=== PATIENT | female | born 2000 | race Caucasian/White ===

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

== ENCOUNTER 2020-02-20 13:33 | Emergency (ER) | payer OTHER, SELFPAY ==
[2020-02-20 14:08] VITALS: BP 132/51; PULSE 108; RESP 18; TEMP 36.3; O2SAT 100
[2020-02-20 14:25] LABS: Basophils Absolute Auto 0.1 K/mm3 (0.0-0.1); Basophils Percent Auto 0.5 % (0.2-1.2); Eosinophils Absolute Auto 0.2 K/mm3 (0-0.3); Eosinophils Percent Auto 2.2 % (0-4.4); Hematocrit 40.5 % (37.0-47.0); Hemoglobin 13.1 g/dL (12.0-15.0); Immature Granulocyte Absolute 0.03 K/mm3 (0.00-0.031); Immature Granulocyte Percent A 0.3 % (0-0.5); Lymphocytes Absolute Auto 3.52 K/mm3 (0.9-3.2); Lymphocytes Percent Auto 35.9 % (18.3-44.2); Mean Corpuscular HGB Conc 32.3 g/dl (32-36); Mean Corpuscular Hemoglobin 28.6 pg (26-34); Mean Corpuscular Volume 88.4 fl (80-100); Mean Platelet Volume 9.8 fl (7.4-10.4); Monocytes Absolute Auto 0.6 K/mm3 (0.1-0.6); Monocytes Percent Auto 5.6 % (2.6-8.5); Neutrophils Absolute Auto 5.4 K/mm3 (1.3-6.7); Neutrophils Percent Auto 55.5 % (45.5-73.1); Platelet Count Result 276 k/mm3 (150-375); Red Blood Count 4.58 M/mm3 (4.2-5.4); Red Cell Distribution Width 13.7 % (11.5-14.5); White Blood Count 9.8 K/mm3 (4.5-10.0)
[2020-02-20 14:37] LABS: Alanine Aminotransferase 22 U/L (4-35); Albumin Level 4.5 g/dL (3.7-5.6); Alkaline Phosphatase 149 U/L (45-116); Anion Gap 9 mmol/L (8-16); Aspartate Amino Transferase 24 U/L (14-36); Bilirubin,Total 0.2 mg/dL (0.2-1.3); Blood Urea Nitrogen 8 mg/dL (8-21); Calcium 9.7 mg/dL (8.9-10.7); Carbon Dioxide 27 mmol/L (22-30); Chloride 106 mmol/L (98-107); Estimated CRCL calculation 124 ml/min; Estimated Glomerular Filt Rate > 60; Glucose 90 mg/dL (65-105); Lipase 24 U/L (23-300); Sodium 142 mmol/L (134-143)
[2020-02-20 14:45] LABS: Add Urine Microscopic? YES; Appearance Urine Cloudy (Clear); Bacteria Urine Trace /hpf; Bilirubin Urine Negative (Negative); Blood Urine Negative (Negative); Color Urine Yellow (Yellow); Glucose Urine UA Negative (Negative); Ketones Urine Negative (Negative); Leukocyte Esterase Ur Negative LEU/UL (Negative); Mucus Urine Few /lpf; Nitrate Urine Negative (Negative); Protein Urine 1+ mg/dL (Negative); RBC Urine 0-2 /hpf (0-2); Squamous Epithelial Cell Urine Many /hpf (Few); Urobilinogen Urine Negative mg/dL (<2.0); WBC Urine 0-3 /hpf
--- NOTE | 2020-02-20 15:05 | ED.ABDPAIN ---
HPI - Abdominal Pain General Chief Complaint: Abdominal Pain Stated Complaint: abdominal pain Time Seen by Provider: 02/20/20 14:55 Source: patient Mode of arrival: ambulatory Limitations: no limitations History of Present Illness HPI narrative: Patient is a 19-year-old female complaining of abdominal pain diffuse, dull ache, 2 out of 10, nonradiating, intermittent started approximately 2 weeks ago. Patient also states that she has not had a menstrual cycle since her Implanon was removed a month ago and wants to know if she is . Patient denies any nausea vomiting diarrhea or fever. Patient denies vaginal bleeding or discharge. Related Data Home Medications Medication Instructions Recorded Confirmed aripiprazole 20 mg PO DAILY 11/17/19 Allergies Allergy/AdvReac Type Severity Reaction Status Date / Time latex Allergy Mild Rash Verified 11/17/19 10:11 grape flavor AdvReac Nausea and Verified 11/17/19 10:11 Vomiting Review of Systems Review of Systems: All systems reviewed & are unremarkable except as noted in HPI and below Constitutional: Constitutional: Denies body ache(s), Denies chills, Denies excessive sweating, Denies fatigue, Denies fever(s), Denies headache(s), Denies lethargy, Denies malaise, Denies weakness and Denies weight loss Eyes: Eyes: Denies blurry vision, Denies change in vision and Denies loss of vision ENT: Denies dizziness, Denies ear discharge, Denies headache(s), Denies lip swelling, Denies epistaxis, Denies nasal congestion, Denies neck pain, Denies throat swelling and Denies tongue swelling Cardiovascular: Cardiovascular: Denies chest pain, Denies chest pain at rest, Denies chest pain with activity, Denies diaphoresis, Denies rapid heart rate, Denies edema, Denies irregular heart rhythm, Denies lightheadedness, Denies palpitations, Denies dyspnea and Denies dyspnea on exertion Respiratory: Respiratory: Denies chest congestion, Denies cough, Denies hemoptysis, Denies dyspnea and Denies dyspnea on exertion Gastrointestinal: Gastrointestinal: Denies melena, Denies hematochezia, Denies diarrhea, Denies nausea, Denies vomiting and Denies hematemesis Musculoskeletal: Musculoskeletal: Denies abnormal gait, Denies deformity, Denies joint swelling, Denies limited range of motion, Denies neck pain and Denies numbness Neurologic: Denies Abnormal speech present, Denies abnormal gait, Denies confusion, Denies dizziness, Denies headache(s), Denies focal weakness, Denies loss of vision, Denies numbness, Denies Other visual disturbances, Denies Sensory deficit (Neuro) and Denies weakness Psychiatric: Psychiatric: Denies confusion, Denies depression, Denies auditory hallucinations, Denies homicidal ideation and Denies suicidal ideation Endocrine: Endocrine: Denies cold intolerance, Denies excessive sweating, Denies fatigue, Denies heat intolerance and Denies palpitations Hematologic/Lymphatic: Hematologic/Lymphatic: Denies easy bleeding and Denies easy bruising Allergic/Immunologic: Allergic/Immunologic: Denies lip swelling, Denies throat swelling and Denies tongue swelling PMFSH Past Medical History Medical History (Updated 02/20/20 @ 16:03 by Live Moreno MD) Anxiety Bipolar disorder Borderline personality disorder Depression Panic disorder Surgical History Surgical History No significant past surgical history Social History Social History Smoking status: Never smoker Alcohol intake: never Substance use: never Gender identity (if verbalized by the patient): Female Exam Const: General: cooperative, healthy appearing, comfortable, no acute distress, well developed, alert and awake; No confusion Orientation/consciousness: oriented to person, oriented to place, oriented to time, patient oriented x3 and No confusion Limitations: no limitations HENMT: Head: no
[2020-02-20 16:17] VITALS: BP 138/78; PULSE 84; RESP 17; O2SAT 98
== END 2020-02-20 16:17 | disposition home or self-care (01) ==
PROVIDERS: Emergency Medicine; Emergency Provider Emergency Medicine
DX: R10.84 Generalized abdominal pain (principal); F31.9 Bipolar disorder, unspecified; F60.3 Borderline personality disorder
CPT/HCPCS: 36415; 80053; 81001; 81025; 83690; 85025; 99283

== ENCOUNTER 2020-05-06 14:30 | Emergency (ER) | payer OTHER, SELFPAY ==
--- NOTE | ~2020-05-06 | XR_ITS ---
EXAMINATION: XR knee RT min 4V DATE: 05/06/2020 15:44 INDICATION: Right knee injury and pain. TECHNIQUE: 5 views of right knee were obtained. COMPARISON: None. FINDINGS: Bone alignment is normal. No fracture. Joint spaces are well maintained. There is no knee j oint effusion. IMPRESSION: 1. Normal right knee. Reviewed, dictated and finalized at location A. [employer] IMPRESSION: 1. Normal right knee.
[2020-05-06 14:40] VITALS: BP 173/68; PULSE 98; RESP 20; TEMP 36.6; O2SAT 100
--- NOTE | 2020-05-06 15:13 | ED.GENADULT ---
HPI - General Adult General Chief complaint: Extremity Injury, Lower Stated complaint: right leg pain Source: patient Mode of arrival: ambulatory Limitations: no limitations History of Present Illness HPI narrative: Patient presents for evaluation of right knee pain. She indicates she tripped while working at [employer] yesterday landed on both knees. She did not hit her head or have a loss of consciousness. She states a coworker opened her up and she heard 4 pops in the knee . She went back to work today and she took a break due to some pain she experienced in anterior aspect of right knee. She states following the fall yesterday she had a charley horse, but that has resolved. She currently rates pain as 3/10. Related Data Home Medications Medication Instructions Recorded Confirmed No Home Medications 05/06/20 05/06/20 Allergies Allergy/AdvReac Type Severity Reaction Status Date / Time latex Allergy Mild Hives Verified 05/06/20 14:49 acetaminophen [From [place]] AdvReac Mild Nausea and Verified 05/06/20 14:49 Vomiting amoxicillin AdvReac Mild Nausea and Verified 05/06/20 14:50 Vomiting grape flavor AdvReac Mild Nausea and Verified 05/06/20 14:49 Vomiting hydrocodone [From [place]] AdvReac Mild Nausea and Verified 05/06/20 14:49 Vomiting Review of Systems Review of Systems: Narrative: CONSTITUTIONAL: Denies fever, chills, or sweats. EYES: Denies visual changes, redness, or discharge. ENT: Denies rhinorrhea, congestion, sore throat, or otalgia. CARDIOVASCULAR: Denies chest pain, palpitations, or edema. RESPIRATORY: Denies cough or dyspnea. GASTROINTESTINAL: Denies abdominal pain, nausea, vomiting, or diarrhea. GENITOURINARY: Denies dysuria or hematuria. SKIN: Denies rash or itching. MUSCULOSKELETAL: Denies back pain. Reports right knee pain. NEUROLOGIC: Denies headache, numbness, dizziness, or weakness. PSYCHIATRIC: Denies anxiety or depression. [facility] Past Medical History Medical History (Updated 05/06/20 @ 15:53 by Austin Nichole, HAILEE, LIBBY) Anxiety Bipolar disorder Borderline personality disorder Depression Deviated septum Panic disorder Surgical History Surgical History Hx of tonsillectomy No significant past surgical history Family History Family History Father Schizophrenia Mother Bipolar disorder Social History Social History (Updated 05/06/20 @ 15:20 by Austin Nichole, HAILEE, ) Smoking status: Never smoker Alcohol intake: never Substance use: never Living arrangements: alone Occupation/Education: occupation Additional occupation/education comments: works at [employer] Gender identity (if verbalized by the patient): Female Sexual Orientation (if Verbalized by the Patient): Straight or Heterosexual Spiritual care concerns: No Exam Narrative: Exam Narrative: GENERAL: Well-appearing, well-nourished, and in no acute distress. HEAD: Normocephalic, atraumatic. EYES: PERRLA and EOMI. ENT: Nares clear, no rhinorrhea or epistaxis. Mucous membranes moist. Oropharynx without tonsillar hypertrophy exudate or other lesions. Bilateral TMs pearly steele nonbulging NECK: Supple. No adenopathy or masses. No carotid bruits or JVD CHEST: Clear to auscultation. No respiratory distress. No wheezes rales or rhonchi HEART: Regular rate and rhythm. No murmur heard. Normal peripheral pulses. ABDOMEN: Soft, nontender, nondistended, normal active bowel sounds. EXTREMITIES: Normal range of motion. No edema. Mild tenderness in anterior aspect of right knee. +crepitus right knee without obvious deformity. Ambulatory with steady gait SKIN: Warm, dry, no rash. NEURO: No focal deficits. Alert and oriented x3. PSYCH: Normal mood and affect. Course Course Emergency Course: This is a 19-year-old female who presents with right knee pain following a f
== END 2020-05-06 15:58 | disposition home or self-care (01) ==
PROVIDERS: Emergency Provider Nurse Practitioner
DX: S80.01XA Contusion of right knee, initial encounter (principal); W01.0XXA Fall on same level from slipping, tripping and stumbling without subsequent striking against object, initial encounter; Y99.0 Civilian activity done for income or pay
CPT/HCPCS: 73564; 81025; 99213; G0463

== ENCOUNTER 2020-07-17 07:32 | Outpatient (CLI) | payer OTHER, SELFPAY ==
--- NOTE | ~2020-07-17 | US_ITS ---
US right upper quadrant INDICATION: Elevated liver enzymes PROCEDURE: Realtime right upper abdominal ultrasound. COMPARISON: No prior studies for comparison. FINDINGS: The pancreas is normal without focal mass or pancreatic ductal dilation. Liver echotexture is normal without focal mass or intrahepatic biliary dilatation. There is normal directional flow i n the portal vein. The gallbladder is normal without stones, gallbladder wall thickening or pericholecystic fluid. Comm on bile duct measures 3 mm. No sonographic Bautista's sign. IMPRESSION: 1: Normal limited abdominal ultrasound. Reviewed, dictated and finalized at location A.
== END 2020-07-17 07:33 | disposition home or self-care (01) ==
PROVIDERS: PCP Emergency Medicine; Visit Provider Emergency Medicine
DX: R74.01 Elevation of levels of liver transaminase levels (principal)
CPT/HCPCS: 76705

== ENCOUNTER 2020-09-19 19:01 | Emergency (ER) | payer OTHER, SELFPAY ==
--- NOTE | ~2020-09-19 | XR_ITS ---
XR hand RT min 3V 09/19/2020 19:27 INDICATION: Right hand pain PROCEDURE: 3 views right hand COMPARISON: No prior studies for comparison. FINDINGS: Fracture, dislocation or subluxation is not identified. The soft tissues appear within norm al limits. No foreign bodies are identified. IMPRESSION: 1: NO ACUTE BONE OR JOINT ABNORMALITY IDENTIFIED. Reviewed, dictated and finalized at location A.
[2020-09-19 19:10] VITALS: BP 151/75; PULSE 89; RESP 16; TEMP 37.3; O2SAT 100
--- NOTE | 2020-09-19 19:37 | PC.NURSE ---
PT DECLINED ICE FOR COMFORT
--- NOTE | 2020-09-19 19:38 | ED.UPPEXIN ---
HPI - Extremity Injury (Upper) General Chief Complaint: Extremity Injury, Upper Stated Complaint: right hand injury and hives Time Seen by Provider: 09/19/20 19:38 Source: patient and RN notes reviewed Mode of arrival: ambulatory Limitations: no limitations History of Present Illness HPI narrative: 18-year-old female presents with multiple complaints. She reports approximate 1 hour ago she punched a wall with her right hand. She reports pain at the base of the third digit. She reports pain radiates to the thumb. She reports bruising. She also reports for several days she has had a rash on her face that started on her cheeks and is spread to her ears. She reports it is occasionally itchy. She denies any intervention for the rash. She denies swollen lips, swollen tongue, trouble breathing. She denies nausea, vomiting, diarrhea. MD complaint: injury to: right and hand Related Data Home Medications Medication Instructions Recorded Confirmed hydroxyzine pamoate 25 mg PO QID PRN 09/19/20 09/19/20 ziprasidone HCl 20 mg PO BID 09/19/20 09/19/20 Allergies Allergy/AdvReac Type Severity Reaction Status Date / Time latex Allergy Mild Hives Verified 09/19/20 19:23 acetaminophen [From [place]] AdvReac Mild Nausea and Verified 09/19/20 19:23 Vomiting amoxicillin AdvReac Mild Nausea and Verified 09/19/20 19:23 Vomiting grape flavor AdvReac Mild Nausea and Verified 09/19/20 19:23 Vomiting hydrocodone [From [place]] AdvReac Mild Nausea and Verified 09/19/20 19:23 Vomiting Review of Systems Review of Systems: Narrative: CONSTITUTIONAL: Denies malaise, chills, sweats, or fever. EYES: Denies visual changes, redness, or discharge. ENT: Denies swollen lips, swollen tongue CARDIOVASCULAR: Denies chest pain, palpitations, or edema. RESPIRATORY: Denies cough or dyspnea. GASTROINTESTINAL: Denies abdominal pain, nausea, vomiting, diarrhea SKIN: Reports occasionally itchy rash on her face MUSCULOSKELETAL: Reports right hand pain below the third digit NEUROLOGIC: Denies numbness, weakness All systems reviewed & are unremarkable except as noted in HPI and below PMFSH Past Medical History Medical History (Updated 09/19/20 @ 19:46 by Whitney Flores NP) Anxiety Bipolar disorder Borderline personality disorder Depression Deviated septum Panic disorder Surgical History Surgical History Hx of tonsillectomy No significant past surgical history Family History Family History Father Schizophrenia Mother Bipolar disorder Social History Social History (Updated 05/06/20 @ 15:20 by HAILEE Baez, ) Smoking status: Never smoker Alcohol intake: never Substance use: never Additional occupation/education comments: works at [employer] Gender identity (if verbalized by the patient): Female Spiritual care concerns: No Comments At time of signature, agree with nursing past medical, surgical, social and family history. There is no relevant family history pertinent to the presenting complaint Exam Narrative: Exam Narrative: GENERAL: Well-appearing, well-nourished, and in no acute distress. HEAD: Normocephalic EYES: PERRLA, conjunctivae clear NECK: Supple. CHEST: Speaks in full sentences. No respiratory distress. HEART: Regular rate and rhythm. Normal and equal peripheral pulses. EXTREMITIES: Right hand and digits of hand have normal strength and sensation. 5/5 strength with digit flexion, extension. Range of motion normal. No clubbing, cyanosis, or edema noted. tenderness below the third digit with mild ecchymosis. Skin intact. Normal digital cascade with flexion of fingers, median, ulnar and radial nerve intact. Normal sensation of each side of finger. Can perform 'okay' sign, 'cross over finger test of index and middle fingers' and 'thumbs up' sign. No scissoring. Normal thumb
== END 2020-09-19 19:52 | disposition home or self-care (01) ==
PROVIDERS: Emergency Provider Nurse Practitioner; PCP Nurse Practitioner Family
DX: S69.91XA Unspecified injury of right wrist, hand and finger(s), initial encounter (principal); W22.8XXA Striking against or struck by other objects, initial encounter; F31.9 Bipolar disorder, unspecified
CPT/HCPCS: 73130; 99213; G0463

== ENCOUNTER 2020-10-26 19:06 | Emergency (ER) | payer OTHER, SELFPAY ==
[2020-10-26 19:13] VITALS: BP 137/69; PULSE 103; RESP 16; TEMP 37.2; O2SAT 100
--- NOTE | 2020-10-26 19:40 | ED.GENADULT ---
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 MACHINE OPERATOR THERMIT who is set her up for an appointment later next week for retest Related Data Home Medications Medication Instructions Recorded Confirmed hydroxyzine pamoate 25 mg PO QID PRN 09/19/20 10/26/20 ziprasidone HCl 20 mg PO BID 09/19/20 10/26/20 sertraline 50 mg PO DAILY 10/26/20 10/26/20 Allergies Allergy/AdvReac Type Severity Reaction Status Date / Time latex Allergy Mild Hives Verified 10/26/20 19:24 cinnamon Allergy Swelling Verified 10/26/20 19:25 of Lip/Tongue/Throat acetaminophen [From [place]] AdvReac Mild Nausea and Verified 10/26/20 19:24 Vomiting amoxicillin AdvReac Mild Nausea and Verified 10/26/20 19:24 Vomiting grape flavor AdvReac Mild Nausea and Verified 10/26/20 19:24 Vomiting hydrocodone [From [place]] AdvReac Mild Nausea and Verified 10/26/20 19:24 Vomiting Review of Systems Review of Systems: Narrative: CONSTITUTIONAL: Denies fever, chills, sweats. EYES: Denies visual changes, redness, discharge. ENT: Denies rhinorrhea, congestion, sore throat, otalgia. CARDIOVASCULAR: Denies chest pain, palpitations, edema. RESPIRATORY: Denies dyspnea, wheezing, cough GASTROINTESTINAL: Denies abdominal pain,has nausea x 3 weeks, vomiting, diarrhea. GENITOURINARY: Denies dysuria, hematuria, abnormal discharge SKIN: Denies rash or itching. NEUROLOGIC: Denies numbness, or focal weakness. PSYCHIATRIC: Denies anxiety or depression. [facility] Past Medical History Medical History Anxiety Bipolar disorder Borderline personality disorder Depression Deviated septum Panic disorder Surgical History Surgical History Hx of tonsillectomy No significant past surgical history Family History Family History Father Schizophrenia Mother Bipolar disorder Social History Social History Smoking status: Never smoker Alcohol intake: never Substance use: never Additional occupation/education comments: works at [employer] Gender identity (if verbalized by the patient): Female Spiritual care concerns: No Comments At time of signature, I agree with nursing past medical, surgical, social and family history. There is no relevant family history pertinent to the presenting complaint. Exam Narrative: Exam Narrative: GENERAL: This is a well-nourished, well-developed patient, in mild distress. HEAD: normocephalic, atraumatic. EYES: Sclera clear/white. Vision is grossly intact. EARS: External ears normal, . Hearing grossly intact. NOSE: External nose normal without nasal discharge, nares without redness, no rhinorrhea. THROAT: Mucous membranes moist, NECK: Neck supple, CARDIOVASCULAR: Regular rate and rhythm without murmurs, gallops, or rubs. RESPIRATORY: Clear to auscultation. Breath sounds equal bilaterally. No wheezes, rales, or rhonchi. GASTROINTESTINAL: Abdomen soft, SKIN: warm, intact with no suspicious lesions or rash, good texture and turgor. NEURO: awake, alert, and oriented to person, place and time. There were no obvious focal neurologic abnormalities. Steady gait EXTREMITIES: Normal range of motion. BACK: Nontender without deformity Course Course Emergency Course: Patient comes to [facility] for test as has been nausea for 3 weeks and her WELDING MACHINE OPERATOR THERMIT asked
== END 2020-10-26 19:51 | disposition home or self-care (01) ==
PROVIDERS: Emergency Provider Nurse Practitioner; PCP Nurse Practitioner Family
DX: Z32.02 Encounter for pregnancy test, result negative (principal); R11.0 Nausea; F31.9 Bipolar disorder, unspecified; F41.9 Anxiety disorder, unspecified
CPT/HCPCS: 81003; 81025; 99213; G0463

== ENCOUNTER 2020-12-03 11:09 | Emergency (ER) | payer OTHER, SELFPAY ==
--- NOTE | 2020-12-03 11:12 | ED.URI ---
HPI - URI/Sore Throat General Chief Complaint: Upper Respiratory Infection Stated Complaint: nasal pain, swollen and sore Throat, headaches Time Seen by Provider: 12/03/20 11:13 Source: patient and RN notes reviewed History of Present Illness HPI Narrative: Patient is a 20-year-old female who presents the urgent care with complaints of nasal drainage, sore throat, headache. Patient denies of any known fevers. Denies body aches. States that her symptoms started 3 days ago. Denies of any known exposure to Covid and states that she has not been vaccinated. Patient has had exposure to strep but states that she has not had strep since her tonsils were removed years ago . No other acute complaints. No acute distress noted. Patient aware of the plan of care. Some parts of this dictation were generated by voice recognition software and may contain typographical and/or grammatical inaccuracies. Related Data Home Medications Medication Instructions Recorded Confirmed hydroxyzine pamoate 25 mg PO QID PRN 09/19/20 10/26/20 ziprasidone HCl 20 mg PO BID 09/19/20 10/26/20 sertraline 50 mg PO DAILY 10/26/20 10/26/20 Allergies Allergy/AdvReac Type Severity Reaction Status Date / Time latex Allergy Mild Hives Verified 10/26/20 19:24 cinnamon Allergy Swelling Verified 10/26/20 19:25 of Lip/Tongue/Throat acetaminophen [From [place]] AdvReac Mild Nausea and Verified 10/26/20 19:24 Vomiting amoxicillin AdvReac Mild Nausea and Verified 10/26/20 19:24 Vomiting grape flavor AdvReac Mild Nausea and Verified 10/26/20 19:24 Vomiting hydrocodone [From [place]] AdvReac Mild Nausea and Verified 10/26/20 19:24 Vomiting Review of Systems Review of Systems: CONSTITUTIONAL: Denies fever, chills, or sweats. EYES: Denies visual changes, redness, or discharge. ENT: Reports of rhinorrhea, nasal drainage, sore throat CARDIOVASCULAR: Denies chest pain, palpitations, or edema. RESPIRATORY: Denies cough or dyspnea. GASTROINTESTINAL: Denies abdominal pain, nausea, vomiting, or diarrhea. GENITOURINARY: Denies dysuria or hematuria. SKIN: Denies rash or itching. MUSCULOSKELETAL: Denies back pain, joint pain, or myalgia. NEUROLOGIC: Reports of headache All other systems reviewed are negative, except as documented in HPI. [facility] Past Medical History Medical History Anxiety Bipolar disorder Borderline personality disorder Depression Deviated septum Panic disorder Surgical History Surgical History Hx of tonsillectomy No significant past surgical history Family History Family History Father Schizophrenia Mother Bipolar disorder Social History Social History Smoking status: Never smoker Alcohol intake: never Substance use: never Additional occupation/education comments: works at [employer] Gender identity (if verbalized by the patient): Female Spiritual care concerns: No Comments At the time of my signature, I reviewed and agree with the nursing past medical, surgical, social, and family history. There is no relevant family history pertinent to the patient complaint. Exam Narrative: GENERAL: This is a well-nourished, well-developed patient, in no apparent distress. HEAD: normocephalic, atraumatic. EYES: PERRL. Sclera clear/white. Vision is grossly intact. EARS: External ears normal, auditory canals clear and without drainage, TMs normal without perforation. Hearing grossly intact. Noted cerumen bilaterally without impaction NOSE: External nose normal with no obvious nasal discharge, nares without redness, no rhinorrhea. THROAT: Mucous membranes moist, posterior pharynx clear. Mild postnasal drainage NECK: Neck supple, non-tender without lymphadenopathy CARDIOVASCULAR: Regular rate and rh
[2020-12-03 11:13] VITALS: BP 146/88; PULSE 74; RESP 20; TEMP 37.2; O2SAT 100
[2020-12-04 17:39] LABS: SARS-CoV-2 RNA PCR Negative
== END 2020-12-03 11:30 | disposition home or self-care (01) ==
PROVIDERS: Emergency Provider Nurse Practitioner Family; PCP Nurse Practitioner Family
DX: J06.9 Acute upper respiratory infection, unspecified (principal); Z20.822 Contact with and (suspected) exposure to COVID-19; F41.9 Anxiety disorder, unspecified; F31.9 Bipolar disorder, unspecified
CPT/HCPCS: 87081; 87880; 99213; C9803; G0463; U0003; U0005

== ENCOUNTER 2021-04-05 12:59 | Emergency (ER) | payer OTHER, MEDICAID, SELFPAY ==
--- NOTE | ~2021-04-05 | XR_ITS ---
EXAMINATION: XR finger 3rd LT min 2V INDICATION: Left third finger pain TECHNIQUE: Four views of the left third finger are obtained. COMPARISON: None available FINDINGS: There is soft tissue swelling of the finger. Bone alignment is normal. There is fracture. T he joint spaces are normal. IMPRESSION: 1. Soft tissue swelling without acute osseous abnormality. Reviewed, dictated and finalized at location A. ANALYTICS CHIEF SCIENTIST
[2021-04-05 13:11] VITALS: BP 113/76; PULSE 106; RESP 14; TEMP 37; O2SAT 100
[2021-04-05 13:15] VITALS: BP 113/76; PULSE 106; RESP 14; TEMP 37; O2SAT 100
--- NOTE | 2021-04-05 13:31 | ED.UPPEXIN ---
HPI - Extremity Injury (Upper) General Chief Complaint: Extremity Injury, Upper Stated Complaint: left hand finger injury Source: patient and RN notes reviewed Mode of arrival: ambulatory History of Present Illness HPI narrative: This is a 20-year-old female presented to urgent care with left middle finger pain status post trauma. According to patient she slammed her finger in a door yesterday. She notes that her finger started swelling. No neurovascular deficiency noted, compartmental syndrome negative, sensations positive, pulses palpable, capillary refill within normal limits Related Data Home Medications Medication Instructions Recorded Confirmed hydroxyzine pamoate 25 mg PO QID PRN 09/19/20 04/05/21 ziprasidone HCl 20 mg PO DAILY 09/19/20 04/05/21 sertraline 150 mg PO DAILY 10/26/20 04/05/21 albuterol 90 mcg INHALATION Q4H PRN 04/05/21 04/05/21 ergocalciferol (vitamin D2) 1,250 mcg PO WEEKLY 04/05/21 04/05/21 [Vitamin D2] ziprasidone HCl 40 mg PO HS 04/05/21 04/05/21 Allergies Allergy/AdvReac Type Severity Reaction Status Date / Time latex Allergy Mild Hives Verified 04/05/21 13:14 cinnamon Allergy Swelling Verified 04/05/21 13:14 of Lip/Tongue/Throat acetaminophen [From [place]] AdvReac Mild Nausea and Verified 04/05/21 13:14 Vomiting amoxicillin AdvReac Mild Nausea and Verified 04/05/21 13:14 Vomiting grape flavor AdvReac Mild Nausea and Verified 04/05/21 13:14 Vomiting hydrocodone [From [place]] AdvReac Mild Nausea and Verified 04/05/21 13:14 Vomiting diphenhydramine AdvReac Nightmare Verified 04/05/21 13:15 [From [place]] Review of Systems Review of Systems: A 14 organ system Review of Systems was performed and pertinent positives included in the HPI, otherwise remaining ROS is negative. [facility] Past Medical History Medical History Anxiety Bipolar disorder Borderline personality disorder Depression Deviated septum Panic disorder Surgical History Surgical History Hx of tonsillectomy No significant past surgical history Family History Family History Father Schizophrenia Mother Bipolar disorder Social History Social History Smoking status: Never smoker Alcohol intake: never Substance use: never Additional occupation/education comments: works at [employer] Gender identity (if verbalized by the patient): Female Sexual Orientation (if Verbalized by the Patient): Straight or Heterosexual Spiritual care concerns: No Exam Narrative: GENERAL: This is a well-nourished, well-developed patient, in no apparent distress. HEAD: normocephalic, atraumatic. EYES: PERRL. Sclera clear/white. Vision is grossly intact. EARS: External ears normal, auditory canals clear and without drainage, TMs normal without perforation. Hearing grossly intact. NOSE: External nose normal with no obvious nasal discharge, nares without redness, no rhinorrhea. THROAT: Mucous membranes moist, posterior pharynx clear. NECK: Neck supple, non-tender without lymphadenopathy, masses or thyromegaly. CARDIOVASCULAR: Regular rate and rhythm without murmurs, gallops, or rubs. RESPIRATORY: Clear to auscultation. Breath sounds equal bilaterally. No wheezes, rales, or rhonchi. GASTROINTESTINAL: Abdomen soft, non-tender, nondistended. Bowel sounds are active. No hepato-splenomegaly, or palpable masses. No guarding. SKIN: warm, intact with no suspicious lesions or rash, good texture and turgor. NEURO: awake, alert, and oriented to person, place and time. There were no obvious focal neurologic abnormalities. Steady gait EXTREMITIES: Limited range of motion to the left pointer finger. Slight edema to the left middle finger edema. No calf tenderness. Negative Homans sign lissett
== END 2021-04-05 13:39 | disposition home or self-care (01) ==
PROVIDERS: Emergency Provider Nurse Practitioner; PCP Nurse Practitioner Family
DX: S63.613A Unspecified sprain of left middle finger, initial encounter (principal); W23.0XXA Caught, crushed, jammed, or pinched between moving objects, initial encounter
CPT/HCPCS: 73140; 99213; G0463

== ENCOUNTER 2021-04-09 18:55 | Emergency (ER) | payer OTHER, MEDICAID, SELFPAY ==
[2021-04-09 19:02] VITALS: BP 131/55; PULSE 90; RESP 14; TEMP 36.6; O2SAT 100
[2021-04-09 19:17] VITALS: BP 131/55; PULSE 90; RESP 14; TEMP 36.6; O2SAT 100
--- NOTE | 2021-04-09 19:25 | ED.GENADULT ---
HPI - General Adult General Chief complaint: Wound/Laceration Stated complaint: Eye Problem/Cat Bite Source: patient Mode of arrival: ambulatory Limitations: no limitations History of Present Illness HPI narrative: 20-year-old female presents to [facility] with multiple complaints. Patient reports that her dog was recently diagnosed with pinkeye and she has been cleaning out his eyes. Patient reports that she is now concerned she is developing bilateral pinkeye. Patient reports that she is having burning and itching to her eyes. Patient has not tried using [id number] medications. Patient reports that her cat also bit her to her right middle finger 1 week ago. Patient's last tetanus shot was completed April 2020. Patient reports there is to hardened areas and she is concerned about foreign bodies. Patient also reports that she noticed redness and mild swelling to the area today. Patient was not evaluated for cat bite after injury occurred. Patient denies fever, bites, chills, nausea, vomiting or diarrhea Onset (ago): week(s) (1) Associated symptoms: denies other symptoms Treatments prior to arrival: none Related Data Home Medications Medication Instructions Recorded Confirmed hydroxyzine pamoate 25 mg PO QID PRN 09/19/20 04/09/21 ziprasidone HCl 20 mg PO DAILY 09/19/20 04/09/21 sertraline 150 mg PO DAILY 10/26/20 04/09/21 albuterol 90 mcg INHALATION Q4H PRN 04/05/21 04/09/21 ergocalciferol (vitamin D2) 1,250 mcg PO WEEKLY 04/05/21 04/09/21 [Vitamin D2] ziprasidone HCl 40 mg PO HS 04/05/21 04/09/21 Allergies Allergy/AdvReac Type Severity Reaction Status Date / Time latex Allergy Mild Hives Verified 04/09/21 19:15 cinnamon Allergy Swelling Verified 04/09/21 19:15 of Lip/Tongue/Throat acetaminophen [From [place]] AdvReac Mild Nausea and Verified 04/09/21 19:15 Vomiting amoxicillin AdvReac Mild Nausea and Verified 04/09/21 19:15 Vomiting grape flavor AdvReac Mild Nausea and Verified 04/09/21 19:15 Vomiting hydrocodone [From [place]] AdvReac Mild Nausea and Verified 04/09/21 19:15 Vomiting diphenhydramine AdvReac Nightmare Verified 04/09/21 19:15 [[facility]] Review of Systems Constitutional: Constitutional: Denies chills and Denies fever(s) Eyes: Comments: Bilateral eye itching and burning ENT: Denies dysphagia and Denies vertigo Respiratory: Respiratory: Denies cough and Denies dyspnea Musculoskeletal: Comments: Erythema and cat bite to right middle finger PMFSH Past Medical History Medical History Anxiety Bipolar disorder Borderline personality disorder Depression Deviated septum Panic disorder Surgical History Surgical History Hx of tonsillectomy No significant past surgical history Family History Family History Father Schizophrenia Mother Bipolar disorder Social History Social History Smoking status: Never smoker Alcohol intake: never Substance use: never Additional occupation/education comments: works at [employer] Gender identity (if verbalized by the patient): Female Sexual Orientation (if Verbalized by the Patient): Straight or Heterosexual Spiritual care concerns: No Comments At time of signature, I agree with nursing past medical, surgical, social and family history. There is no relevant family history pertinent to the presenting complaint. Exam Const: General: no acute distress Orientation/consciousness: patient oriented x3 Eyes: Conjunctivae: conjunctivae normal Pupils: Equal, round and reactive pupils present Direct Ophthalmoscopy: no photophobia Other: No injection noted bilaterally to conjunctivo- Neck: Neck: normal visual inspection Resp: Effort & Inspection: normal respiratory effort, no
== END 2021-04-09 19:37 | disposition home or self-care (01) ==
PROVIDERS: Emergency Provider Nurse Practitioner Family; PCP Nurse Practitioner Family
DX: H57.13 Ocular pain, bilateral (principal); W55.01XA Bitten by cat, initial encounter
CPT/HCPCS: 99213; G0463

== ENCOUNTER 2021-04-21 16:26 | Emergency (ER) | payer OTHER, MEDICAID, SELFPAY ==
[2021-04-21 16:36] VITALS: BP 118/73; PULSE 86; RESP 16; TEMP 37.6; O2SAT 99
--- NOTE | 2021-04-21 17:08 | ED.NAVMDI ---
HPI - Nausea/Vomiting/Diarrhea General Chief complaint: Nausea/Vomiting/Diarrhea Stated complaint: severe cramps due to new medication Time Seen by Provider: 04/21/21 16:51 Source: patient and RN notes reviewed Mode of arrival: ambulatory Limitations: no limitations History of Present Illness HPI Narrative: Patient presents today complaining of nausea, abdominal cramping, diarrhea. Symptoms have been present for almost 2 weeks. States 4-5 diarrhea stools per day. Denies blood or mucus in the stool. She thought initially her symptoms are due to lithium that she started a few weeks ago, but she has also been concurrently taking clindamycin for a cat and dog bite, Which she finishes tomorrow.Patient cannot call her doctor regarding the lithium because she only is in the office every Thursday, but is on vacation this coming week. MD elicited complaint: nausea and diarrhea Related Data Home Medications Medication Instructions Recorded Confirmed hydroxyzine pamoate 25 mg PO QID PRN 09/19/20 04/21/21 ziprasidone HCl 20 mg PO DAILY 09/19/20 04/21/21 ergocalciferol (vitamin D2) 1,250 mcg PO WEEKLY 04/05/21 04/21/21 [Vitamin D2] ziprasidone HCl 40 mg PO HS 04/05/21 04/21/21 buspirone 10 mg PO DAILY 04/21/21 04/21/21 lithium carbonate 300 mg PO BID 04/21/21 04/21/21 sertraline 100 mg PO DAILY 04/21/21 04/21/21 triamcinolone acetonide See Rx Instructions .ROUTE .COMPLEX 04/21/21 04/21/21 Allergies Allergy/AdvReac Type Severity Reaction Status Date / Time latex Allergy Mild Hives Verified 04/21/21 16:54 cinnamon Allergy Swelling Verified 04/21/21 16:54 of Lip/Tongue/Throat acetaminophen [From [place]] AdvReac Mild Nausea and Verified 04/21/21 16:54 Vomiting amoxicillin AdvReac Mild Nausea and Verified 04/21/21 16:54 Vomiting grape flavor AdvReac Mild Nausea and Verified 04/21/21 16:54 Vomiting hydrocodone [From [place]] AdvReac Mild Nausea and Verified 04/21/21 16:54 Vomiting diphenhydramine AdvReac Nightmare Verified 04/21/21 16:54 [From Benad[place]] Review of Systems Review of Systems: CONSTITUTIONAL: Denies body aches, fever, chills, or sweats. EYES: Denies visual changes, redness, or discharge. ENT: Denies rhinorrhea, congestion, sore throat, or otalgia. CARDIOVASCULAR: Denies chest pain, palpitations, or edema. RESPIRATORY: Denies cough or dyspnea. GASTROINTESTINAL: Denies abdominal pain, vomiting. +Nausea, abdominal cramping, diarrhea GENITOURINARY: Denies dysuria or hematuria. SKIN: Denies rash, itching, or wounds. MUSCULOSKELETAL: Denies back pain, joint pain, or myalgia. NEUROLOGIC: Denies headache, numbness, tingling, or weakness. PSYCH: Denies depression or anxiety. COUNT INCLUDES THE [facility] Past Medical History Medical History Anxiety Bipolar disorder Borderline personality disorder Depression Deviated septum Panic disorder Surgical History Surgical History Hx of tonsillectomy No significant past surgical history Family History Family History Father Schizophrenia Mother Bipolar disorder Social History Social History Smoking status: Never smoker Alcohol intake: never Substance use: never Additional occupation/education comments: works at [employer] Gender identity (if verbalized by the patient): Female Sexual Orientation (if Verbalized by the Patient): Straight or Heterosexual Spiritual care concerns: No Comments At time of signature, I have reviewed and agree with nursing past medical, surgical, social and family history unless otherwise noted. Please see nursing chart for further information. There is no relevant family history pertinent to the presenting complaint Exam Narrative: GENERAL: Well-appearing, well-nourished,
== END 2021-04-21 17:15 | disposition home or self-care (01) ==
PROVIDERS: Emergency Provider Nurse Practitioner; PCP Nurse Practitioner Family
DX: R19.7 Diarrhea, unspecified (principal); T50.905A Adverse effect of unspecified drugs, medicaments and biological substances, initial encounter; F31.9 Bipolar disorder, unspecified; F41.9 Anxiety disorder, unspecified
CPT/HCPCS: 99211; G0463

== ENCOUNTER 2021-06-02 18:28 | Emergency (ER) | payer MEDICARE, MEDICAID, SELFPAY ==
[2021-06-02 18:44] VITALS: BP 145/67; PULSE 87; RESP 16; TEMP 36.5; O2SAT 100
--- NOTE | 2021-06-02 19:11 | ED.GENADULT ---
HPI - General Adult General Chief complaint: Ear Stated complaint: ear pain Source: patient Mode of arrival: ambulatory Limitations: no limitations History of Present Illness HPI narrative: Patient presents for evaluation of bilateral ear pain. She states that her pain has been present for the past 4 to 5 days. She denies any hearing loss or drainage from the ears. She indicates she is chronic tinnitus. She reports frontal headache that started today. She states pain is throbbing, 8/10 in severity. She has chronic nausea, vomiting and diarrhea. She states that she has seen several providers for this and was told her GI symptoms were 2/2 psychotropic medications. She is not here for evaluation of her GI symptoms she states that ibuprofen does help with her GI symptoms. She has not tried any therapies to assist with her headache or bilateral ear pain. She has experienced chills today but denies any fever or respiratory symptoms. She had Covid approximately a year and a half ago. She has not received COVID vaccinations. No recent sick contacts to her knowledge. Denies any SI, HI, AH, VH. Related Data Home Medications Medication Instructions Recorded Confirmed hydroxyzine pamoate 25 mg PO QID PRN 09/19/20 06/02/21 ziprasidone HCl 20 mg PO DAILY 09/19/20 06/02/21 ziprasidone HCl 40 mg PO HS 04/05/21 06/02/21 buspirone 10 mg PO BID 04/21/21 06/02/21 sertraline 100 mg PO DAILY 04/21/21 06/02/21 carbamazepine 200 mg PO DAILY 06/02/21 06/02/21 lithium carbonate 450 mg PO BID 06/02/21 06/02/21 propranolol 10 mg PO BID 06/02/21 06/02/21 Allergies Allergy/AdvReac Type Severity Reaction Status Date / Time latex Allergy Mild Hives Verified 04/21/21 16:54 cinnamon Allergy Swelling Verified 04/21/21 16:54 of Lip/Tongue/Throat acetaminophen [From [place]] AdvReac Mild Nausea and Verified 04/21/21 16:54 Vomiting amoxicillin AdvReac Mild Nausea and Verified 04/21/21 16:54 Vomiting grape flavor AdvReac Mild Nausea and Verified 04/21/21 16:54 Vomiting hydrocodone [From [place]] AdvReac Mild Nausea and Verified 04/21/21 16:54 Vomiting diphenhydramine AdvReac Nightmare Verified 04/21/21 16:54 [From Benad[place]] Review of Systems Review of Systems: CONSTITUTIONAL: Reports chills. Denies fever, or sweats. EYES: Denies visual changes, redness, or discharge. ENT: Reports bilateral ear pain and sinus congestion. Denies rhinorrhea or sore throat CARDIOVASCULAR: Denies chest pain, palpitations, or edema. RESPIRATORY: Denies cough or dyspnea. GASTROINTESTINAL: Reports chronic nausea, vomiting and diarrhea. Denies abdominal pain GENITOURINARY: Denies dysuria or hematuria. SKIN: Denies rash or itching. MUSCULOSKELETAL: Denies back pain, joint pain, or myalgia. NEUROLOGIC: Reports headache. Denies numbness, dizziness, or weakness. PSYCHIATRIC: Denies anxiety or depression. PMFSH Past Medical History Medical History Anxiety Bipolar disorder Borderline personality disorder Depression Deviated septum Panic disorder Surgical History Surgical History Hx of tonsillectomy No significant past surgical history Family History Family History Father Schizophrenia Mother Bipolar disorder Social History Social History Smoking status: Never smoker Alcohol intake: never Substance use: never Additional occupation/education comments: works at [employer] Gender identity (if verbalized by the patient): Female Sexual Orientation (if Verbalized by the Patient): Straight or Heterosexual Spiritual care concerns: No Exam Narrative: GENERAL: Well-appearing, well-nourished, and in no acute distress. HEAD: Normocephalic, atraumatic. EYES: PERRLA and EOMI. ENT: Na
== END 2021-06-02 19:40 | disposition home or self-care (01) ==
PROVIDERS: Emergency Provider Nurse Practitioner; PCP Nurse Practitioner Family
DX: H69.83 Other specified disorders of Eustachian tube, bilateral (principal); G44.209 Tension-type headache, unspecified, not intractable; Z20.822 Contact with and (suspected) exposure to COVID-19; F41.9 Anxiety disorder, unspecified; F31.9 Bipolar disorder, unspecified
CPT/HCPCS: 87426; 87804; 99213; C9803; G0463

== ENCOUNTER 2021-06-25 12:13 | Emergency (ER) | payer MEDICARE, MEDICAID, SELFPAY ==
[2021-06-25 12:21] VITALS: BP 119/68; PULSE 76; RESP 18; TEMP 36.8; O2SAT 100
--- NOTE | 2021-06-25 12:59 | ED.EAR ---
HPI - Ear Problem General Chief complaint: Ear Stated complaint: sloshing sound in ear Time Seen by Provider: 06/25/21 12:55 Source: patient, RN notes reviewed and old records reviewed Mode of arrival: ambulatory Limitations: no limitations History of Present Illness HPI Narrative: 20-year-old female presents to [facility] with complaints of left ear feeling like there is water in it, and the right ear has pressure feeling. Patient states she does have some runny nose and sinus congestion, denies any sore throat no cough and no fever. Patient reports that she had COVID in December of 2019 and has not had COVID vaccinations or flu shot.Patient has not had any fevers, chills or body aches, has been taking Ibuprofen for her discomfort. MD Complaint: ear pain Location: bilateral Associated symptoms ear: rhinorrhea Treatment prior to arrival: other (Ibuprofen) Related Data Home Medications Medication Instructions Recorded Confirmed hydroxyzine pamoate 25 mg PO QID PRN 09/19/20 06/25/21 ziprasidone HCl 40 mg PO BID 04/05/21 06/25/21 buspirone 10 mg PO BID 04/21/21 06/25/21 sertraline 100 mg PO DAILY 04/21/21 06/25/21 carbamazepine 200 mg PO BID 06/02/21 06/25/21 lithium carbonate 450 mg PO BID 06/02/21 06/25/21 propranolol 10 mg PO BID 06/02/21 06/25/21 Allergies Allergy/AdvReac Type Severity Reaction Status Date / Time latex Allergy Mild Hives Verified 06/25/21 12:42 cinnamon Allergy Swelling Verified 06/25/21 12:42 of Lip/Tongue/Throat acetaminophen [From [place]] AdvReac Mild Nausea and Verified 06/25/21 12:42 Vomiting amoxicillin AdvReac Mild Nausea and Verified 06/25/21 12:42 Vomiting grape flavor AdvReac Mild Nausea and Verified 06/25/21 12:42 Vomiting hydrocodone [From [place]] AdvReac Mild Nausea and Verified 06/25/21 12:42 Vomiting diphenhydramine AdvReac Nightmare Verified 06/25/21 12:42 [From Benadryl] Review of Systems Review of Systems: CONSTITUTIONAL: Denies fever, chills, or sweats. EYES: Denies visual changes, redness, or discharge. ENT: Positive for rhinorrhea, congestion,no sore throat, bilateral ear otalgia. CARDIOVASCULAR: Denies chest pain, palpitations, or edema. RESPIRATORY: Denies cough or dyspnea. GASTROINTESTINAL: Denies abdominal pain, nausea, vomiting, or diarrhea. GENITOURINARY: Denies dysuria or hematuria. SKIN: Denies rash or itching. MUSCULOSKELETAL: Denies back pain, joint pain, or myalgia. NEUROLOGIC: Denies headache, numbness, or weakness. PSYCHIATRIC: Positive for history of anxiety or depression. All systems reviewed & are unremarkable except as noted in HPI and below PMFSH Past Medical History Medical History (Updated 06/25/21 @ 22:29 by Radha Sanchez NP) Anxiety Bipolar disorder Borderline personality disorder COVID-14 January 2020 Depression Deviated septum Panic disorder Surgical History Surgical History Hx of tonsillectomy No significant past surgical history Family History Family History Father Schizophrenia Mother Bipolar disorder Social History Social History Smoking status: Never smoker Alcohol intake: never Substance use: never Additional occupation/education comments: works at [employer] Gender identity (if verbalized by the patient): Female Sexual Orientation (if Verbalized by the Patient): Straight or Heterosexual Spiritual care concerns: No Comments At time of signature, agree with nursing past medical, surgical, social and family history. There is no relevant family history pertinent to the presenting complaint Exam Narrative: GENERAL: Well-appearing, well-nourished, and in no acute distress. HEAD: Normocephalic, atraumatic. EYES: PERRLA and EOMI. ENT: Nares pink with clear rhinorrhea no epistaxis. Mucous membranes moist.
== END 2021-06-25 13:20 | disposition home or self-care (01) ==
PROVIDERS: Emergency Provider Registered Nurse; PCP Nurse Practitioner Family
DX: H92.03 Otalgia, bilateral (principal); J31.0 Chronic rhinitis; F31.9 Bipolar disorder, unspecified; F41.9 Anxiety disorder, unspecified; F41.0 Panic disorder [episodic paroxysmal anxiety]; Z86.16 Personal history of COVID-19
CPT/HCPCS: 99211; G0463

== ENCOUNTER 2021-09-14 23:18 | Emergency (ER) | payer MEDICARE, MEDICAID, SELFPAY ==
[2021-09-14 23:19] VITALS: BP 137/81; PULSE 89; RESP 20; TEMP 36.3; O2SAT 100
--- NOTE | 2021-09-14 23:51 | ED.ABDPAIN ---
HPI - Abdominal Pain General Chief Complaint: Abdominal Pain Stated Complaint: Abd pain, n/v Time Seen by Provider: 09/14/21 23:36 Source: patient History of Present Illness HPI narrative: Patient presents with epigastric pain nausea and vomiting. Reports she had episode on the of this month Will keep anything down her symptoms resolved and she was doing well until a couple days ago. Reports everything she just comes up. She was seen in another ER was given famotidine and Zofran but she continues have symptoms so she presented here for further evaluation. Her pain is primarily in her epigastric area as well as her left abdomen. Is achy, constant, no clear aggravating or alleviating factors, no radiation. She denies any diarrhea or constipation denies any urinary symptoms fevers or known sick contacts denies any recent changes in medications denies any recent antibiotics. Related Data Home Medications Medication Instructions Recorded Confirmed hydroxyzine pamoate 25 mg PO QID PRN 09/19/20 06/25/21 ziprasidone HCl 40 mg PO BID 04/05/21 06/25/21 buspirone 10 mg PO BID 04/21/21 06/25/21 sertraline 100 mg PO DAILY 04/21/21 06/25/21 carbamazepine 200 mg PO BID 06/02/21 06/25/21 lithium carbonate 450 mg PO BID 06/02/21 06/25/21 propranolol 10 mg PO BID 06/02/21 06/25/21 Allergies Allergy/AdvReac Type Severity Reaction Status Date / Time latex Allergy Mild Hives Verified 09/14/21 23:23 cinnamon Allergy Swelling Verified 09/14/21 23:23 of Lip/Tongue/Throat acetaminophen [From [place]] AdvReac Mild Nausea and Verified 09/14/21 23:23 Vomiting amoxicillin AdvReac Mild Nausea and Verified 09/14/21 23:23 Vomiting grape flavor AdvReac Mild Nausea and Verified 09/14/21 23:23 Vomiting hydrocodone [From [place]] AdvReac Mild Nausea and Verified 09/14/21 23:23 Vomiting adhesive tape AdvReac Hives Verified 09/14/21 23:23 albuterol AdvReac Anaphylaxis Verified 09/15/21 00:20 banana AdvReac Anaphylaxis Verified 09/15/21 00:20 diphenhydramine AdvReac Nightmare Verified 09/14/21 23:23 [From Benadryl] Review of Systems Review of Systems: CONSTITUTIONAL: Denies fever, chills, or sweats. EYES: Denies visual changes, redness, or discharge. ENT: Denies rhinorrhea, congestion, sore throat, or otalgia. CARDIOVASCULAR: Denies chest pain, palpitations, or edema. RESPIRATORY: Denies cough or dyspnea. GASTROINTESTINAL: Reports abdominal pain nausea vomiting GENITOURINARY: Denies dysuria or hematuria. SKIN: Denies rash or itching. MUSCULOSKELETAL: Denies back pain, joint pain, or myalgia. NEUROLOGIC: Denies headache, numbness, dizziness, or weakness. PSYCHIATRIC: Denies anxiety or depression. All systems reviewed & are unremarkable except as noted in HPI and below PMFSH Past Medical History Medical History Anxiety Bipolar disorder Borderline personality disorder COVID-14 January 2020 Depression Deviated septum Panic disorder Surgical History Surgical History Hx of tonsillectomy No significant past surgical history Family History Family History Father Schizophrenia Mother Bipolar disorder Social History Social History Smoking status: Never smoker Alcohol intake: never Substance use: never Additional occupation/education comments: works at [employer] Gender identity (if verbalized by the patient): Female Sexual Orientation (if Verbalized by the Patient): Straight or Heterosexual Spiritual care concerns: No Exam Narrative: GENERAL: Well-appearing, well-nourished, and in no acute distress. HEAD: Normocephalic, atraumatic. EYES: PERRLA and EOMI. ENT: Nares clear, no rhinorrhea or epistaxis. Mucous membranes moist. NECK: Supple. No masses. No JVD ABDOMEN:
[2021-09-15 00:07] LABS: Basophils Absolute Auto 0.1 K/mm3 (0.0-0.1); Basophils Percent Auto 0.5 % (0.2-1.2); Eosinophils Absolute Auto 0.6 K/mm3 (0-0.3); Eosinophils Percent Auto 4.9 % (0-4.4); Hematocrit 40.8 % (37.0-47.0); Immature Granulocyte Absolute 0.06 K/mm3 (0.00-0.031); Immature Granulocyte Percent A 0.5 % (0-0.5); Mean Corpuscular HGB Conc 31.9 g/dl (32-36); Mean Corpuscular Hemoglobin 29.7 pg (26-34); Mean Corpuscular Volume 93.4 fl (80-100); Mean Platelet Volume 9.6 fl (7.4-10.4); Monocytes Absolute Auto 0.8 K/mm3 (0.1-0.6); Monocytes Percent Auto 6.6 % (2.6-8.5); Neutrophils Absolute Auto 7.1 K/mm3 (1.3-6.7); Neutrophils Percent Auto 58.5 % (45.5-73.1); Platelet Count Result 308 k/mm3 (150-375); Red Blood Count 4.37 M/mm3 (4.2-5.4); Red Cell Distribution Width 12.6 % (11.5-14.5); White Blood Count 12.1 K/mm3 (4.5-10.0)
[2021-09-15 00:10] LABS: Alanine Aminotransferase 17 U/L (6-35); Albumin Level 4.4 g/dL (3.5-5.1); Alkaline Phosphatase 127 U/L (38-126); Anion Gap 5 mmol/L (8-16); Aspartate Amino Transferase 25 U/L (14-36); Bilirubin,Total 0.2 mg/dL (0.2-1.3); Blood Urea Nitrogen 12 mg/dL (7-17); Calcium 9.1 mg/dL (8.4-10.2); Carbon Dioxide 28 mmol/L (22-30); Chloride 103 mmol/L (98-107); Estimated Glomerular Filt Rate > 60; Glucose 101 mg/dL (65-110); Lipase 28 U/L (23-300); Potassium 4.5 mmol/L (3.4-5.0); Sodium 136 mmol/L (137-145)
[2021-09-15 00:17] LABS: Appearance Urine Clear (Clear); Bilirubin Urine Negative (Negative); Blood Urine 3+ (Negative); Color Urine Yellow (Yellow); Glucose Urine UA Negative (Negative); Ketones Urine Negative (Negative); Leukocyte Esterase Ur Negative LEU/UL (Negative); Nitrate Urine Negative (Negative); Protein Urine Trace mg/dL (Negative); Specific Grav Ur 1.025 (1.001-1.035); Urobilinogen Urine 0.2 mg/dL (<2.0)
[2021-09-15] MEDS: SODIUM CHLORIDE 0.9% IV 1,000 ML 999 ML IV CONT (00:21)
[2021-09-15] MEDS: PROCHLORPERAZINE EDISYLATE 10 MG/2 ML VIAL IV PUSH (00:21)
[2021-09-15] MEDS: LIDOCAINE HCL 2% VISC SOLN 15 ML UDC 20 ML PO (00:23)
[2021-09-15] MEDS: MAG HYDROX/AL HYDROX/SIMETH 30 ML UDC PO (00:23)
[2021-09-15 00:33] LABS: Bacteria Urine Trace /hpf; Mucus Urine Rare /lpf; Squamous Epithelial Cell Urine Many /hpf (Few)
[2021-09-15 00:34] LABS: Add Urine Microscopic? YES
[2021-09-15 01:53] VITALS: BP 122/58; PULSE 81; RESP 16; O2SAT 98
== END 2021-09-15 01:51 | disposition home or self-care (01) ==
PROVIDERS: Emergency Provider Emergency Medicine
DX: R11.2 Nausea with vomiting, unspecified (principal); R10.13 Epigastric pain
CPT/HCPCS: 36415; 80053; 81001; 81025; 83605; 83690; 85025; 96361; 96374; 99284; A9270; J0780; J7030

== ENCOUNTER 2022-01-09 02:16 | Emergency (ER) | payer MEDICARE, SELFPAY ==
[2022-01-09 02:17] VITALS: BP 133/70; PULSE 76; RESP 18; TEMP 36.3; O2SAT 100
[2022-01-09 04:51] LABS: Add Urine Microscopic? YES; Appearance Urine Turbid (Clear); Bilirubin Urine 1+ (Negative); Blood Urine 3+ (Negative); Color Urine Light Red (Yellow); Glucose Urine UA Negative (Negative); Ketones Urine Trace mg/dL (Negative); Leukocyte Esterase Ur Trace LEU/UL (Negative); Nitrate Urine Negative (Negative); Protein Urine 2+ mg/dL (Negative); Specific Grav Ur 1.025 (1.001-1.035); Urobilinogen Urine 0.2 mg/dL (<2.0)
[2022-01-09 04:54] LABS: Bacteria Urine 4+ /hpf; Mucus Urine Heavy /lpf; RBC Urine 51-75 /hpf (0-2); Squamous Epithelial Cell Urine Few /hpf (Few); WBC Urine 31-50 /hpf
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
[2022-01-09 05:43] VITALS: BP 118/82; PULSE 88; RESP 18; O2SAT 100
== END 2022-01-09 05:45 | disposition home or self-care (01) ==
PROVIDERS: Emergency Provider Emergency Medicine
DX: S09.90XA Unspecified injury of head, initial encounter (principal); N39.0 Urinary tract infection, site not specified; Y04.2XXA Assault by strike against or bumped into by another person, initial encounter; F31.9 Bipolar disorder, unspecified; F60.3 Borderline personality disorder; F41.9 Anxiety disorder, unspecified; F41.0 Panic disorder [episodic paroxysmal anxiety]
CPT/HCPCS: 81001; 81025; 87077; 87086; 87186; 99283

== ENCOUNTER 2022-05-30 15:54 | Emergency (ER) | payer MEDICARE, MEDICAID, SELFPAY ==
[2022-05-30 16:03] VITALS: BP 157/79; PULSE 105; RESP 16; TEMP 37.2; O2SAT 100
--- NOTE | 2022-05-30 16:04 | ED.GENADULT ---
HPI - General Adult General Chief complaint: Urogenital-Female Stated complaint: possible uti Source: patient and RN notes reviewed History of Present Illness HPI narrative: 21-year-old female presents to urgent care with complaints of urinary frequency and urgency x1 week. Patient states she was seen at her doctor's office a few days ago and was told she did not have a UTI. Patient denies any fevers, chills, vomiting, pain chest pain shortness of breath. Patient does report fullness in her pelvis. Denies any vaginal discharge. Patient states her last menstrual period was April 16, 2022 and is curious if she is . Some parts of this dictation were generated by voice recognition software and may contain typographical and/or grammatical inaccuracies. Related Data Home Medications Medication Instructions Recorded Confirmed bupropion HCl 300 mg 24 hr tablet, mg PO 05/30/22 extended release ergocalciferol (vitamin D2) 1,250 05/30/22 mcg (50,000 unit) capsule hydroxyzine HCl 25 mg tablet mg 05/30/22 levothyroxine 75 mcg tablet mcg 05/30/22 lithium carbonate 450 mg mg PO 05/30/22 tablet,extended release omeprazole 40 mg capsule,delayed mg 05/30/22 release ondansetron HCl 4 mg tablet mg 05/30/22 vitamin with calcium tablet 05/30/22 no.72-iron 27 mg-folic acid 1 mg tablet (WesTab Plus) Allergies Allergy/AdvReac Type Severity Reaction Status Date / Time latex Allergy Mild Hives Verified 05/30/22 16:06 cinnamon Allergy Swelling Verified 05/30/22 16:06 of Lip/Tongue/Throat acetaminophen [From [place]] AdvReac Mild Nausea and Verified 05/30/22 16:06 Vomiting amoxicillin AdvReac Mild Nausea and Verified 05/30/22 16:06 Vomiting grape flavor AdvReac Mild Nausea and Verified 05/30/22 16:06 Vomiting hydrocodone [From [place]] AdvReac Mild Nausea and Verified 05/30/22 16:06 Vomiting adhesive tape AdvReac Hives Verified 05/30/22 16:06 albuterol AdvReac Anaphylaxis Verified 05/30/22 16:06 banana AdvReac Anaphylaxis Verified 05/30/22 16:06 prochlorperazine AdvReac Anxiety Verified 01/09/22 04:18 [From Compazine] Review of Systems Review of Systems: CONSTITUTIONAL: Denies fever, chills, or sweats. EYES: Denies visual changes, redness, or discharge. ENT: Denies otalgia and sore throat CARDIOVASCULAR: Denies chest pain, palpitations, or edema. RESPIRATORY: Denies cough or dyspnea. GASTROINTESTINAL: Denies abdominal pain, nausea, vomiting, or diarrhea. GENITOURINARY: Reports urinary frequency and urgency SKIN: Denies rash or itching. MUSCULOSKELETAL: Denies back pain, joint pain, or myalgia. NEUROLOGIC: Denies headache, numbness, or weakness. [facility] Past Medical History Medical History Anxiety Bipolar disorder Borderline personality disorder COVID-14 January 2020 Depression Deviated septum Panic disorder Surgical History Surgical History Hx of tonsillectomy No significant past surgical history Family History Family History Father Schizophrenia Mother Bipolar disorder Social History Social History Smoking status: Never smoker Alcohol intake: never Substance use: never Living arrangements: alone Occupation/Education: occupation Additional occupation/education comments: works at [employer] Gender identity (if verbalized by the patient): Female Sexual Orientation (if Verbalized by the Patient): Straight or Heterosexual Spiritual care concerns: No Comments At the time of my signature, I reviewed and agree with the nursing past medical, surgical, social, and family history. There is no relevant family history pertinent to the patient complaint. Exam Narrative: GENERAL:
== END 2022-05-30 16:35 | disposition home or self-care (01) ==
PROVIDERS: Emergency Provider Nurse Practitioner Family
DX: O23.40 Unspecified infection of urinary tract in pregnancy, unspecified trimester (principal); N39.0 Urinary tract infection, site not specified; Z86.16 Personal history of COVID-19
CPT/HCPCS: 81003; 81025; 87086; 87088; 99213; G0463

== ENCOUNTER 2022-07-05 11:59 | Emergency (ER) | payer MEDICARE, MEDICAID, SELFPAY ==
[2022-07-05 12:12] VITALS: BP 126/65; PULSE 108; RESP 16; TEMP 36.4; O2SAT 100
--- NOTE | 2022-07-05 12:17 | PC.NURSE ---
Is 8 weeks
--- NOTE | 2022-07-05 12:51 | ED.UPPEXIN ---
HPI - Extremity Injury (Upper) General Chief Complaint: Extremity Injury, Upper Stated Complaint: Right pointer finger injury Time Seen by Provider: 07/05/22 12:51 History of Present Illness HPI narrative: Patient states she was playing pool and injured her right pointer finger on the pool table. No visible bruising no swelling full range of motion to finger. Patient is also and denies any -related issues. Related Data Home Medications Medication Instructions Recorded Confirmed bupropion HCl 300 mg 24 hr tablet, mg PO 05/30/22 extended release ergocalciferol (vitamin D2) 1,250 05/30/22 mcg (50,000 unit) capsule hydroxyzine HCl 25 mg tablet mg 05/30/22 levothyroxine 75 mcg tablet mcg 05/30/22 omeprazole 40 mg capsule,delayed mg 05/30/22 release ondansetron HCl 4 mg tablet mg 05/30/22 vitamin with calcium tablet 05/30/22 no.72-iron 27 mg-folic acid 1 mg tablet (WesTab Plus) Seroquel 07/05/22 Allergies Allergy/AdvReac Type Severity Reaction Status Date / Time latex Allergy Mild Hives Verified 05/30/22 16:06 cinnamon Allergy Swelling Verified 05/30/22 16:06 of Lip/Tongue/Throat acetaminophen [From [place]] AdvReac Mild Nausea and Verified 05/30/22 16:06 Vomiting amoxicillin AdvReac Mild Nausea and Verified 05/30/22 16:06 Vomiting grape flavor AdvReac Mild Nausea and Verified 05/30/22 16:06 Vomiting hydrocodone [From [place]] AdvReac Mild Nausea and Verified 05/30/22 16:06 Vomiting adhesive tape AdvReac Hives Verified 05/30/22 16:06 albuterol AdvReac Anaphylaxis Verified 05/30/22 16:06 banana AdvReac Anaphylaxis Verified 05/30/22 16:06 prochlorperazine AdvReac Anxiety Verified 01/09/22 04:18 [From Compazine] Review of Systems Review of Systems: CONSTITUTIONAL: Denies fever, chills, or sweats. EYES: Denies visual changes, redness, or discharge. ENT: Denies rhinorrhea, congestion, sore throat, or otalgia. CARDIOVASCULAR: Denies chest pain, palpitations, or edema. RESPIRATORY: Denies cough or dyspnea. GASTROINTESTINAL: Denies abdominal pain, nausea, vomiting, or diarrhea. GENITOURINARY: Denies dysuria or hematuria. SKIN: Denies rash or itching. MUSCULOSKELETAL: Denies back pain, joint pain, or myalgia. NEUROLOGIC: Denies headache, numbness, or weakness. PSYCHIATRIC: Denies anxiety or depression. [facility] Past Medical History Medical History Anxiety Bipolar disorder Borderline personality disorder COVID-14 January 2020 Depression Deviated septum Panic disorder Surgical History Surgical History Hx of tonsillectomy No significant past surgical history Family History Family History Father Schizophrenia Mother Bipolar disorder Social History Social History Smoking status: Never smoker Alcohol intake: never Substance use: never Living arrangements: alone Occupation/Education: occupation Additional occupation/education comments: works at [employer] Gender identity (if verbalized by the patient): Female Sexual Orientation (if Verbalized by the Patient): Straight or Heterosexual Spiritual care concerns: No Exam Narrative: GENERAL: Well-appearing, well-nourished, and in no acute distress. HEAD: Normocephalic, atraumatic. EYES: PERRLA and EOMI. ENT: Nares clear, no rhinorrhea or epistaxis. Mucous membranes moist. NECK: Supple. CHEST: Clear to auscultation. No respiratory distress. HEART: Regular rate and rhythm. No murmur heard. Normal peripheral pulses. ABDOMEN: Soft, nontender, nondistended, normal active bowel sounds. EXTREMITIES: Normal range of motion. No edema.HAND EXAM - Skin intact, no laceration, no swelling, no erythema, normal digit cascade with flexio
== END 2022-07-05 13:04 | disposition home or self-care (01) ==
PROVIDERS: Emergency Provider Nurse Practitioner Family; PCP Family Medicine
DX: O9A.219 Injury, poisoning and certain other consequences of external causes complicating pregnancy, unspecified trimester (principal); S63.610A Unspecified sprain of right index finger, initial encounter; Z3A.00 Weeks of gestation of pregnancy not specified; X58.XXXA Exposure to other specified factors, initial encounter; Z86.16 Personal history of COVID-19
CPT/HCPCS: 29130; 99213; G0463

== ENCOUNTER 2022-08-11 18:20 | Emergency (ER) | payer MEDICARE, MEDICAID, SELFPAY ==
--- NOTE | 2022-08-11 18:24 | ED.ABDPAIN ---
HPI - Abdominal Pain General Chief Complaint: Abdominal Pain Stated Complaint: Abdominal Pain Time Seen by Provider: 08/11/22 18:25 Source: patient and RN notes reviewed History of Present Illness HPI narrative: Patient is a 21-year-old female presents to urgent care with complaints of lower abdominal intermittent cramping. Patient states that she is 14 weeks and has seen her identity management consultant. States that she has gone a few different times and whenever they check her urine they ?tell her she has a slight infection but does not treat it?. Patient denies any dysuria, nausea, vomiting. States that when she made a bowel movement earlier today she had ?jelly sac in her stool and flushed down the toilet?. Patient denies any blood in the stool. No other acute complaints. No acute distress noted. Patient aware of the plan of care. Some parts of this dictation were generated by voice recognition software and may contain typographical and/or grammatical inaccuracies. Related Data Home Medications Medication Instructions Recorded Confirmed bupropion HCl 300 mg 24 hr tablet, mg PO 05/30/22 extended release ergocalciferol (vitamin D2) 1,250 05/30/22 mcg (50,000 unit) capsule hydroxyzine HCl 25 mg tablet mg 05/30/22 levothyroxine 75 mcg tablet mcg 05/30/22 omeprazole 40 mg capsule,delayed mg 05/30/22 release ondansetron HCl 4 mg tablet mg 05/30/22 vitamin with calcium tablet 05/30/22 no.72-iron 27 mg-folic acid 1 mg tablet (WesTab Plus) Seroquel 07/05/22 Allergies Allergy/AdvReac Type Severity Reaction Status Date / Time latex Allergy Mild Hives Verified 08/11/22 18:41 cinnamon Allergy Swelling Verified 08/11/22 18:41 of Lip/Tongue/Throat acetaminophen [From [place]] AdvReac Mild Nausea and Verified 08/11/22 18:41 Vomiting amoxicillin AdvReac Mild Nausea and Verified 08/11/22 18:41 Vomiting grape flavor AdvReac Mild Nausea and Verified 08/11/22 18:41 Vomiting hydrocodone [From [place]] AdvReac Mild Nausea and Verified 08/11/22 18:41 Vomiting adhesive tape AdvReac Hives Verified 08/11/22 18:41 albuterol AdvReac Anaphylaxis Verified 08/11/22 18:41 banana AdvReac Anaphylaxis Verified 08/11/22 18:41 prochlorperazine AdvReac Anxiety Verified 08/11/22 18:41 [From Compazine] Review of Systems Review of Systems: CONSTITUTIONAL: Denies fever, chills, or sweats. EYES: Denies visual changes, redness, or discharge. ENT: Denies rhinorrhea, congestion, sore throat, or otalgia. CARDIOVASCULAR: Denies chest pain, palpitations, or edema. RESPIRATORY: Denies cough or dyspnea. GASTROINTESTINAL: Reports of intermittent lower abdominal cramping GENITOURINARY: Denies dysuria or hematuria. SKIN: Denies rash or itching. MUSCULOSKELETAL: Denies back pain, joint pain, or myalgia. NEUROLOGIC: Denies headache, numbness, or weakness. All other systems reviewed are negative, except as documented in HPI. [facility] Past Medical History Medical History Anxiety Bipolar disorder Borderline personality disorder COVID-14 January 2020 Depression Deviated septum Panic disorder Surgical History Surgical History Hx of tonsillectomy No significant past surgical history Family History Family History Father Schizophrenia Mother Bipolar disorder Social History Social History Smoking status: Never smoker Alcohol intake: never Substance use: never Living arrangements: alone Occupation/Education: occupation Additional occupation/education comments: works at [employer] Gender identity (if verbalized by the patient): Female Sexual Orientation (if Verbalized by the Patient): Straight or Heterosexual Spiritual care concerns: No
[2022-08-11 18:38] VITALS: BP 125/64; PULSE 99; RESP 18; TEMP 36.9; O2SAT 100
[2022-08-11 18:43] VITALS: BP 125/64; PULSE 99; RESP 18; TEMP 36.9; O2SAT 100
== END 2022-08-11 19:20 | disposition home or self-care (01) ==
PROVIDERS: Emergency Provider Nurse Practitioner Family
DX: N39.0 Urinary tract infection, site not specified (principal); F41.9 Anxiety disorder, unspecified; F32.A Depression, unspecified; F41.0 Panic disorder [episodic paroxysmal anxiety]; Z86.16 Personal history of COVID-19
CPT/HCPCS: 81003; 87086; 87088; 99213; G0463

== ENCOUNTER 2022-08-20 12:37 | Emergency (ER) | payer MEDICARE, MEDICAID, SELFPAY ==
[2022-08-20 12:44] VITALS: BP 136/66; PULSE 114; RESP 16; TEMP 36.4; O2SAT 99
--- NOTE | 2022-08-20 13:09 | ED.SKABFB ---
HPI - Skin/Abscess/Foreign Bdy General Chief complaint: Allergic Reaction Stated complaint: Allergic Reaction/ Time Seen by Provider: 08/20/22 13:00 Source: patient and RN notes reviewed Mode of arrival: ambulatory Limitations: no limitations History of Present Illness HPI narrative: Patient presents today complaining of a severely pruritic rash to her shoulders, chest, bilateral groin, and right face that started late last night. She took a dose of Benadryl at 2:00 a.m. and 6:00 a.m., but none since then. She denies shortness of breath, difficulty swallowing, swelling of her lips, tongue, or face. States she took MiraLax for the 1st time since she was very little yesterday and believes this may be the culprit, or some poly erythema foam packing that she touched while putting up a crib. She is known to be allergic to polyurethane foam. Patient is currently 15 weeks . Her OBGYN told her to come in to urgent care for possible steroids. Related Data Home Medications Medication Instructions Recorded Confirmed bupropion HCl 300 mg 24 hr tablet, 300 mg PO DAILY 05/30/22 08/20/22 extended release levothyroxine 75 mcg tablet 75 mcg PO DAILY 05/30/22 08/20/22 omeprazole 40 mg capsule,delayed 40 mg PO DAILY 05/30/22 08/20/22 release ondansetron HCl 4 mg tablet 4 mg PO Q8-10H PRN Nausea 05/30/22 08/20/22 vitamin with calcium 1 tablet PO DAILY 05/30/22 08/20/22 no.72-iron 27 mg-folic acid 1 mg tablet (WesTab Plus) quetiapine 200 mg tablet 200 mg PO HS 08/20/22 08/20/22 Allergies Allergy/AdvReac Type Severity Reaction Status Date / Time cinnamon Allergy Severe Swelling Verified 08/20/22 13:03 of Lip/Tongue/Throat latex Allergy Mild Hives Verified 08/20/22 12:46 albuterol AdvReac Severe Anaphylaxis Verified 08/20/22 13:03 banana AdvReac Severe Anaphylaxis Verified 08/20/22 13:03 acetaminophen [From [place]] AdvReac Mild Nausea and Verified 08/20/22 12:46 Vomiting adhesive tape AdvReac Mild Hives Verified 08/20/22 13:03 amoxicillin AdvReac Mild Nausea and Verified 08/20/22 12:46 Vomiting grape flavor AdvReac Mild Nausea and Verified 08/20/22 12:46 Vomiting hydrocodone [From [place]] AdvReac Mild Nausea and Verified 08/20/22 12:46 Vomiting prochlorperazine AdvReac Mild Anxiety Verified 08/20/22 13:03 [From Compazine] Review of Systems Review of Systems: GENERAL: Denies fever, chills, or decreased activity. EYES: Denies any eye discharge or redness. ENT: Denies sore throat, ear pain, congestion, or rhinorrhea. RESP: Denies any cough, wheezing, or difficulty breathing. CARDIOVASCULAR: Denies any rapid heart rate or cool extremities. ABDOMINAL: Denies any constipation, vomiting, diarrhea, or decreased food intake. : Denies any hematuria, foul smelling urine, or decreased urine frequency. SKIN: Denies any lesions, bruises.+ rash MUSCULOSKELETAL: Denies any pain or swelling. NEURO: Denies any lethargy, irritability, or seizures. PSYCH: Denies abnormal interaction with family and friends. FOR[facility]LY [facility] Past Medical History Medical History Anxiety Bipolar disorder Borderline personality disorder COVID-14 January 2020 Depression Deviated septum Panic disorder Surgical History Surgical History Hx of tonsillectomy No significant past surgical history Family History Family History Father Schizophrenia Mother Bipolar disorder Social History Social History Smoking status: Never smoker Alcohol intake: never Substance use: never Living arrangements: alone Occupation/Education: occupation Additional occupation/education comments: works at [employer] Gender identity (if verbalized by the patient): Female Sexual
== END 2022-08-20 13:19 | disposition home or self-care (01) ==
PROVIDERS: Emergency Provider Nurse Practitioner
DX: O99.712 Diseases of the skin and subcutaneous tissue complicating pregnancy, second trimester (principal); Z3A.15 15 weeks gestation of pregnancy; L50.9 Urticaria, unspecified; O99.342 Other mental disorders complicating pregnancy, second trimester; F41.9 Anxiety disorder, unspecified; F31.9 Bipolar disorder, unspecified; Z86.16 Personal history of COVID-19
CPT/HCPCS: 99213; G0463

== ENCOUNTER 2022-09-20 14:57 | Emergency (ER) | payer MEDICARE, MEDICAID, SELFPAY ==
[2022-09-20 15:02] VITALS: BP 133/78; PULSE 110; RESP 16; TEMP 37.2; O2SAT 100
[2022-09-20 15:12] VITALS: BP 133/78; PULSE 110; RESP 16; TEMP 37.2; O2SAT 100
--- NOTE | 2022-09-20 15:17 | ED.EAR ---
HPI - Ear Problem General Chief complaint: Ear Stated complaint: Ear Pain Source: patient, family and RN notes reviewed History of Present Illness HPI Narrative: 22 yo F presents to urgent care with visitor at side. Pt states she has been having left sided ear pain, intermittently, for the last 3 days. Pt states it started after stabbing her ear with a Q-tip 3 days ago. Pt states when the pain occurs, it is stabbing in nature. Denies any fevers, chills, congestion, sore throat, or drainage from the ear. Related Data Home Medications Medication Instructions Recorded Confirmed bupropion HCl 300 mg 24 hr tablet, 300 mg PO DAILY 05/30/22 09/20/22 extended release levothyroxine 75 mcg tablet 75 mcg PO DAILY 05/30/22 09/20/22 omeprazole 40 mg capsule,delayed 40 mg PO DAILY 05/30/22 09/20/22 release ondansetron HCl 4 mg tablet 4 mg PO Q8-10H PRN Nausea 05/30/22 09/20/22 vitamin with calcium 1 tablet PO DAILY 05/30/22 09/20/22 no.72-iron 27 mg-folic acid 1 mg tablet (WesTab Plus) quetiapine 200 mg tablet 200 mg PO HS 08/20/22 09/20/22 Allergies Allergy/AdvReac Type Severity Reaction Status Date / Time cinnamon Allergy Severe Swelling Verified 09/20/22 15:08 of Lip/Tongue/Throat latex Allergy Mild Hives Verified 09/20/22 15:08 albuterol AdvReac Severe Anaphylaxis Verified 09/20/22 15:08 banana AdvReac Severe Anaphylaxis Verified 09/20/22 15:08 adhesive tape AdvReac Mild Hives Verified 09/20/22 15:08 amoxicillin AdvReac Mild Nausea and Verified 09/20/22 15:08 Vomiting grape flavor AdvReac Mild Nausea and Verified 09/20/22 15:08 Vomiting hydrocodone [From [place]] AdvReac Mild Nausea and Verified 09/20/22 15:08 Vomiting prochlorperazine AdvReac Mild Anxiety Verified 09/20/22 15:08 [From Compazine] Review of Systems Review of Systems: CONSTITUTIONAL: Denies fever, chills, or sweats. EYES: Denies visual changes, redness, or discharge. ENT: Left ear pain CARDIOVASCULAR: Denies chest pain, palpitations, or edema. RESPIRATORY: Denies cough or dyspnea. GASTROINTESTINAL: Denies abdominal pain, nausea, vomiting, or diarrhea. GENITOURINARY: Denies dysuria or hematuria. SKIN: Denies rash or itching. MUSCULOSKELETAL: Denies back pain, joint pain, or myalgia. NEUROLOGIC: Denies headache, numbness, or weakness. Pertinent positives per HPI. PMFSH Past Medical History Medical History Anxiety Bipolar disorder Borderline personality disorder COVID-14 January 2020 Depression Deviated septum Panic disorder Surgical History Surgical History Hx of tonsillectomy No significant past surgical history Family History Family History Father Schizophrenia Mother Bipolar disorder Social History Social History Smoking status: Never smoker Alcohol intake: never Substance use: never Living arrangements: alone Occupation/Education: occupation Additional occupation/education comments: works at [employer] Gender identity (if verbalized by the patient): Female Sexual Orientation (if Verbalized by the Patient): Straight or Heterosexual Spiritual care concerns: No Comments At the time of my signature, I reviewed and agree with the nursing past medical, surgical, social, and family history. There is no relevant family history pertinent to the patient complaint. Exam Narrative: GENERAL: This is a well-nourished, well-developed patient, in no apparent distress. HEAD: normocephalic, atraumatic. EYES: PERRL. Sclera clear/white. Vision is grossly intact. EARS: External ears normal, auditory canals clear and without drainage, TMs normal without perforation. Hearing grossly intact. NOSE: External nose normal with no obvious n
== END 2022-09-20 15:25 | disposition home or self-care (01) ==
PROVIDERS: Emergency Provider Nurse Practitioner Family
DX: H92.02 Otalgia, left ear (principal); F41.9 Anxiety disorder, unspecified; F41.0 Panic disorder [episodic paroxysmal anxiety]; F32.A Depression, unspecified; Z86.16 Personal history of COVID-19
CPT/HCPCS: 99213; G0463

== ENCOUNTER 2023-02-11 09:59 | Emergency (ER) | payer MEDICARE, SELFPAY ==
[2023-02-11 10:14] VITALS: BP 130/73; PULSE 85; RESP 20; TEMP 37.2; O2SAT 100
--- NOTE | 2023-02-11 10:15 | ED.EAR ---
HPI - Ear Problem General Chief complaint: Ear Stated complaint: Ear Pain Source: patient and RN notes reviewed History of Present Illness HPI Narrative: 22 yo F presents to urgent care with complaints of left sided muffled hearing. Pt states this has been going on for 8 days. Pt reports being 6 days post . Pt states the right ear is starting to have some muffled hearing as well. Denies any ear pain, fevers, chills, congestion, sore throat, or other symptoms. Related Data Home Medications Medication Instructions Recorded Confirmed bupropion HCl 300 mg 24 hr tablet, 300 mg PO DAILY 05/30/22 02/11/23 extended release levothyroxine 75 mcg tablet 75 mcg PO DAILY 05/30/22 02/11/23 omeprazole 40 mg capsule,delayed 40 mg PO DAILY 05/30/22 02/11/23 release ondansetron HCl 4 mg tablet 4 mg PO Q8-10H PRN Nausea 05/30/22 02/11/23 vitamin with calcium 1 tablet PO DAILY 05/30/22 02/11/23 no.72-iron 27 mg-folic acid 1 mg tablet (WesTab Plus) quetiapine 200 mg tablet 150 mg PO HS 08/20/22 02/11/23 carbamazepine 200 mg tablet 200 mg PO BID 02/11/23 02/11/23 lithium carbonate 300 mg tablet 900 mg PO HS 02/11/23 02/11/23 Allergies Allergy/AdvReac Type Severity Reaction Status Date / Time cinnamon Allergy Severe Swelling Verified 02/11/23 10:16 of Lip/Tongue/Throat latex Allergy Mild Hives Verified 02/11/23 10:16 albuterol AdvReac Severe Anaphylaxis Verified 02/11/23 10:16 banana AdvReac Severe Anaphylaxis Verified 02/11/23 10:16 adhesive tape AdvReac Mild Hives Verified 02/11/23 10:16 amoxicillin AdvReac Mild Nausea and Verified 02/11/23 10:16 Vomiting grape flavor AdvReac Mild Nausea and Verified 02/11/23 10:16 Vomiting hydrocodone [From [place]] AdvReac Mild Nausea and Verified 02/11/23 10:16 Vomiting prochlorperazine AdvReac Mild Anxiety Verified 02/11/23 10:16 [From Compazine] Review of Systems Review of Systems: CONSTITUTIONAL: Denies fever, chills, or sweats. EYES: Denies visual changes, redness, or discharge. ENT: Left sided muffled hearing, a little on the right. No pain. CARDIOVASCULAR: Denies chest pain, palpitations, or edema. RESPIRATORY: Denies cough or dyspnea. GASTROINTESTINAL: Denies abdominal pain, nausea, vomiting, or diarrhea. GENITOURINARY: Denies dysuria or hematuria. SKIN: Denies rash or itching. MUSCULOSKELETAL: Denies back pain, joint pain, or myalgia. NEUROLOGIC: Denies headache, numbness, or weakness. Pertinent positives per HPI. [facility] Past Medical History Medical History Anxiety Bipolar disorder Borderline personality disorder COVID-14 January 2020 Depression Deviated septum Panic disorder Surgical History Surgical History Hx of tonsillectomy No significant past surgical history Family History Family History Father Schizophrenia Mother Bipolar disorder Social History Social History Smoking status: Never smoker Alcohol intake: never Substance use: never Living arrangements: alone Occupation/Education: occupation Additional occupation/education comments: works at [employer] Gender identity (if verbalized by the patient): Female Sexual Orientation (if Verbalized by the Patient): Straight or Heterosexual Spiritual care concerns: No Comments At the time of my signature, I reviewed and agree with the nursing past medical, surgical, social, and family history. There is no relevant family history pertinent to the patient complaint. Exam Narrative: GENERAL: This is a well-nourished, well-developed patient, in no apparent distress. HEAD: normocephalic, atraumatic. EYES: Sclera clear/white. Vision is grossly intact. EARS: External ears normal, auditory canals clear
[2023-02-11 10:27] VITALS: BP 130/73; PULSE 85; RESP 20; TEMP 37.2; O2SAT 100
== END 2023-02-11 10:30 | disposition home or self-care (01) ==
PROVIDERS: Emergency Provider Nurse Practitioner Family; PCP Nurse Practitioner Family
DX: H65.02 Acute serous otitis media, left ear (principal); F41.9 Anxiety disorder, unspecified; F31.9 Bipolar disorder, unspecified; Z86.16 Personal history of COVID-19; F41.0 Panic disorder [episodic paroxysmal anxiety]
CPT/HCPCS: 99213; G0463

== ENCOUNTER 2023-11-12 12:51 | Outpatient (CLI) | payer MEDICARE, MEDICAID, SELFPAY ==
[2023-11-12 13:57] LABS: Alanine Aminotransferase 13 U/L (6-35); Albumin Level 4.5 g/dL (3.5-5.1); Alkaline Phosphatase 99 U/L (38-126); Anion Gap 6 mmol/L (4-12); Aspartate Amino Transferase 19 U/L (14-36); Bilirubin,Total 0.3 mg/dL (0.2-1.3); Blood Urea Nitrogen 8 mg/dL (7-17); Calcium 9.7 mg/dL (8.4-10.2); Carbon Dioxide 30 mmol/L (22-30); Chloride 104 mmol/L (98-107); Estimated Glomerular Filt Rate > 60; Glucose 90 mg/dL (65-110); Sodium 140 mmol/L (137-145)
== END 2023-11-12 12:52 | disposition home or self-care (01) ==
PROVIDERS: PCP Nurse Practitioner Family; Visit Provider Nurse Practitioner Family
DX: F41.1 Generalized anxiety disorder (principal); Z79.899 Other long term (current) drug therapy
CPT/HCPCS: 36415; 80053

== ENCOUNTER 2023-11-27 18:34 | Emergency (ER) | payer MEDICARE, MEDICAID, SELFPAY ==
[2023-11-27 18:44] VITALS: BP 138/58; PULSE 71; RESP 16; TEMP 37.2; O2SAT 100
--- NOTE | 2023-11-27 19:13 | ED.FEMALEGU ---
HPI - Female Genitourinary General Chief complaint: Urogenital-Female Stated complaint: Urinary Problem Time Seen by Provider: 11/27/23 19:00 Source: patient, RN notes reviewed and old records reviewed Mode of arrival: ambulatory Limitations: no limitations History of Present Illness HPI Narrative: 23 year old female who presents to express care with complaints of urinary frequency and urgency since yesterday with reported history of past UTI's. Patient reports that she is on her menses at this time, denies any concern for STD's. Patient reports that she has not been sexually active since June. Patient denies any fevers, chills suprapubic pain or any CVA tenderness. Patient reports that she was suppose to have her gall bladder removed today at [facility] but just didn't show up admits to some upper abdomen discomfort on right side. MD elicited complaint: UTI Pertinent past history: other (previous UTI's) Onset (ago): day(s) (day 2 of symptoms) Severity scale (1-10): 3 Vaginal discharge: none Vaginal bleeding: moderate (on menses) Treatment prior to arrival: none Related Data Home Medications Medication Instructions Recorded Confirmed bupropion HCl 300 mg 24 hr tablet, 300 mg PO DAILY 05/30/22 11/27/23 extended release levothyroxine 75 mcg tablet 75 mcg PO DAILY 05/30/22 11/27/23 omeprazole 40 mg capsule,delayed 40 mg PO DAILY 05/30/22 11/27/23 release carbamazepine 200 mg tablet 200 mg PO BID 02/11/23 11/27/23 lithium carbonate 300 mg 300 mg PO DAILY 11/27/23 11/27/23 tablet,extended release lithium carbonate 450 mg 450 mg PO DAILY 11/27/23 11/27/23 tablet,extended release lumateperone 10.5 mg capsule 10.5 mg PO DAILY 11/27/23 11/27/23 (Caplyta) propranolol 20 mg tablet 20 mg PO DAILY 11/27/23 11/27/23 Allergies Allergy/AdvReac Type Severity Reaction Status Date / Time cinnamon Allergy Severe Swelling Verified 11/27/23 19:05 of Lip/Tongue/Throat latex Allergy Mild Hives Verified 11/27/23 19:05 albuterol AdvReac Severe Anaphylaxis Verified 11/27/23 19:05 banana AdvReac Severe Anaphylaxis Verified 11/27/23 19:05 adhesive tape AdvReac Mild Hives Verified 11/27/23 19:05 amoxicillin AdvReac Mild Nausea and Verified 11/27/23 19:05 Vomiting grape flavor AdvReac Mild Nausea and Verified 11/27/23 19:05 Vomiting hydrocodone [From [place]] AdvReac Mild Nausea and Verified 11/27/23 19:05 Vomiting prochlorperazine AdvReac Mild Anxiety Verified 11/27/23 19:05 [From Compazine] Review of Systems Review of Systems: CONSTITUTIONAL: Denies fever, chills, or sweats. CARDIOVASCULAR: Denies chest pain, palpitations, or edema. RESPIRATORY: Denies cough or dyspnea. GASTROINTESTINAL: Denies abdominal pain, nausea, vomiting, or diarrhea. GENITOURINARY: Reports no burning with urination reports frequency, urgency. Denies flank pain , patient is on her menses SKIN: Denies rash or itching. MUSCULOSKELETAL: Denies back pain or myalgia. Denies CVA tenderness NEUROLOGIC: Denies headache, positive for history of bipolar disease PTSD on numerous psychiatric medications. All systems reviewed & are unremarkable except as noted in HPI and below PMFSH Past Medical History Medical History Anxiety Bipolar disorder Borderline personality disorder COVID-14 January 2020 Depression Deviated septum Panic disorder Surgical History Surgical History Hx of tonsillectomy No significant past surgical history Family History Family History Father Schizophrenia Mother Bipolar disorder Social History Social History Smoking status: Never smoker Alcohol intake: never Substance use: never Living arrangements: alone Occupation/Education: occupation Additional occupation/educ
[2023-11-27 19:43] LABS: EDUAAPPEAR Clear; EDUABILI Negative; EDUABLOOD 3+; EDUACOLOR1 Pink; EDUAGLUCOSE Negative; EDUAKETONE Negative; EDUALEUKO Trace; EDUANITRATE Negative; EDUAPH 7.5; EDUAPROTEIN Negative; EDUAUROBILI 0.2
== END 2023-11-27 19:31 | disposition home or self-care (01) ==
PROVIDERS: Emergency Provider Registered Nurse; PCP Nurse Practitioner Family
DX: N39.0 Urinary tract infection, site not specified (principal); F41.9 Anxiety disorder, unspecified; F31.9 Bipolar disorder, unspecified
CPT/HCPCS: 81003; 87086; 87088; 99213; G0463

== ENCOUNTER 2024-03-31 09:08 | Emergency (ER) | payer MEDICARE, MEDICAID, SELFPAY ==
[2024-03-31 09:12] VITALS: BP 121/64; PULSE 83; RESP 18; TEMP 36.4; O2SAT 100
--- NOTE | 2024-03-31 09:50 | ED_ITS ---
HPI - Ear Problem General Chief complaint: Ear Stated complaint: Left ear ringing Time Seen by Provider: 03/31/24 09:30 Source: patient, RN notes reviewed and old records reviewed Mode of arrival: ambulatory Limitations: no limitations History of Present Illness HPI Narrative: 23 year old female who presents to [facility] care with complaints of left ear feeling full and having some bubbling sensation to her ear along with some sinus drainage. Patient reports no drainage from her left ear or any fevers. Patient reports that she has some sinus drainage but denies any sore throat or any acute sinus pressure or headache pain Patient recently completed Cefdinir which was ordered 03/18/2024fr 10days for a left ear infection. MD Complaint: ear pain and other (ear ringing) Location: left ear Related Data Home Medications Medication Instructions Recorded Confirmed bupropion HCl 300 mg 24 hr tablet, 300 mg PO DAILY 05/30/22 03/31/24 extended release levothyroxine 75 mcg tablet 75 mcg PO DAILY 05/30/22 03/31/24 omeprazole 40 mg capsule,delayed 40 mg PO DAILY 05/30/22 03/31/24 release carbamazepine 200 mg tablet 200 mg PO BID 02/11/23 03/31/24 lithium carbonate 300 mg 300 mg PO DAILY 11/27/23 03/31/24 tablet,extended release lithium carbonate 450 mg 450 mg PO DAILY 11/27/23 03/31/24 tablet,extended release lumateperone 10.5 mg capsule 10.5 mg PO DAILY 11/27/23 03/31/24 (Caplyta) propranolol 20 mg tablet 20 mg PO DAILY 11/27/23 03/31/24 Allergies Allergy/AdvReac Type Severity Reaction Status Date / Time cinnamon Allergy Severe Swelling Verified 03/31/24 09:35 of Lip/Tongue/Throat latex Allergy Mild Hives Verified 03/31/24 09:35 albuterol AdvReac Severe Anaphylaxis Verified 03/31/24 09:35 banana AdvReac Severe Anaphylaxis Verified 03/31/24 09:35 adhesive tape AdvReac Mild Hives Verified 03/31/24 09:35 amoxicillin AdvReac Mild Nausea and Verified 03/31/24 09:35 Vomiting grape flavor AdvReac Mild Nausea and Verified 03/31/24 09:35 Vomiting hydrocodone [From [place]] AdvReac Mild Nausea and Verified 03/31/24 09:35 Vomiting prochlorperazine AdvReac Mild Anxiety Verified 03/31/24 09:35 [From Compazine] Review of Systems Review of Systems: CONSTITUTIONAL: Denies malaise, chills, sweats, or fever. EYES: Denies visual changes, redness, or discharge. ENT: Reports rhinorrhea, congestion,no sinus pain,left otalgia and no sore throat. CARDIOVASCULAR: Denies chest pain, palpitations, or edema. RESPIRATORY: Reports no cough.? Denies dyspnea. GASTROINTESTINAL: Denies abdominal pain, nausea, vomiting, diarrhea SKIN: Denies rash or itching. MUSCULOSKELETAL: Denies myalgia. NEUROLOGIC: Denies headache. All systems reviewed & are unremarkable except as noted in HPI and below PMFSH Past Medical History Medical History (Updated 03/31/24 @ 10:01 by Radha Sanchez NP) Anxiety Bipolar disorder Borderline personality disorder COVID-14 January 2020 Depression Deviated septum Panic disorder Surgical History Surgical History (Updated 03/31/24 @ 14:45 by Radha Sanchez NP) H/O nasal septoplasty Hx of tonsillectomy No significant past surgical history Family History Family History Father Schizophrenia Mother Bipolar disorder Social History Social History Smoking status: Never smoker Alcohol intake: never Substance use: never Living arrangements: alone Occupation/Education: occupation Additional occupation/education comments: works at [employer] Gender identity (if verbalized by the patient): Female Sexual Orientation (if Verbalized by the Patient): Straight or Heterosexual Spiritual care concerns: No Comments At time of signature, agree with nursing past medical, surgical, social and family history. There is no relevant family history pertinent to the presenting complaint Exam Narrative: GENERAL: Well-appearing, well-nourished, and in no acute distress. HEAD: Normocephalic EYES: PERRLA, conjunctivae clear ENT: Nares clear, turbinates edematous and erythematous, clear discharge. Mucous membranes moist.Left TM dull and bulging, Right TM pearly steele with dull light reflex; no tragal tenderness. Oropharynx erythematous without lesions. Tonsils not present and throat without exudate, no drooling, no hoarseness, no trismus, uvula midline.post nasal drainage noted NECK: Supple. No lymphadenopathy CHEST: Clear to auscultation, breath sounds equal. No wheezing, rhonchi, rales, or stridor. No respiratory distress, speaks in full sentences.SAO2 100% on room air HEART: Regular rate and rhythm. No murmur heard. SKIN: Warm, dry, no rash. NEURO: Alert and oriented x3. PSYCH: Normal mood and affect Course Course Emergency Course: Patient is aware of diagnosis, understands and agrees to treatment plan.? Anticipatory guidance given.? Patient agrees to follow-up as directed and is aware of reasons to seek care at the emergency department. Portions of this record may have been created with voice recognition software Level of Care: Express Care Visit Vital Signs Vital signs: Vital Signs Temperature 36.4 C L 03/31/24 09:12 Pulse Rate 83 03/31/24 09:12 Respiratory Rate 18 03/31/24 09:12 Blood Pressure 121/64 03/31/24 09:12 Pulse Oximetry 100 03/31/24 09:12 Oxygen Delivery Room Air 03/31/24 09:12 Temperature 36.4 C L 03/31/24 09:12 Pulse Rate 83 03/31/24 09:12 Respiratory Rate 18 03/31/24 09:12 Blood Pressure 121/64 03/31/24 09:12 Pulse Oximetry 100 03/31/24 09:12 Oxygen Delivery Room Air 03/31/24 09:12 Reviewed Medical Decision Making Differential Diagnosis Differential Diagnosis: otitis media,otitis externa, URI, cerumen impaction, eustachian tube dysfunction Medical Records Medical records reviewed: Yes I reviewed the external patient's medical records. Vital Signs Vital Signs: Vital Signs Temperature 36.4 C L 03/31/24 09:12 Pulse Rate 83 03/31/24 09:12 Respiratory Rate 18 03/31/24 09:12 Blood Pressure 121/64 03/31/24 09:12 Pulse Oximetry 100 03/31/24 09:12 Oxygen Delivery Room Air 03/31/24 09:12 Temperature 36.4 C L 03/31/24 09:12 Pulse Rate 83 03/31/24 09:12 Respiratory Rate 18 03/31/24 09:12 Blood Pressure 121/64 03/31/24 09:12 Pulse Oximetry 100 03/31/24 09:12 Oxygen Delivery Room Air 03/31/24 09:12 reviewed Critical Care Time Critical Care Time Critical Care Time: No Discharge Plan Discharge Clinical Impression: Dysfunction of left eustachian tube Patient Disposition: Home, Self-Care Condition: Stable Instructions: Barotrauma (ED) Additional Instructions: Increase fluids especially juices and water [id number] cough and cold medicine of your choice for your symptoms Zyrtec Claritin or Reva daily Steroids as directed--take with food heat to the face 20-30 minutes 4-6 times a day for pain Salt water gargles, throat lozenges or throat sprays as desired If your symptoms persist, change or worsen significantly before you can contact your personal physician then please, without delay, go to the emergency department for further evaluation. Follow-up with PCP in 7-10 days or sooner if needed Prescriptions: New methylprednisolone [Medrol ([place])] 4 mg tablets,dose pack See Rx Instructions .ROUTE .COMPLEX Qty: 21 0RF Rx Instructions: orally per package directions loratadine [Claritin] 10 mg tablet 10 mg PO DAILY Qty: 30 0RF No Action omeprazole 40 mg capsule,delayed release(DR/EC) 40 mg PO DAILY levothyroxine 75 mcg tablet 75 mcg PO DAILY bupropion HCl 300 mg tablet extended release 24 hr 300 mg PO DAILY carbamazepine 200 mg tablet 200 mg PO BID fluticasone propionate [24 Hour Allergy Relief] 50 mcg/actuation spray,suspension 1 spray intranasal BID Qty: 16 0RF Rx Instructions: administer into each nostril propranolol 20 mg tablet 20 mg PO DAILY Caplyta 10.5 mg capsule 10.5 mg PO DAILY lithium carbonate 300 mg Tablet Extended Release 300 mg PO DAILY lithium carbonate 450 mg Tablet Extended Release 450 mg PO DAILY Follow-up/Referrals: Danna,Jenni Herron APN [Primary Care Provider] - Time of Disposition: 10:03 Quality [place] Coma Scale Eyes: Open Verbal: Oriented and Alert Motor: Follows Commands Mariajose Coma Total Score: 15
== END 2024-03-31 10:05 | disposition home or self-care (01) ==
PROVIDERS: Emergency Provider Registered Nurse; PCP Nurse Practitioner Family
DX: H69.82 Other specified disorders of Eustachian tube, left ear (principal); F41.8 Other specified anxiety disorders; F31.9 Bipolar disorder, unspecified
CPT/HCPCS: 99213; G0463

== ENCOUNTER 2024-06-06 15:39 | Emergency (ER) | payer OTHER, SELFPAY ==
--- OUTSIDE RECORDS SUMMARY | 2024-06-06 15:41 | XMS_ITS | Referral Summary ---
Author Organization [facility] [employer] Address [address] [place] [address] Care Team Providers Care Breeder Hen Service Technician Name Role Phone Unknown, Provider Primary Care Provider Unavaila ble Source Comments [facility],non-owned Affiliates and Associated Physician Practices is amultiple site organization consisting of ambulatory clinics and hospital sitesin [place], [place], [place] and [place]. This disclosure is being madepursuant to the Care Everywhere program and may not contain all information available regarding this patient. Last updated 18.[facility] [employer] Allergies Active Allergy Reactions Criticality Noted Date Comments Acetaminophen-Melatonin Palpitations Low 06/20/2022 Albuterol Anaphylaxis High 02/25/2021 Amoxicillin Vomiting 02/25/2021 Cinnamon Anaphylaxis High 02/25/2021 Diphenhydramine Unknown 03/06/2021 Fish Allergy Vomiting 03/06/2021 Grape, Artificial Vomiting 02/25/2021 Hydrocodone-Acetaminophen Nausea and/or Vomiting,Vomiting 01/22/2016 Latex Itching,Urticaria Medium 06/24/2019 Proanthocyanidin Unknown 09/26/2022 Promethazine Itching 12/03/2022 Vanilla Anaphylaxis High 04/13/2023 Wound Dressing Adhesive Urticaria Medium 06/20/2022 Medications * Be aware that medications may not be up to date on this document. Alwaysverify current medications with the patient. Medication Sig Dispensed Refills Start Date End Date Status buPROPion SR 12hr (WELLBUTRIN-SR) 100 MG tablet TAKE 1 TABLET BY MOUTH EVERY MORNING WITH BREAKFAST 09/06/2021 Active carBAMazepine (TEGRETOL) 200 MG tablet Take 200 mg by mouth 2 times daily 09/06/2021 Active vitamin D, ergocalciferol, (DRISDOL) 1.25 MG (57057 UT) capsule Take 50,000 Units by mouth every 7 days 09/06/2021 Active hydrOXYzine pamoate (VISTARIL) 25 MG capsule TAKE 1 CAPSULE BY MOUTH FOUR TIMES DAILY NEEDED 07/13/2021 Active ibuprofen (MOTRIN) 800 MG tablet Take 800 mg by mouth every 6 hours as needed pain 04/05/2021 Active lithium CR (ESKALITH CR) 450 MG tablet Take 450 mg by mouth 2 times daily 09/06/2021 Active naproxen (NAPROSYN) 500 MG tablet Take 500 mg by mouth 2 times daily as needed For pain. 06/28/2021 Active ondansetron (ZOFRAN) 4 MG tablet TAKE 1 TABLET BY MOUTH EVERY 6 HOURS NEEDED FOR NAUSEA OR VOMITING 06/02/2021 Active propranolol (INDERAL) 10 MG tablet Take 10 mg by mouth 2 times daily 09/06/2021 Active sertraline (ZOLOFT) 100 MG tablet Take 100 mg by mouth once daily 08/19/2021 Active ziprasidone (GEODON) 60 MG capsule Take 60 mg by mouth 2 times daily 08/19/2021 Active albuterol HFA (PROVENTIL; VENTOLIN; PROAIR) 108 (90 Base) MCG/ACT inhaler Take 2 puffs by mouth every 4 hours 03/05/2021 Active LESSINA-28 0.1-20 MG-MCG tablet Take 1 (one) tablet by mouth once daily 03/23/2023 Active levothyroxine (Synthroid) 75 MCG tablet Take 1 (one) tablet by mouth once daily 04/03/2023 Active ondansetron, disintegrating, (Zofran ODT) 4 MG tablet DISSOLVE 1 TABLET ON THE TONGUE EVERY 8 HOURS NEEDED FOR NAUSEA 04/03/2023 Active pantoprazole EC (Protonix) 40 MG tablet Take 1 (one) tablet by mouth once daily 03/23/2023 Active QUEtiapine XR 24hr (SEROquel XR) 150 MG tablet Take 1 (one) tablet by mouth every evening 04/02/2023 Active Active Problems Problem Noted Date Diagnosed Date Convergence insufficiency 09/10/2021 Bipolar disease, chronic 09/10/2021 Deviated septum 09/10/2021 Social History Tobacco Use Types Packs/Day Years Used Date Smoking Tobacco: Never Smokeless Tobacco: Never Sex and Gender Information Value Date Recorded Sex Assigned at Not on file Gender Identity Not on file Sexual Orientation Not on file Last Filed Vital Signs Vital Sign Reading Time Taken Comments Blood Pressure 130/60 06/24/2019 3:19 PM CONCRETE BOOM PUMP OPERATOR Pulse 121 06/24/2019 3:19 PM CONCRETE BOOM PUMP OPERATOR Temperature 35.9 C (96.7 F) 06/24/2019 3:19 PM CONCRETE BOOM PUMP OPERATOR Respiratory Rate - - Oxygen Saturation 97% 06/24/2019 3:19 PM CONCRETE BOOM PUMP OPERATOR Inhaled Oxygen Concentration - - Weight 87.5 kg (193 lb) 06/24/2019 3:19 PM CONCRETE BOOM PUMP OPERATOR Height 160 cm (5' 3 ) 06/24/2019 3:19 PM CONCRETE BOOM PUMP OPERATOR Body Mass Index 34.19 06/24/2019 3:19 PM CONCRETE BOOM PUMP OPERATOR Plan of Treatment Not on file Care Teams Breeder Hen Service Technician Relationship Specialty Start Date End Date Unknown, Provider PCP - General 03/30/23
--- OUTSIDE RECORDS SUMMARY | 2024-06-06 15:41 | XMS_ITS ---
Author Organization [facility] [employer] Address [facility] [address] [address] Care Team Providers Care Watch Supervisor Name Role Phone Garcia, Jospeh Unavailable [phone] REASON FOR VISIT f/u bipolar d/o Social History Sex Assigned At : Social History Observation Description Sex Assigned At Female Encounters Encounter Location Date Provider Diagnosis [facility] [employer] [address] [address] 01/22/2024 Joseph Garcia Plan Of Treatment No Information Progress Notes * PAUL LAMAS MDOB: 1 (23 yo F)Acc No.[id number]:01/22/2024 Patient: A PAUL COMER Provider: TRAVIS GUTIERREZ :2000 A ge:23 Y S ex:Female Date:01/22/2024 Address:[address] [place] [address] [place], [place] [id number] Subjective: * Chief Complaints: * F /u bipolar d/o * Medical History: * Surgical History: * Hospitalization/Major Diagno stic Procedure: * Medications: Objective: * Vitals: Assessment: Plan: * Treatment: * Procedure Codes: * Billing Information: * Visit Code: * Procedure Codes: * GRADER Sign off status: Completed true * Provider: TRAVIS GUTIERREZ Date: 0 01/22/2024 Generated for Amber duval/Terrell/Javieritting on: 0 06/06/2024 03:41 PM TILE GRADER
--- OUTSIDE RECORDS SUMMARY | 2024-06-06 15:41 | XMS_ITS | Clinical Summary ---
Author Organization [facility] Address [address] [place] [address] Phone Care Team Providers Care In Flight Technician Name Role Phone ANANTH SELLERS DO Unavailable [phone] Reason for Visit and Chief Complaint TELEHEALTH Problems Includes: Problems addressed during this encounter and other active Problems All Visits Onset Date Resolved Date Provider Condition S tatus Bipolar Disorder Affective, Current Episode Depressed, Moderate 03/11/2023 KRISHNA Ange MOUSER PMHNP Active Last Documented On 3 8:35AM ; [facility] 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, Mood-congruent 03/11/2023 KRISHNA Ange MOUSE R PMHNP Active Last Documented On 3 8:35AM ; [facility] Generalized Anxiety Disorder 03/11/2023 KRISHNA E MOUSER PMHNP Active Last Documented On 3 8:35AM ; [facility] Chronic Post-traumatic Stress Disorder 03/11/2023 KRISHNA E MOUSER PMHNP Active Last Documented On 3 8:35AM ; [facility] Plan of Treatment No Plan of Treatment Recorded Assessments Includes: Assessments from this encounter No Assessments Recorded Medical Equipment - Implanted Devices Includes: Current Devices No Medical Equipment Recorded Medications Administered Includes: Administered Medications from this encounter No Administered Medications Recorded Results Includes: Results discussed during this encounter No Results Recorded For Specified Dates History of Present Illness Includes: History of Present Illness from this encounter No History of Present Illness Recorded Social History No Social History Recorded - Smoking Status Unknown Medical History Includes: Medical History addressed during this encounter No Medical History Recorded Family History Includes: Family History addressed during this encounter No Family History Recorded Review of Systems Includes: Review of Systems from this encounter No Review of Systems Recorded Mental Status Includes: Mental Status from this encounter No Mental Status Recorded Functional Status Includes: Functional Status from this encounter No Functional Status Recorded Physical Exam Includes: Physical Exam from this encounter No Physical Exam Recorded Allergies Includes: Active Allergies Substance Type Reaction Onset Date Resolved Date Statu s Tylenol Allergy 03/01/2023 Active Last Documented On 4 10:11AM ; [facility] TORADOL Allergy 03/01/2023 Active Last Documented On 4 10:11AM ; [facility] Melatonin Allergy 03/01/2023 Active Last Documented On 4 10:11AM ; [facility] Latex Allergy 10/12/2019 Active Last Documented On 4 10:11AM ; [facility] Inapsine Allergy 03/01/2023 Active Last Documented On 4 10:11AM ; [facility] HYDROcodone-Acetaminophen Allergy 03/01/2023 Active Last Documented On 4 10:11AM ; [facility] COMPAZINE Allergy 03/01/2023 Active Last Documented On 4 10:11AM ; [facility] Augmentin Allergy sick to stomach 10/20/2019 Act flor Last Documented On 4 10:11AM ; [facility] Amoxicillin Allergy 03/01/2023 Active Last Documented On 4 10:11AM ; [facility] Albuterol Allergy 03/01/2023 Active Last Documented On 4 10:11AM ; [facility] Adhesive Paper Allergy 03/01/2023 Acti ve Last Documented On 4 10:11AM ; [facility] Insurance Includes: Active Insurance Policies Plan Name Member ID Group # Subscriber Relationship Effect flor Dates 1 - MEDICARE PART A CLAIMS/NGS [id number] PAUL Guzman 2 - MEDICAID [place] MEDICARE SECOND [id number] PAUL Guzman Clinical Notes Includes: Clinical Notes from this encounter No Clinical Notes Recorded
--- OUTSIDE RECORDS SUMMARY | 2024-06-06 15:41 | XMS_ITS | Clinical Summary ---
Author Organization [facility] Address [address] [place] [address] Care Team Providers Care Strip Machine Tender Name Role Phone Unknown, Provider Primary Care Provider Unavaila ble Source Comments [facility],non-owned Affiliates and Associated Physician Practices is amultiple site organization consisting of ambulatory clinics and hospital sitesin [place], [place], [place] and [place]. This disclosure is being madepursuant to the Care Everywhere program and may not contain all information available regarding this patient. Last updated 18.[facility] Allergies Active Allergy Reactions Criticality Noted Date [...] Active vitamin D, ergocalciferol, (DRISDOL) 1.25 MG (38252 UT) capsule Take 50,000 Units by mouth [...] Bipolar disease, chronic 09/10/2021 Deviated septum 09/10/2021 Family History Medical History Relation Name Comments Schizophrenia Father Bipolar Disorder Mother Blindness Neg Hx Glaucoma Neg Hx Macular Degeneration Neg Hx Relation Name Status Comments Father Mother Social History Tobacco Use Types Packs/Day Years Used Date Smoking Tobacco: Never Smokeless Tobacco: Never Sex and Gender Information Value Date Recorded Sex Assigned at Not on file Gender Identity Not on file Sexual Orientation Not on file Last Filed Vital Signs Vital Sign Reading Time Taken Comments Blood Pressure 130/60 06/24/2019 3:19 PM INVESTMENT UNDERWRITER Pulse 121 06/24/2019 3:19 PM INVESTMENT UNDERWRITER Temperature 35.9 C (96.7 F) 06/24/2019 3:19 PM INVESTMENT UNDERWRITER Respiratory Rate - - Oxygen Saturation 97% 06/24/2019 3:19 PM INVESTMENT UNDERWRITER Inhaled Oxygen Concentration - - Weight 87.5 kg (193 lb) 06/24/2019 3:19 PM INVESTMENT UNDERWRITER Height 160 cm (5' 3 ) 06/24/2019 3:19 PM INVESTMENT UNDERWRITER Body Mass Index 34.19 06/24/2019 3:19 PM INVESTMENT UNDERWRITER Plan of Treatment Health Maintenance Due Date Last Done Comments MEDICARE AWV 12 MONTHS 2000 HIV SCREENING 09/21/2015 HPV VACCINE (1 - 3-dose series) 09/21/2015 CHLAMYDIA/GONORRHEA SCREENING 2016 MENINGOCOCCAL (Group B) VACC INE (1 of 2 - Standard) 2016 HEPATITIS C SCREENING 09/16/2018 DTAP/TDAP/TD VACCINES (1 - Tdap) 09/21/2019 HEPATITIS B VACCINE (1 of 3 - 19+ 3-dose series) 09/21/2019 COVID-19 VACCINE (1 - 2023-2 5 season) 2023 INFLUENZA VACCINE (#1) 2023 PAP SMEAR 06/20/2025 06/20/2022 ZOSTER VACCINE (1 of 2) 2050 HIB VACCINE Aged Out No longer eligi ble based on patient's age to complete this topic MENINGOCOCCAL VACCINE Aged Out No jose luis joshua eligible based on patient's age to complete this topic PNEUMOCOCCAL VACCINE Aged Out No long er eligible based on patient's age to complete this topic Care Teams Strip Machine Tender Relationship Specialty Start Date End Date Unknown, Provider PCP - General 03/30/23
--- OUTSIDE RECORDS SUMMARY | 2024-06-06 15:41 | XMS_ITS ---
Care Plan - [facility] Created on: June 06, 2024 PAUL LAMAS : 2000 Sex: Female Author Organization [facility] Address [address] [place] [address] Phone Care Team Providers Care Well Servicing Rig Operator Name Role Phone ANANTH SELLERS DO Unavailable [phone]
--- OUTSIDE RECORDS SUMMARY | 2024-06-06 15:41 | XMS_ITS | Patient Health Summary ---
Author Organization [facility] Address [address] [place] [address] Care Team Providers Care Punch Machine Hand Name Role Phone Unknown, Provider Primary Care Provider Unavaila ble Note from [facility],non-owned Affiliates and Associated Physician Practices is amultiple site organization consisting of ambulatory clinics and hospital sitesin [place], [place], [place] and [place]. This disclosure is being madepursuant to the Care Everywhere program and may not contain all information available regarding this patient. Last updated 18.[facility] Allergies * Acetaminophen-Melatonin(Palpitations) -Low Criticality * Albuterol(Anaphylaxis) -High Criticality * Amoxicillin(Vomiting) * Cinnamon(Anaphylaxis) -High Criticality * Diphenhydramine(Unknown) * Fish Allergy(Vomiting) * Grape, Artificial(Vomiting) * Hydrocodone-Acetaminophen(Nausea and/or Vomiting,Vomiting) * Latex(Itching,Urticaria) -Medium Criticality * Proanthocyanidin(Unknown) * Promethazine(Itching) * Vanilla(Anaphylaxis) -High Criticality * Wound Dressing Adhesive(Urticaria) -Medium Criticality Medications * Be aware that medications may not be up to date on this document. Alwaysverify current medications with the patient. * buPROPion SR 12hr (WELLBUTRIN-SR) 100 MG tablet(Started 09/06/2021) TAKE 1 TABLET BY MOUTH EVERY MORNING WITH BREAKFAST * carBAMazepine (TEGRETOL) 200 MG tablet(Started 09/06/2021) Take 200 mg by mouth 2 times daily * vitamin D, ergocalciferol, (DRISDOL) 1.25 MG (91166 UT) capsule(Started 09/06/2021) Take 50,000 Units by mouth every 7 days * hydrOXYzine pamoate (VISTARIL) 25 MG capsule(Started 07/13/2021) TAKE 1 CAPSULE BY MOUTH FOUR TIMES DAILY NEEDED * ibuprofen (MOTRIN) 800 MG tablet(Started 04/05/2021) Take 800 mg by mouth every 6 hours as needed pain * lithium CR (ESKALITH CR) 450 MG tablet(Started 09/06/2021) Take 450 mg by mouth 2 times daily * naproxen (NAPROSYN) 500 MG tablet(Started 06/28/2021) Take 500 mg by mouth 2 times daily as needed For pain. * ondansetron (ZOFRAN) 4 MG tablet(Started 06/02/2021) TAKE 1 TABLET BY MOUTH EVERY 6 HOURS NEEDED FOR NAUSEA OR VOMITING * propranolol (INDERAL) 10 MG tablet(Started 09/06/2021) Take 10 mg by mouth 2 times daily * sertraline (ZOLOFT) 100 MG tablet(Started 08/19/2021) Take 100 mg by mouth once daily * ziprasidone (GEODON) 60 MG capsule(Started 08/19/2021) Take 60 mg by mouth 2 times daily * albuterol HFA (PROVENTIL; VENTOLIN; PROAIR) 108 (90 Base) MCG/ACT inhaler (Started 03/05/2021) Take 2 puffs by mouth every 4 hours * LESSINA-28 0.1-20 MG-MCG tablet(Started 03/23/2023) Take 1 (one) tablet by mouth once daily * levothyroxine (Synthroid) 75 MCG tablet(Started 04/03/2023) Take 1 (one) tablet by mouth once daily * ondansetron, disintegrating, (Zofran ODT) 4 MG tablet(Started 04/03/2023) DISSOLVE 1 TABLET ON THE TONGUE EVERY 8 HOURS NEEDED FOR NAUSEA * pantoprazole EC (Protonix) 40 MG tablet(Started 03/23/2023) Take 1 (one) tablet by mouth once daily * QUEtiapine XR 24hr (SEROquel XR) 150 MG tablet(Started 04/02/2023) Take 1 (one) tablet by mouth every evening Active Problems Problem Noted Date Diagnosed Date [...] Comments Blood Pressure 130/60 06/24/2019 3:19 PM WASH BARREL LEADER Pulse 121 06/24/2019 3:19 PM WASH BARREL LEADER Temperature 35.9 C (96.7 F) 06/24/2019 3:19 PM WASH BARREL LEADER Respiratory Rate - - Oxygen Saturation 97% 06/24/2019 3:19 PM WASH BARREL LEADER Inhaled Oxygen Concentration - - Weight 87.5 kg (193 lb) 06/24/2019 3:19 PM WASH BARREL LEADER Height 160 cm (5' 3 ) 06/24/2019 3:19 PM WASH BARREL LEADER Body Mass Index 34.19 06/24/2019 3:19 PM WASH BARREL LEADER Procedures * OPH OCT TEST [facility](Performed 08/12/2022) Performed for Convergence insufficiency, Refraction/accommodation disorder * OPH CORNEAL TOPOGRAPHY TEST [facility](Performed 08/12/2022) Performed for Convergence insufficiency Results * OCT (08/12/2022 1:41 PM CDT) Anatomical Region Laterality Modality Other 08/12/2022 1:41 PM CDT Baron Arriaga MD OPHTHALMOLOGY SERVIC ES ORDERABLES * Corneal Topography (08/12/2022 1:20 PM CDT) Anatomical Region Laterality Modality Other 08/12/2022 1:20 PM CDT Baron Arriaga MD OPHTHALMOLOGY SERVIC ES ORDERABLES Care Teams Punch Machine Hand Relationship Specialty Start Date End Date Unknown, Provider PCP - General 03/30/23
--- OUTSIDE RECORDS SUMMARY | 2024-06-06 15:42 | XMS_ITS | Patient Health Record ---
Author Organization [facility] Address [address] [place] [address] Care Team Providers Care Grading Supervisor Name Role Phone Yamilet Antonietta Primary Care Provider [phone] Allergies Allergen (clinical drug ingredient) Drug/Non Drug Allergy documented on EMR Reaction Allergy Type Onset Date Status artifical flavoring (uncoded) Unknown Allergy Active Seafood seafood (uncoded) Unknown Allergy Ac tive cinnamon bark Cinnamon Unknown Drug Allergy Act flor acetaminophen Tylenol Unknown Drug Allergy Act flor Compazine Unknown Drug Allergy Active banana allergenic extract Banana (Diagnostic) Unknown Drug Allergy Active Adhesive Unknown Allergy Active albuterol Albuterol Unknown Drug Allergy Active amoxicillin Amoxicillin Unknown Drug Allergy Act flor droperidol Droperidol Unknown Drug Allergy Activ e hydrocodone Hydrocodone Unknown Drug Allergy Act flor ketorolac Ketorolac Unknown Drug Allergy Active Latex Latex Unknown Allergy Active melatonin Melatonin Unknown Drug Allergy Active Reason For Referral No Information Medications Medication SIG (Take, Route, Frequency, Duration) Notes Start Date End Date Status SEROquel 200 MG 1 tablet at bedtime Orally Once a day for 30 days Active SEROquel 25 MG 1 tablet as needed Orally Once a day for 7 days Active WesTab One 2.5-25-1 MG 1 tablet Orally O nce a day Active Zofran ODT 4mg as needed Activ e Levothyroxine Sodium 75 MCG 1 capsule in the morning on an empty stomach Orally Once a day Active Omeprazole 40 MG 1 capsule 30 minutes before morning meal Orally Twice daily Active buPROPion HCl ER (XL) 300 MG 1 tablet in the morning Orally Once a day for 30 days Active Social History Sex Assigned At : Social History Observation Description Sex Assigned At Female Problems Problem Type SNOMED Code ICD Code Onset Dates Problem Status W/U Status Risk Notes Problem Borderline personality disorder (90691289) Borderline personality disorder (F60.3) Active confirmed Problem Bipolar 1 disorder (616150264) Bipolar 1 disorder (F31.9) Active confirmed Plan Of Treatment No Information Insurance Providers Payer Name Payer Address Payer Phone Subscriber Number Group Number Insured Name Patient Relationship to Insured Coverage Start Date Coverage End Date MEDICARE PART A [address] [place] [phone] [id number] Jo Marin Self - patient is the insured 1 MEDICAID [address] [place] [address] [id number] Jo Marin Self - patient is the insured 1 Medical (General) History Surgical History Surgery Date(Month/Year) tonsillectomy and adenoidectomy septoplasty Hospitalization History Reason Date(Month/Year) Multiple hospitalizations in the past. [place]
--- OUTSIDE RECORDS SUMMARY | 2024-06-06 15:42 | XMS_ITS | Clinical Summary ---
Author Organization [facility] Address [address] [place] [address] Care Team Providers Care Psychological Operations Specialist Name Role Phone No, Physician Primary Care Provider [phone] Piper Stephen MD Unavailable Allergies Active Allergy Reactions Criticality Noted Date Comments Acetaminophen-Melatonin Other (See comments) Low 06/20/2022 Adhesive Hives,Unknown Medium 06/20/2022 Adhesive Tape-Silicones Hives Medium 06/20/2022 Albuterol Anaphylaxis,Unknown High 02/25/2021 Patient states anaphylaxis. Amoxicillin Nausea & Vomiting,Unknown Low 02/23/2021 Banana Unknown 09/26/2022 Cinnamon Anaphylaxis,Unknown High 02/25/2021 Docusate Sodium Unknown 02/06/2023 Patient states she is allergic Droperidol Agitation,Anxiety,M ental status changes,Unknown Low 07/25/2022 Fish Containing Products Vomiting Low 03/06/2021 Grape Unknown 09/26/2022 Grape Flavoring Vomiting Low 02/25/2021 Hydrocodone Unknown 09/26/2022 Hydrocodone-Acetaminophen Nausea only,Vomiting Reaction: NAUSEA, VOMITING, Ketorolac Agitation,Anxiety,M ental status changes,Unknown Low 07/25/2022 Latex Hives,Unknown Medium 02/23/2021 Melatonin Unknown 09/26/2022 Prochlorperazine Mental status changes,Agitation,A nxiety,Unknown Low 06/20/2022 Compazine Medications buPROPion XL (WELLBUTRIN XL) 300 mg 24 hr tablet Active omeprazole (PriLOSEC) 40 mg capsule Take 1 capsule (40 mg total) by mouth 2 (two) times a day 05/19/19 Active ondansetron ODT (ZOFRAN-ODT) 4 mg disintegrating tablet DISSOLVE 1 TABLET ON THE TONGUE EVERY 12 HOURS NEEDED FOR NAUSEA 05/13/19 Active WesTab Plus 27 mg iron- 1 mg tablet Take 1 tablet by mouth daily 05/23/19 Active levothyroxine (SYNTHROID) 75 mcg tablet Active QUEtiapine (SEROquel) 200 mg tablet Take 0.5 tablets (100 mg total) by mouth nightly at bedtime 09/20/19 Active no115/iron/folic acid ( 19 ORAL) Take by mouth Active lithium ER (LITHOBID) 300 mg CR tabletIndications: Bipolar Disorder Take 3 tablets (900 mg total) by mouth once nightly Active carBAMazepine XR (TEGretol XR) 200 mg 12 hr tablet Take 1 tablet (200 mg total) by mouth 2 (two) times a day Active acetaminophen (TYLENOL) 325 mg tabletIndications: Pain Take 2 tablets (650 mg total) by mouth every 6 (six) hours as needed for pain 30 tablet 02/07/20 Active ibuprofen (ADVIL,MOTRIN) 600 mg tabletIndications: Cramps,Pain Take 1 tablet (600 mg total) by mouth every 6 (six) hours 90 tablet 02/07/20 Active Additional Information Patient not taking.Reported on 04/16/2023 polyethylene glycol (MIRALAX) 17 gram/dose bulk powderIndications: constipation Take 17 g by mouth daily 238 g 02/07/20 Active Additional Information Patient not taking.Reported on 04/16/2023 levonorgestreL-eth inyl estrad (LUTERA) 0.1-20 mg-mcg per tabletIndications: Contraception Take 1 tablet by mouth daily 84 tablet 3 03/12/20 Active Additional Information Patient not taking.Reported on 04/16/2023 QUEtiapine XR (SEROquel XR) 150 mg 24 hr tablet Take 1 tablet (150 mg total) by mouth daily Active propranoloL (INDERAL) 10 mg tablet Take by mouth 2 (two) times a day as needed 04/02/20 Active Active Problems Problem Noted Date Diagnosed Date Borderline personality disorder (CMS/HCC) 2022 Bipolar affective 06/21/2022 Ankle pain 05/25/2015 Overview (07/31/2016): Ankle pain Resolved Problems Problem Noted Date Diagnosed Date Resolved Date with 39 completed weeks gestation 02/04/2023 03/12/2023 Obesity affecting in first trimester 06/21/2022 03/12/2023 Encounter for supervision of normal first in third trimester 06/20/2022 03/12/2023 Overview (01/21/2023): 1st Trimester: [x] Dating Criteria: 1st [x] Labs: Lab Results Component Value Date HEPBSAG Nonreactive 06/20/2022 HEPCAB Nonreactive 06/20/2022 VZVIGG Nonreactive 07/13/2020 Lab Results Component Value Date [id number] Nonreactive 06/20/2022 Lab Results Component Value Date WBC 9.6 06/20/2022 HGB 12.5 06/20/2022 HCT 39.3 06/20/2022 MCV 90.3 06/20/2022 [x] Blood Type: Lab Results Component Value Date ABORH O Positive 06/11/2022 [x] UCx: negative [x] Pap: last 07/25/22 [x] Genetic Screening: NIPT (after 10 weeks) drawn 07/25/22 Low risk female [x] CF/SMA carrier screening: Horizon panel drawn 07/25/22 Normal [] ASA at 12 weeks: Not indicated [] Early 1h GTT (if BMI>30): 2nd Trimester: [x] Anatomy ultrasound: normal anatomy with EFW 81% [] MSAFP (15-18w) [] echo (if DM, monochorionic) [x] GDM screen (24-28 wks): 10/27/22 61 [x] CBC/T&S:11.4/36 [] Tdap (27-36wks) 3rd Trimester: [] CBC 36 - 37 wks if H/H <10/30 [] Rhogam (if Rh neg) n/a [x] GBS 36-37wks: negative [] EDPS screen: [x] Growth US - serial growth US: EFW 54% (24wks) Counseling [] Contraception [] PP Depression Counseling [] Flu Shot (Dec-Mar): bad reactions in past, does not get typically [] COVID vaccine/booster: recommended not to receive as allergic to one component in vaccine Surgical History Surgery Date Site/Laterality Comments TONSILLECTOMY SEPTOPLASTY Medical History Medical History Date Comments Hx Other Medical Right wrist fx in the past.; Comments: MEJIA 05/08/2015 - Hx Other Medical Left lateral an kle sprain.; Comments: MEJIA 05/28/2015 - Hyperthyroidism Bipolar affective (HCC) Borderline personality disor duane (CMS/HCC) (HCC) 04/21/2023 PTSD (post-traumatic stress disorder) Depressive psychosis ([facility]) Gall stones Family History Medical History Relation Name Comments Other Other Family history of early stroke before age 60, glaucoma and cancer.; Relation Name Status Comments Other Social History Tobacco Use Types Packs/Day Years Used Date Smoking Tobacco: Never Passive Smoke Exposure: Never Smokeless Tobacco: Never AUDIT-C Answer Date Recorded Q1: How often do you have a drink containing alc ohol? Monthly or less 06/20/2022 Average Number of Drinks Not on file 023 Frequency of Binge Drinking Not on file 05/29 [place] Depression Scale Answer Date Recorded [place] Depression Scale Total 26 03/12/2023 The thought of harming myself has occurred to me . Never 03/12/2023 Personal Safety Answer Date Recorded Have you ever been in or are you currently in a harmful physical or emotional relationship or is someone making you feel afraid or unsafe? Denies 12/18/2023 Comments No Sex and Gender Information Value Date Recorded Sex Assigned at Not on file Legal Sex Female 2:48 AM LOG DECKMAN Gender Identity Not on file Sexual Orientation Not on file Obstetrics History Para Term AB IAB SAB Ectopic Multiple Livin g Live Births 1 1 1 0 1 1 Date Outcome GA Total Labor Labor/2nd/3rd Weight Sex Type Anes PTL Samantha A1 A5 Name Clin 2022 Term 39w 2d 2h 03m 1h 33m/0h 30m 3.785 kg (8 lb 5.5 oz) F Vagina l Epidur al N Livin g 3 8 KATHERINE D,GIR LKAYL A Valwa y, Karine ayesha Deven, NURY Complications:Shoulder Dysto phong Delivery Location:This Facil ity ([facility]) Last Filed Vital Signs Vital Sign Reading Time Taken Comments Blood Pressure 122/68 12/18/2023 5:35 AM CDT Pulse 67 12/18/2023 5:35 AM CDT Temperature 36.8 C (98.2 F) 12/18/2023 12:52 AM CDT Respiratory Rate 16 12/18/2023 5:35 AM CDT Oxygen Saturation 100% 12/18/2023 5:35 AM CDT Inhaled Oxygen Concentration - - Weight 88.5 kg (195 lb) 12/18/2023 12:52 AM CDT Height 160 cm (5' 3 ) 12/18/2023 12:52 AM CDT Body Mass Index 34.54 12/18/2023 12:52 AM CDT Plan of Treatment Health Maintenance Due Date Last Done Comments Pneumococcal vaccine <65 (1 of 1 - PPSV23 or PCV20) 2006 04/12/2001, 02/10/2001, 2000 Regular Well Visit/Exam 18-64 2018 DTaP/Tdap/Td Vaccine (7 - Td or Tdap) 10/01/2020 10/01/2010, 10/08/2005, 09/07/2005, Additional history exists Cervical Cancer Screening 06/20/2023 06/20/2022 Chlamydia and Gonorrhea (GC/ CT) Screening 06/20/2023 06/20/2022 Influenza Vaccine (#1) 2023 8, 06/03/2017, 12/10/2015, Additional history exists Depression Screening 03/12/2024 03/12/2023 Hepatitis B Screening Completed 04/12/2001 , 2000, 2000 Varicella Vaccines Completed 11/05/2006, 0 10/20/2001, 09/19/2001 HPV Vaccines Completed 11/01/2013, 1207/2012, 12/03/2012 Meningococcal B Vaccine Completed 07/27/2017, 06/03 Hepatitis C Screening Completed 06/20/2022 , 07/13/2020, 06/12/2020 Procedures Procedure Name Priority Date/Time Associated Diagnosis Comments PAP WITH REFLEX TO HIGH RISK HPV Routine 06/20/2022 3:39 PM LOG DECKMAN Encounter for supervision of normal first in first trimester Encounter for Papanicolaou smear for cervical cancer screening Screening for human papillomavirus (HPV) N. GONORRHOEAE/C. TRACHOMATIS AMPLIFICATION Routine 06/20/2022 3:22 PM LOG DECKMAN Encounter for supervision of normal first in first trimester Screening examination for STD (sexually transmitted disease) HEPATITIS C ANTIBODY Routine 06/20/2022 3:19 PM LOG DECKMAN Encounter for supervision of normal first in first trimester from Last 3 Months or Most Recently Relevant to Health Maintenance Results * Pap with reflex to High Risk HPV (06/20/2022 3:39 PM LOG DECKMAN) Thin prep (Pap test) 06/20/2022 3:39 PM LOG DECKMAN 06/26/2022 1:03 PM LOG DECKMAN Narrative PATHOLOGY [facility] - 06/30/2022 1:29 PM LOG DECKMAN EPIC results best viewed via link to PDF [address] [address] Tele: Barbara Felix MD - [employer] CYTOLOGY REPORT Note to Patients: This report may contain a detailed description of human tissue sent by a health care provider to the laboratory for pathologic evaluation. The content of this report is essential for diagnosis and may provide important critical findings. This information may be unfamiliar to patients to review without a medical professional present. It is advised that the patient review this report in the presence of a health care provider who can answer questions and explain the details. Patient Name: PAUL LAMAS Address: [address] [place] [address] Gender: F : 2000 (Age: 21) Service: Location: [facility] #: [id number] Patient Type: [facility] SPECIMEN Taken: 06/20/2022 Reported: 06/30/2022 Physician(s): Piper Stephen M.D. FINAL DIAGNOSIS: Specimen Type: A. - ThinPrep Pap w/ reflex HPV: Statement of Specimen Adequacy: Source: Cervical/Endocervical - Satisfactory for interpretation - Endocervical /Transformation Zone component present - Case screened using computer assisted imaging technology General Categorization: - Negative for intraepithelial lesion or malignancy jxm/06/30/2022 13:29JuHAM [place] (ASCP) Report Reviewed and Electronically Signed By HAM Ni (ASCP)Clerical Data Follow A; G0145 CLINICAL DIAGNOSIS AND HISTORY Last Menstrual Period: 04/16/22 Menstrual History: REPORT IMAGES AND/OR SCANNED DOCUMENTS ONLY VIEWABLE IN PDF FORMAT The Pap test is a screening test used to aid in the detection of cervical cancer and its precursors. It should not be the sole means by which malignant and premalignant lesions are diagnosed. Both false negative and false positive results may occur. It also has poor sensitivity for the detection of endometrial lesions and should not be used to evaluate suspected endometrial abnormalities. For these reasons it is most important to obtain Pap tests at regular intervals, as recommended by your physician or nurse practitioner. Piper Stephen MD LAB CYTOLOGY ORDERABLES Final Result PATHOLOGY [facility] Laboratory Receiving [address] [place] [address] * N. gonorrhoeae/C. trachomatis Amplification Endocervical (06/20/2022 3:22 PM LOG DECKMAN) C. trachomatis Not Detected Not Detected [facility] N. gonorrhoeae Not Detected Not Detected [facility] Comment: Testing performed by the [facility]. This assay detects Chlamydia trachomatis and Neisseria gonorrhoeae by nucleic acid amplification testing (NAAT). This test is approved by the [place] Food and Drug Administration and the performance characteristics have been verified by the laboratory. The performance characteristics of this test have not been evaluated in women or individuals less than 16 years of age. Endocervical (None) 06/20/19 3:22 PM LOG DECKMAN 06/20/2022 5:50 PM LOG DECKMAN Piper Stephen MD LAB MICROBIOLOGY - GENERAL OR DERABLES Final Result Performing Organization Address [facility] Co de Phone Number [facility] [address] [place] [address] * Hepatitis C antibody (06/20/2022 3:19 PM LOG DECKMAN) Hep C Ab Nonreactive Nonreactive [facility] Comment: Interpretive Data Nonreactive: Antibodies to HCV not detected. Does NOT exclude the possibility of recent exposure to HCV. Equivocal: Equivocal for HCV antibodies. Supplemental molecular testing will be automatically performed to determine infection status in accordance with current CDC screening recommendations. Reactive: Positive for HCV antibodies. This may represent current or past HCV infection. Supplemental molecular testing will be automatically performed to determine current infection status in accordance with current CDC screening recommendations. Interpretive data was last revised on 2019. Blood 06/20/2022 3:19 PM LOG DECKMAN 06/20/2022 6:01 PM LOG DECKMAN Piper Stephen MD LAB MICROBIOLOGY - GENERAL OR DERABLES Edited Result - Final Performing Organization Address [facility] Co de Phone Number [facility] [address] [place] [address] from Last 3 Months or Most Recently Relevant to Health Maintenance Insurance [place] [employer] MEDICARE [id number] MEDICARE IDPR MEDICARE Advance Directives For more information, please contact: [phone] * Full Code (Latest Code Status on File) Date Activated Date Inactivated Comments 02/05/2023 10:05 AM 02/07/2023 3:12 PM * Full Code Date Activated Date Inactivated Comments 02/04/2023 8:28 AM 02/05/2023 10:05 AM Full CPR in case of cardiopulmonary arrest Care Teams Psychological Operations Specialist Relationship Specialty Start Date End Date No, Physician PCP - General 02/24/21 Piper Stephen MD [phone] [address] Consulting Physician Obstetrics and Gynecology 06/10/22
--- OUTSIDE RECORDS SUMMARY | 2024-06-06 15:42 | XMS_ITS | Clinical Summary ---
Author Organization [facility] Address [address] [place] [address] Phone Care Team Providers Care Independent Sales Representative Name Role Phone ANANTH SELLERS DO Unavailable [phone] Reason for Visit and Chief Complaint The Chief Complaint is: sore/swollen throat, runny nose, nausea. sx started yesterday Problems Includes: Problems addressed during this encounter and other active Problems All Visits Onset Date Resolved Date Provider Condition S tatus Bipolar Disorder Affective, Current Episode Depressed, Moderate 03/11/2023 KRISHNA E MOUSER PMHNP Active Last Documented On 3 8:35AM ; [facility] 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, Mood-congruent 03/11/2023 KRISHNA E MOUSE R PMHNP Active Last Documented On 3 8:35AM ; [facility] Generalized Anxiety Disorder 03/11/2023 KRISHNA E MOUSER PMHNP Active Last Documented On 3 8:35AM ; [facility] Chronic Post-traumatic Stress Disorder 03/11/2023 KRISHNA E MOUSER PMHNP Active Last Documented On 3 8:35AM ; [facility] Plan of Treatment - Return to the clinic if condition worsens or new symptoms arise - Last Documented On 08/06/2023 10:29AM ; [facility] - Patient will call for appointment as needed - Last Documented On 08/06/2023 10:29AM ; [facility] Instructions to patient Intervention and counseling on cessation of tobacco use Last Documented On 4 10:11AM ; [facility] Assessments Includes: Assessments from this encounter Findings - [J06.9 - Acute upper respiratory infection, unspecified] Upper respiratory infection - Last Documented On 08/06/2023 10:29AM ; [facility] Instructions Includes: Instructions from this encounter Instructions to patient Intervention and counseling on cessation of tobacco use Last Documented On 4 10:11AM ; [facility] Medical Equipment - Implanted Devices Includes: Current Devices No Medical Equipment Recorded Medications Includes: Medications discussed during this encounter and other current Medications New / Renewed during this visit AMY BROWNLEE DNP on 08/06/2023 guaiFENesin ER 600 MG Oral Tablet Extended Release 12 Hour Provider: AMY Mcallister TRACK RIDER 15 day supply: 30 tablet, 0 refills Diagnosis: Acute upper respiratory infection, unspecified One tablet twice a day PO IA N for congestion Pharmacy: [address], [id number] - Last Documented On 10:42AM By Amy Brownlee DNP ; [facility] Medications Administered Includes: Administered Medications from this encounter No Administered Medications Recorded Vital Signs Includes: Vital Signs from this encounter Vital Name 08/06/2023 10:10A Pulse Rate-Sitting (bpm) 105 Temp-Oral (F) 98.5 Height (in) 63 Weight (lb) 190 Body Mass Index 33.7 Body Surface Area 1.9 Oxygen Saturation (%) 98 Last Documented: On 08/06/2023 10:11A M ; [facility] Results Includes: Results discussed during this encounter No Results Recorded For Specified Dates History of Present Illness Includes: History of Present Illness from this encounter INA LAMAS is a 22 year old female. - Allergy list reviewed - Medication list reviewed - Previously well - No fever - No chills - No sinus pain - No sinus pressure - No swollen glands in the neck - No itching of the eyes - No discharge from the eyes - Nasal discharge - Nasal passage blockage (stuffiness) - Sore throat - No earache - The ears do not feel pressured - The ears do not feel full - No discharge from the ears - No postnasal drip - No sneezing - No itchy throat - No chest pain or discomfort - No palpitations - Cough - Not feeling congested in the chest - No dyspnea - No wheezing - Nausea - No vomiting - No abdominal pain - No diarrhea - No rash Jo presents to the clinic with the above reported symptoms that have been going on since yesterday. She denies any known fever or chills. Patient denies any known sick contacts. Social History Description Last Updated Tobacco non-user 08/06/2023 Last Documented On 4 10:29AM ; [facility] Smoking Status Unknown Procedures and Surgical History Includes: Procedures from this encounter Procedures Code Diagnosis Performing Provider Service L ocation Service Date SARS-CO,SARS-COV-2, INFLUENZA A/B TEST (CLIA WAIVED) 20160 Acute cough AMY BROWNLEE [facility] 08/06/2023 Last Documented On 4 4:46PM ; [facility] STREP TEST SCREENING (CLIA WAIVED) 47282 Acute pharyngitis, unspecified AMY BROWNLEE [facility] 08/06/2023 Last Documented On 4 4:46PM ; [facility] intervention and counseling on cessation of toba accounting intern use 4000F Last Documented On 4 10:11AM ; [facility] use of tobacco assessment performed 1000F Last Documented On 4 10:11AM ; [facility] review of medications documented 1160F Last Documented On 4 10:11AM ; [facility] Clinical summary provided to patient Last Documented On 4 10:26AM ; [facility] Medical History Includes: Medical History addressed during this encounter No Medical History Recorded Family History Includes: Family History addressed during this encounter No Family History Recorded Review of Systems Includes: Review of Systems from this encounter Systemic: Feeling poorly (malaise). No fever and no chills. Head: No headache and no sinus pain. Eyes: No itching of the eyes. Otolaryngeal: No earache. Nasal discharge. No hoarseness. Sore throat. Cardiovascular: No chest pain or discomfort. Pulmonary: No dyspnea. Cough. No wheezing. Gastrointestinal: Nausea. No vomiting and no diarrhea. Skin: No rash. Mental Status Includes: Mental Status from this encounter No Mental Status Recorded Functional Status Includes: Functional Status from this encounter No Functional Status Recorded Physical Exam Includes: Physical Exam from this encounter Allergies Includes: Active Allergies Substance Type Reaction Onset Date Resolved Date Statu s Tylenol Allergy 03/01/2023 Active Last Documented On 4 10:11AM ; [facility] TORADOL Allergy 03/01/2023 Active Last Documented On 4 10:11AM ; [facility] Melatonin Allergy 03/01/2023 Active Last Documented On 4 10:11AM ; [facility] Latex Allergy 10/12/2019 Active Last Documented On 4 10:11AM ; [facility] Inapsine Allergy 03/01/2023 Active Last Documented On 4 10:11AM ; [facility] HYDROcodone-Acetaminophen Allergy 03/01/2023 Active Last Documented On 4 10:11AM ; [facility] COMPAZINE Allergy 03/01/2023 Active Last Documented On 4 10:11AM ; [facility] Augmentin Allergy sick to stomach 10/20/2019 Act flor Last Documented On 4 10:11AM ; [facility] Amoxicillin Allergy 03/01/2023 Active Last Documented On 4 10:11AM ; [facility] Albuterol Allergy 03/01/2023 Active Last Documented On 4 10:11AM ; [facility] Adhesive Paper Allergy 03/01/2023 Acti ve Last Documented On 4 10:11AM ; [facility] Encounters Encounter Provider Location Date Check-In Time Check-Out Time Diagnosis COVID SICK VISIT- ESTABLISHED PATIENT AMY BROWNLEE DNP [facility] 08/06/19 24 9:57AM 10:26AM Upper Respiratory Infection Insurance Includes: Active Insurance Policies Plan Name Member ID Group # Subscriber Relationship Effect flor Dates 1 - MEDICARE PART A CLAIMS/NGS [id number] JO Guzman 2 - MEDICAID OF [place] MEDICARE SECOND [id number] JO Guzman Clinical Notes Includes: Clinical Notes from this encounter * Progress note Date Encounter Last Documented by 08/06/2023 COVID SICK VISIT- ESTABLISHED PA TIENT Last documented on 08/06/2023; 10:29 AM, AMY BROWNLEE DNP; [facility] Chief Complaint The Chief Complaint is: Sore/swollen throat, runny nose, nausea. sx started yesterday. History of Present Illness JO LAMAS is a 22 year old female. - Allergy list reviewed - Medication list reviewed - Previously well - No fever - No chills - No sinus pain - No sinus pressure - No swollen glands in the neck - No itching of the eyes - No discharge from the eyes - Nasal discharge - Nasal passage blockage (stuffiness) - Sore throat - No earache - The ears do not feel pressured - The ears do not feel full - No discharge from the ears - No postnasal drip - No sneezing - No itchy throat - No chest pain or discomfort - No palpitations - Cough - Not feeling congested in the chest - No dyspnea - No wheezing - Nausea - No vomiting - No abdominal pain - No diarrhea - No rash Jo presents to the clinic with the above reported symptoms that have been going on since yesterday. She denies any known fever or chills. Patient denies any known sick contacts. Social History Tobacco use: Tobacco non-user. Review Of Systems Systemic: Feeling poorly (malaise). No fever and no chills. Head: No headache and no sinus pain. Eyes: No itching of the eyes. Otolaryngeal: No earache. Nasal discharge. No hoarseness. Sore throat. Cardiovascular: No chest pain or discomfort. Pulmonary: No dyspnea. Cough. No wheezing. Gastrointestinal: Nausea. No vomiting and no diarrhea. Skin: No rash. Physical Findings - Vitals taken 08/06/2023 10:10 am Pulse Rate-Sitting 105 bpm Temp-Oral 98.5 F Height 63 in Weight 190 lbs Body Mass Index 33.7 kg/m2 Body Surface Area 1.9 m2 Oxygen Saturation 98 % General Appearance: - Alert. - Well nourished. - In no acute distress. Neck: Suppleness: - Neck demonstrated no decrease in suppleness. Eyes: General/bilateral: Pupils: - PERRLA. Ears: General/bilateral: External Auditory Canal: - External auditory meatus normal. Tympanic Membrane: - Normal. Nose: General/bilateral: Discharge: - Nasal discharge. Cavity: - Nasal turbinate swollen. Sinus Tenderness: - No sinus tenderness. Pharynx: Oropharynx: - Normal. - Tonsils showed no abnormalities. - Tonsils were not erythematous. - Tonsils were not enlarged. Mucosal: - Pharynx showed an accumulation of purulent mucous. Lymph Nodes: - Anterior cervical lymph nodes were not enlarged. - Posterior cervical lymph nodes were not enlarged. Lungs: - Normal breath sounds/voice sounds. - No wheezing was heard. - No rhonchi were heard. Cardiovascular: Heart Rate And Rhythm: - Normal. Abdomen: Auscultation: - Bowel sounds were normal. Palpation: - Abdominal non-tender. - No mass was palpated in the abdomen. Skin: - General appearance was normal. - Texture was normal. - Turgor was normal. - Color and pigmentation were normal. - Moisture was normal. - Mucous membranes were not dry. Assessment - [J06.9 - Acute upper respiratory infection, unspecified] Upper respiratory infection Therapy - Intervention and counseling on cessation of tobacco use. - Clinical summary provided to patient. Discussed Testing was negative at today's visit. 1. Increase fluid intake. 2. Rest as much as possible. 3. Encourage use of humidifier- Regularly clean the humidifier so that bacteria does not grow. 4. Encouraged Vitamin C and Zinc to help boost immune system. 5. Cool liquids to soothe the throat, throat sprays, throat lozenges, cool liquids to help soothe the throat. 6. Acetaminophen or ibuprofen as needed for pain/fever. 7. Antihistamine as needed- such as Zyrtec, Claritin, or Benadryl. 8. Normal saline nasal spray or Netti Pot with sterile water as needed. 9. Warm compress to sinus area. 10. Patient voiced understanding to the teaching. Plan StartCited - Acute cough In office procedures/*Clia Waived Labs: SARS COVID-19 + flu A & B test EndCited StartCited - Acute pharyngitis, unspecified In office procedures/*Clia Waived Labs: Rapid Strep Test EndCited StartCited - Acute upper respiratory infection, unspecified guaiFENesin ER 600 MG tablet One tablet twice a day PO PRN for congestion, 15 days, 0 refills EndCited - Return to the clinic if condition worsens or new symptoms arise - Patient will call for appointment as needed Practice Management Use of tobacco assessment performed Review of medications documented.
--- OUTSIDE RECORDS SUMMARY | 2024-06-06 15:42 | XMS_ITS | Encounter Summary ---
Author Organization [facility] Address [address] [place] [address] Phone Care Team Providers Care Leaf Sorter Name Role Phone Kristina Galicia PAC Primary Care Pro vider Rick Gutierrez MD Unavailable [phone] Geraldine Bernabe MD Unavailable [phone] Jenni Clay LAP HAND TOOL, HAND SLITTER Primary Care Provider [phone] Venita Riggins LAP HAND TOOL, HAND SLITTER Unavailable + [phone] Romain Esqueda MD Unavailable Anamika Orozco LAP HAND TOOL, HAND SLITTER Unavailable Reason for Visit * Reason Comments Medication Refill Encounter Details Date Type Department Care Team (Late st Contact Info) Description 04/02/2023 Refill [facility] - Internal Medicine - [place] [address] [place] [id number] Kristina Galicia, PAC [address] [place] [address] Medication Refill Social History Tobacco Use Types Packs/Day Years Used Date Smoking Tobacco: Never Smokeless Tobacco: Never Alcohol Use Standard Drinks/Week Comments Yes 0 (1 standard drink = 0.6 oz pur e alcohol) occasional PHQ-2 Answer Date Recorded Total Score - Questions 1-9 12 06/25 Education Answer Date Recorded What is the highest level of school you have completed or the highest degree you have received? Some college, no degree 07/04/2022 Sexually Active Control Partners Comments Not Currently Comments Yes Sex and Gender Information Value Date Recorded Sex Assigned at Not on file Legal Sex Female 7:14 PM CDT Gender Identity Not on file Sexual Orientation Not on file COVID-19 Exposure Response Date Recorded In the last 10 days, have yo u been in contact with someone who was confirmed or suspected to have Coronavirus/COVID-19? No / Unsure 03/05/2023 10:12 AM FIELD GAUGER documented as of this encounter Miscellaneous Notes * Telephone Encounter - Whitney Mcguire RN - 04/03/2023 8:49 AM CST Medication failed the protocol, provider to review and approve the medication order if appropriate. Requested Prescriptions Pending Prescriptions Disp Refills ondansetron (ZOFRAN-ODT) 4 MG TABLET DISPERSIBLE [Pharmacy Med Name: ONDANSETRON ODT 4MG TABLETS] 30 Tablet 0 Sig: DISSOLVE 1 TABLET ON THE TONGUE EVERY 8 HOURS NEEDED FOR NAUSEA Not Delegated - 5-HT3 Antagonists Protocol Failed - 04/02/2023 5:44 PM Failed - This refill cannot be delegated Passed - Visit with relevant provider in past 12 months or upcoming 90 days Recent Visits Date Type Provider Dept 03/23/23 Office Visit Kristina Galicia PAC [facility] [place] 07/04/22 [facility] [place] Showing recent visits within past 365 days and meeting all other requirements Future Appointments Date Type Provider Dept 06/24/23 Appointment Kristina Galicia PAC [facility] [place] Showing future appointments within next 90 days and meeting all other requirements D GAUGER documented in this encounter Plan of Treatment Upcoming Encounters Date Type Department Care Team (Late st Contact Info) Description 06/10/2024 2:30 PM FIELD GAUGER Office Visit [facility] - Endocrinology [facility] [address] [place] [phone] Lucien Dominguez MD [address] [address] documented as of this encounter Visit Diagnoses Not on filedocumented in this encounter Additional Health Concerns Assessment Noted Time PHQ-9 Depression Total Score: 12 023 3:00 PM FIELD GAUGER documented as of this encounter Care Teams Leaf Sorter Relationship Specialty Start Date End Date Kristina Galicia, [facility] [address] [place] [address] PCP - General Physician It Help Desk Analyst 03/23/23 08/03/23 Jenni Clay APRN, HAND SLITTER [address] [address] PCP - General Family Medicine 08/04/23 Rick Gutierrez MD [address] [place] [phone] Consulting Physician Neurology 05/26/23 Geraldine Bernabe MD [address] [place] [address] Consulting Physician Gastroenterology 03/26/23 Venita Riggins APRN, HAND SLITTER [address] [address] Nurse Practitioner Cardiology 09/29/23 Romain Esqueda MD [address] [phone] Consulting Physician General Surgery 11/12/23 Anamika Orozco APRN, HAND SLITTER [address] [place] [address] Nurse Practitioner Advanced Practice Nurse 12/23/23 documented as of this encounter
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
--- OUTSIDE RECORDS SUMMARY | 2024-06-06 15:42 | XMS_ITS | CCD ---
Author Name Interface, [id number] [address] [facility] [place] [address] Care Team Providers Care Cane Feeder Name Role Phone Interface, [id number] Unavailable Unavail able Reason for Visit Social History
--- OUTSIDE RECORDS SUMMARY | 2024-06-06 15:42 | XMS_ITS | Clinical Summary ---
Author Organization [facility] Address [address] [place] [address] Phone Care Team Providers Care Casting Coordinator Name Role Phone ANANTH SELLERS DO Unavailable [phone] Reason for Visit and Chief Complaint TELEHEALTH Problems Includes: Problems addressed during this encounter and other active Problems All Visits Onset Date Resolved Date Provider Condition S tatus Bipolar Disorder Affective, Current Episode Depressed, Moderate 03/11/2023 KRISHNA Ange MOUSER PMHNP Active Last Documented On 3 8:35AM ; [facility] 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, Mood-congruent 03/11/2023 KRISHNA Ange MOUSE R PMHNP Active Last Documented On 3 8:35AM ; [facility] Generalized Anxiety Disorder 03/11/2023 KRISHNA E MOUSER PMHNP Active Last Documented On 3 8:35AM ; [facility] Chronic Post-traumatic Stress Disorder 03/11/2023 KRISHNA E MOUSER PMHNP Active Last Documented On 3 8:35AM ; [facility] Plan of Treatment No Plan of [...] Active Last Documented On 4 10:11AM ; [facility] TORADOL Allergy 03/01/2023 Active Last Documented On 4 10:11AM ; [facility] Melatonin Allergy 03/01/2023 Active Last Documented On 4 10:11AM ; [facility] Latex Allergy 10/12/2019 Active Last Documented On 4 10:11AM ; [facility] Inapsine Allergy 03/01/2023 Active Last Documented On 4 10:11AM ; [facility] HYDROcodone-Acetaminophen Allergy 03/01/2023 Active Last Documented On 4 10:11AM ; [facility] COMPAZINE Allergy 03/01/2023 Active Last Documented On 4 10:11AM ; [facility] Augmentin Allergy sick to stomach 10/20/2019 Act flor Last Documented On 4 10:11AM ; [facility] Amoxicillin Allergy 03/01/2023 Active Last Documented On 4 10:11AM ; [facility] Albuterol Allergy 03/01/2023 Active Last Documented On 4 10:11AM ; [facility] Adhesive Paper Allergy 03/01/2023 Acti ve Last Documented On 4 10:11AM ; [facility] Insurance Includes: Active Insurance Policies Plan Name Member ID Group # Subscriber Relationship Effect flor Dates 1 - MEDICARE PART A CLAIMS/NGS [id number] PAUL Guzman 2 - [place] MED[place]ARE SECOND [id number] PAUL Guzman Clinical Notes Includes: Clinical Notes from this encounter No Clinical Notes Recorded
--- OUTSIDE RECORDS SUMMARY | 2024-06-06 15:42 | XMS_ITS | Encounter Summary ---
Author Organization [facility] Address [address] [place] [address] Phone Care Team Providers Care Rental Boats Caretaker Name Role Phone Provider, None Primary Care Provider Unavailabl e Kristina Galicia PAC Primary Care Pro vider Provider, Not On File Primary Care Provider Unav ailable Kristina Galicia PAC Primary Care Pro vider Rick Gutierrez MD Unavailable Geraldine Bernabe MD Unavailable [phone] Jenni Clay PACKAGING MACHINE OPERATOR, CYBER OPS PLANNER Primary Care Provider Venita Riggins PACKAGING MACHINE OPERATOR, CYBER OPS PLANNER Unavailable + [phone] Romain Esqueda MD Unavailable [phone] nAamika Orozco PACKAGING MACHINE OPERATOR, CYBER OPS PLANNER Unavailable Reason for Visit * Reason Comments Medication Refill Encounter Details Date Type Department Care Team (Late st Contact Info) Description 07/21/2022 Refill [facility] - Internal Medicine - [place] [address] [place] [address] Kristina Galicia, PAC [address] [place] [address] Medication Refill Social History Tobacco Use Types [...] have received? Some college, no degree 07/04/2022 Comments Yes Sex and Gender Information Value Date Recorded Sex Assigned at Not on file Legal Sex Female 7:14 PM CDT Gender Identity Not on file Sexual Orientation Not on file COVID-19 Exposure Response Date Recorded In the last 10 days, have yo u been in contact with someone who was confirmed or suspected to have Coronavirus/COVID-19? No / Unsure 07/21/2022 8:07 PM CDT documented as of this encounter Miscellaneous Notes * Telephone Encounter - Casi Dwyer RN - 07/21/2022 11:40 AM CDT Medication failed the protocol, provider to review and approve the medication order if appropriate. Requested Prescriptions Pending Prescriptions Disp Refills ondansetron (ZOFRAN-ODT) 4 MG TABLET DISPERSIBLE [Pharmacy Med Name: ONDANSETRON ODT 4MG TABLETS] 30 Tablet 0 Sig: DISSOLVE ONE TABLET BY MOUTH EVERY 8 HOURS NEEDED FOR NAUSEA, FIRST LINE Not Delegated - 5-HT3 Antagonists Protocol Failed - 07/21/2022 10:24 AM Failed - This refill cannot be delegated Passed - Visit with relevant provider in past 12 months or upcoming 90 days Recent Visits Date Type Provider Dept 07/04/22 Office Visit Kristina Galicia PAC [facility] Showing recent visits within past 365 days and meeting all other requirements Future Appointments Date Type Provider Dept 10/06/22 Appointment Kristina Galicia PAC [facility] Showing future appointments within next 90 days and meeting all other requirements documented in this encounter Plan of Treatment Upcoming Encounters Date Type Department Care Team (Late st Contact Info) Description 06/10/2024 2:30 PM PURCHASING DIRECTOR Office Visit [facility] - Endocrinology - [place] [address] [place] [address] Lucien Dominguez MD [address] [address] documented as of this encounter Visit Diagnoses Not on filedocumented in this encounter Additional Health Concerns Infection Onset Date Last Indicated Resolved Time COVID - 19 07/21/2022 07/21/2022 07/31/2022 12:1 6 AM CDT Respiratory Rule-Out 07/21/2022 07/21/2022 023 9:15 PM CDT Assessment Noted Time PHQ-9 Depression Total Score: 12 023 3:00 PM PURCHASING DIRECTOR documented as of this encounter Care Teams Rental Boats Caretaker Relationship Specialty Start Date End Date Provider, None [place] PCP - General 09/11/21 08/12/22 Kristina Galicia, [facility] [address] [place] [address] PCP - General Physician Pain Management Specialist 08/13/22 10/03/22 Provider, Not On File [place] PCP - General 10/04/22 03/22/23 Kristina Galicia, [facility] [address] [place] [address] PCP - General Physician Pain Management Specialist 03/23/23 08/03/23 Jenni Clay, PACKAGING MACHINE OPERATOR, CYBER OPS PLANNER [address] [place] [address] [place] [address] PCP - General Family Medicine 08/04/23 Rick Gutierrez MD [address] [place] [address] Consulting Physician Neurology 05/26/23 Geraldine Bernabe MD [address] [place] [address] Consulting Physician Gastroenterology 03/26/23 Venita Riggins APRN, CYBER OPS PLANNER [address] [facility] [place] [facility] [address] [place] [address] Nurse Practitioner Cardiology 09/29/23 Romain Esqueda MD [address] [facility] [address] [place] [address] Consulting Physician General Surgery 11/12/23 Anamika Orozco APRN, CYBER OPS PLANNER [address] [place] [address] Nurse Practitioner Advanced Practice Nurse 12/23/23 documented as of this encounter
--- OUTSIDE RECORDS SUMMARY | 2024-06-06 15:42 | XMS_ITS | Clinical Summary ---
Author Organization [facility] Address [address] [place] [address] Phone Care Team Providers Care Hub Associate Name Role Phone Unavailable Primary Care Provider Unavailabl e Allergies No known active allergies Medications escitalopram oxalate (LEXAPRO) 20 mg tablet Take 20 mg by mouth daily. Active risperiDONE (RisperDAL) 1 mg tablet Take 1 mg by mouth daily at bedtime. Active benztropine (COGENTIN) 0.5 mg tablet Take 0.5 mg by mouth daily at bedtime. Active Social History Tobacco Use Types Packs/Day Years Used Date Smoking Tobacco: Never Smokeless Tobacco: Never Alcohol Use Standard Drinks/Week Comments Not Currently 0 (1 standard drink = 0.6 oz pur e alcohol) Comments No Sex and Gender Information Value Date Recorded Sex Assigned at Not on file Legal Sex Female 12:18 PM INDUSTRIAL REHABILITATION CONSULTANT Gender Identity Not on file Sexual Orientation Not on file Last Filed Vital Signs Vital Sign Reading Time Taken Comments Blood Pressure 138/70 04/16/2019 3:50 PM INDUSTRIAL REHABILITATION CONSULTANT Pulse 82 04/16/2019 12:25 PM INDUSTRIAL REHABILITATION CONSULTANT Temperature 36.7 C (98 F) 04/16/2019 12:25 PM INDUSTRIAL REHABILITATION CONSULTANT Respiratory Rate 16 04/16/2019 3:50 PM INDUSTRIAL REHABILITATION CONSULTANT Oxygen Saturation 99% 04/16/2019 3:50 PM INDUSTRIAL REHABILITATION CONSULTANT Inhaled Oxygen Concentration - - Weight 90.7 kg (200 lb) 04/16/2019 12:25 PM INDUSTRIAL REHABILITATION CONSULTANT Height 160 cm (5' 3 ) 04/16/2019 12:25 PM INDUSTRIAL REHABILITATION CONSULTANT Body Mass Index 35.43 04/16/2019 12:25 PM INDUSTRIAL REHABILITATION CONSULTANT Plan of Treatment Health Maintenance Due Date Last Done Comments CHLAMYDIA SCREENING (ANNUAL) 11-24 YEARS 09/21/2011 HPV VACCINES (1 - 3-dose series) 09/21/2015 DTAP/TDAP/TD VACCINES (1 - Tdap) 09/21/2019 HEPATITIS B VACCINES (1 of 3 - 19+ 3-dose series) 09/21/2019 CERVICAL CANCER SCREENING 2021 INFLUENZA VACCINE (#1) 2023 PNEUMOCOCCAL VACCINE 0-64 YEARS Aged Out No longer eligible based on patient's age to complete this topic Insurance [facility] MEDICAID
--- OUTSIDE RECORDS SUMMARY | 2024-06-06 15:42 | XMS_ITS ---
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, Mood-congruent 03/11/2023 MAGALY E MOUSE R PMHNP Active Last Documented On 3 8:35AM ; [facility] Generalized Anxiety Disorder 03/11/2023 MAGALY E MOUSER PMHNP Active Last Documented On 3 8:35AM ; [facility] Chronic Post-traumatic Stress Disorder 03/11/2023 MAGALY E MOUSER PMHNP Active Last Documented On 3 8:35AM ; [facility] Plan of Treatment Findings Encounter Date Ordered patient will call fo r appointment as needed COVID SICK VISIT- ESTABLISHED PATIENT with AMY Eric KEM DNP 08/06/2023 Last Documented On 4 10:29AM ; [facility] Ordered return to the clinic if condition worsens or new symptoms arise COVID SICK VISIT- ESTABLISHED PATIENT with AMY BROWNLEE DNP 08/06/2023 Last Documented On 4 10:29AM ; [facility] Ordered patient will call fo r appointment as needed COVID SICK VISIT- ESTABLISHED PATIENT with ADAMA ACHARYA [facility] 03/01/2023 Last Documented On 3 11:50AM ; [facility] Ordered return to the clinic if condition worsens or new symptoms arise COVID SICK VISIT- ESTABLISHED PATIENT with ADAMA [facility] 03/01/2023 Last Documented On 3 11:50AM ; [facility] Go to the emergency room if condition worsens WALK-IN CLINIC SICK VISIT with ADAMA ACHARYA [facility] 10/17/2019 Last Documented On 0 10:34AM ; [facility] Ordered return to the clinic if condition worsens or new symptoms arise WALK-IN CLINIC SICK VISIT with ADAMA ACHARYA [facility] 10/17/2019 Last Documented On 0 10:34AM ; [facility] Pt to use prescription as or dered. Purpose of and use of medication discussed. WALK-IN CLINIC SICK VISIT with [facility]DA [facility] 10/12/2019 Last Documented On 0 4:53PM ; [facility] Continue current medication WALK-IN CLIN IC SICK VISIT with [facility] 10/12/2019 Last Documented On 0 4:53PM ; [facility] Referrals To Diagnosis Counselor MAGALY KINCAID [facility] - [address] [place] [address] - Bipolar disorder, current episode depressed, moderate Note: new Mom, with no suppo rt, history of bipolar Last Documented On 3 9:40AM ; [facility] Instructions to patient Intervention and counseling on cessation of tobacco use Last Documented On 4 10:11AM ; [facility] Instructions for patient Last Documented On 3 11:49AM ; [facility] Intervention and counseling on cessation of tobacco use Last Documented On 3 11:32AM ; [facility] Go to the emergency room if condition worsens Last Documented On 0 10:29AM ; [facility] Watch for signs/symptoms of infection, return to the clinic if seen Last Documented On 0 10:29AM ; [facility] Education and Decision Aids were provided during visit for: Patient education about adve rse reactions to medication Last Documented On 3 1:30PM ; [facility] Reviewed side effects and Ri sks/Benefits analysis Last Documented On 3 1:30PM ; [facility] Assessments Includes: Assessments for all patient encounters Findings Encounter Date Upper respiratory infection COVID SICK V ISIT- ESTABLISHED PATIENT with AMY BROWNLEE DNP 08/06/2023 Last Documented On 4 10:29AM ; [facility] [Adjustment disorder with mi xed anxiety and depressed mood] adjustment disorder BEHAVIORAL HEALTH INTEGRATION FOLLOW UP with MEJIA D ALEX [facility] 06/17/2023 Last Documented On 4 12:02PM ; [facility] [Other specified anxiety dis orders] depression with anxiety BEHAVIORAL HEALTH INTEGRATION FOLLOW UP with MEJIA D ALEX [employer] 05/11/2023 Last Documented On 4 12:04PM ; [facility] [Other specified anxiety dis orders] depression with anxiety BEHAVIORAL HEALTH INTEGRATION ESTABLISHED with MEJIA D ALEX [facility] 04/09/2023 Last Documented On 3 3:30PM ; [facility] [F31.32 - Bipolar disorder, current episode depressed, moderate] bipolar affective disorder, current episode depressed, moderate PSYCH NEW PATIENT EXAM 18 YEARS AND OLDER with MAGALY E MOUSER [facility] 03/05/2023 Last Documented On 3 8:11PM ; [facility] [F32.3 - Major depressive di sorder, single episode, severe with psychotic features] severe single episode major depression with psychotic features, mood-congruent PSYCH NEW PATIENT EXAM 18 YEARS AND OLDER with MAGALY E MOUSER PMHNP 03/05/2023 Last Documented On 3 8:11PM ; [facility] Chronic post-traumatic stress disorder P SYCH NEW PATIENT EXAM 18 YEARS AND OLDER with MAGALY E MOUSER PMHNP 03/05/2023 Last Documented On 3 8:11PM ; [facility] Generalized anxiety disorder PSYCH NEW P ATIENT EXAM 18 YEARS AND OLDER with MAGALY E MOUSER PMHNP 03/05/2023 Last Documented On 3 8:11PM ; [facility] Acute upper respiratory infection COVID SICK VISIT- ESTABLISHED PATIENT with ADAMA ACHARYA [facility] 03/01/2023 Last Documented On 3 11:50AM ; [facility] Multiple nonvenomous insect bites WALK-I N CLINIC SICK VISIT with AMY Tamie [facility] 10/20/2019 Last Documented On 0 9:58AM ; [facility] Gastroenteritis WALK-IN CLINIC SICK VISIT with Vladislav ACHARYA [facility] 10/17/2019 Last Documented On 0 10:34AM ; [facility] Instructions Includes: Instructions for all patient encounters Instructions to patient Intervention and counseling on cessation of tobacco use Last Documented On 4 10:11AM ; [facility] Instructions for patient Last Documented On 3 11:49AM ; [facility] Intervention and counseling on cessation of tobacco use Last Documented On 3 11:32AM ; [facility] Go to the emergency room if condition worsens Last Documented On 0 10:29AM ; [facility] Watch for signs/symptoms of infection, return to the clinic if seen Last Documented On 0 10:29AM ; [facility] Education and Decision Aids were provided during visit for: Patient education about adve rse reactions to medication Last Documented On 3 1:30PM ; [facility] Reviewed side effects and Ri sks/Benefits analysis Last Documented On 3 1:30PM ; [facility] Medical Equipment - Implanted Devices Includes: Current and historical Devices No Medical Equipment Recorded Medications Includes: Current and historical Medications Past Medications on file guaiFENesin ER 600 MG Oral Tablet Extended Release 12 Hour 08/06/2023 - 08/21/2023 Provider: AMY BROWNLEE DNP Diagnosis: Acute upper respiratory infection, unspecified One tablet twice a day PO PRN for congestion Last Documented On 4 10:42AM By Amy Brownlee DNP ; [facility] [place] Carbonate ER 450 MG Oral Tablet Extended Release 03/05/2023 - 07/03/2023 Provider: [facility]IN[facility]ID [facility] Diagnosis: Bipolar disorder , current episode depressed, moderate 2 tablets at bedtime by mouth Last Documented On 3 3:47PM By Magaly Kincaid PMHNP ; [facility] carBAMazepine 200 MG Oral Tablet 03/05/2023 - 07/03/2023 Provider: MAGALY KINCAID TRISTIAN Diagnosis: Bipolar disorder , current episode depressed, moderate One tablet twice a day Last Documented On 3 3:47PM By Magaly Kincaid PMHNP ; [facility] SEROquel 100 MG Oral Tablet 03/05/2023 - 07/03/2023 Provider: MAGALY KINCAID PMHNP Diagnosis: Bipolar disorder , current episode depressed, moderate One tablet at bed time Last Documented On 3 3:47PM By Magaly Kincaid HNP ; [facility] buPROPion HCl ER (XL) 300 MG Oral Tablet Extended Release 24 Hour 03/05/2023 - 07/03/2023 Provider: MAGALY KINCAID PMHNP Diagnosis: Major depressv d isord, single epsd, severe w psych features One tablet daily Last Documented On 3 3:47PM By Magaly Kincaid PMHN ; [facility] Propranolol HCl 10 MG Oral Tablet 03/05/2023 - 07/03/2023 Provider: MAGALY KINCAID JASON Diagnosis: Generalized anxi ety disorder 1 tablet twice a day by moama lyons as needed for anxiety Last Documented On 3 4:03PM By Magaly Kincaid PMHN ; [facility] Triamcinolone Acetonide 0.1% External Cream 10/20/2019 - 03/01/2023 Provider: AMY [facility] Diagnosis: Bit/stung by nonvenom insect & oth nonvenom arthropods, init Apply twice a day Last Documented On 3 11:32AM By Cierra DAWN ; [facility] Ondansetron 4 MG Oral Tablet Disintegrating 10/17/2019 - 03/01/2023 Provider: ADAMA [facility] Diagnosis: Nausea with vomi ting, unspecified 1 every 6 hours as needed Last Documented On 3 11:33AM By CIERRA DAWN ; [facility] Amoxicillin-Pot Clavulanate 875-125 MG Oral Tablet 10/12/2019 - 10/20/2019 Provider: HILDA MUNOZ Diagnosis: Acute frontal sinusitis, unspecified One tablet twice a day for 10 days Last Documented On 10/20/2019 9:46AM By LEXI DAWN ; [facility] Medications Administered Includes: Administered Medications in patient's chart No Administered Medications Recorded Vital Signs Includes: Vital Signs from 06/06/2023 through 06/06/2024 Vital Name 08/06/2023 10:10A Pulse Rate-Sitting (bpm) 105 Temp-Oral (F) 98.5 Height (in) 63 Weight (lb) 190 Body Mass Index 33.7 Body Surface Area 1.9 Oxygen Saturation (%) 98 Last Documented: On 08/06/2023 10:11A M ; [facility] Results Includes: Results from 06/06/2023 through 06/06/2024 Group A strep [facility] Ordered by AMY BROWNLEE DNP on 02/2024 Collected: Reported: 08/06/2023 10:13 Last Documented On 4 10:23AM ; [facility] All test results are final unless otherw ise noted. Rapid Strep neg N (Normal) Last Documented On 4 10:23AM ; [facility] LOT # AND EXP. DATE [id number] 02/25/26 N (Normal) Last Documented On 4 10:23AM ; [facility] INT. QC ACCEPTABLE? yes N (Normal) Last Documented On 4 10:23AM ; [facility] SARS COVID-19 FLU A & B [facility] Ordered by AMY BROWNLEE DNP on 02/2024 Collected: Reported: 08/06/2023 10:23 Last Documented On 4 10:23AM ; [facility] All test results are final unless otherw ise noted. COVID neg N (Normal) Last Documented On 4 10:23AM ; [facility] INFLUENZA A neg (Negative) N (Normal) Last Documented On 4 10:23AM ; [facility] INFLUENZA B neg (negative) N (Normal) Last Documented On 4 10:23AM ; [facility] INT. QC ACCEPTABLE? yes N (Normal) Last Documented On 4 10:23AM ; [facility] LOT # & EXP. DATE [id number] 04/14/24 N (Normal) Last Documented On 4 10:23AM ; [facility] History of Present Illness History of Present Illness not supported for this document type No History of Present Illness Recorded Social History Description Last Updated Tobacco non-user 08/06/2023 Last Documented On 4 10:29AM ; [facility] No family problems 03/05/2023 Last Documented On 3 8:11PM ; [facility] No recent emotional stress 03/05/2023 Last Documented On 3 8:11PM ; [facility] Non-smoker 10/12/2019 Last Documented On 0 4:53PM ; [facility] Smoking Status Unknown Procedures and Surgical History Includes: Procedures from 06/06/2023 through 06/06/2024 Procedures Code Diagnosis Performing Provider Service L ocation Service Date SARS-CO,SARS-COV-2, INFLUENZA A/B TEST (CLIA WAIVED) 22841 Acute cough AMY BROWNLEE [facility] 08/06/2023 Last Documented On 4 4:46PM ; [facility] STREP TEST SCREENING (CLIA WAIVED) 07992 Acute pharyngitis, unspecified AMY BROWNLEE [facility] 08/06/2023 Last Documented On 4 4:46PM ; [facility] PSYCHOTHERAPY 60 MIN WITH PATIENT (CLINICAL FREELANCE DISPLAYER, POLICY CRITERIA APPLIED) 34139 Adjustment disorder with mixed anxiety and depressed mood [facility] 06/17/2023 Last Documented On 4 8:52AM ; [facility] Medical History Includes: Medical History in patient's chart Description Last Updated Not taking OTC medications 10/12/2019 Last Documented On 0 4:53PM ; [facility] Family History Includes: Family History in patient's chart Description Last Updated Family history unchanged 03/01/2023 Last Documented On 3 11:50AM ; [facility] Review of Systems Review of Systems not supported for this document type No Review of Systems Recorded Mental Status No Mental Status Recorded Functional Status No Functional Status Recorded Physical Exam Physical Exam not supported for this document type No Physical Exam Recorded Allergies Includes: Active, inactive, and resolved Allergies Substance Type Reaction Onset Date Resolved Date Statu s Tylenol Allergy 03/01/2023 Active Last Documented On 4 10:11AM ; [facility] TORADOL Allergy 03/01/2023 Active Last Documented On 4 10:11AM ; [facility] Melatonin Allergy 03/01/2023 Active Last Documented On 4 10:11AM ; [facility] Latex Allergy 10/12/2019 Active Last Documented On 4 10:11AM ; [facility] Inapsine Allergy 03/01/2023 Active Last Documented On 4 10:11AM ; [facility] HYDROcodone-Acetaminophen Allergy 03/01/2023 Active Last Documented On 4 10:11AM ; [facility] COMPAZINE Allergy 03/01/2023 Active Last Documented On 4 10:11AM ; [facility] Augmentin Allergy sick to stomach 10/20/2019 Act flor Last Documented On 4 10:11AM ; [facility] Amoxicillin Allergy 03/01/2023 Active Last Documented On 4 10:11AM ; [facility] Albuterol Allergy 03/01/2023 Active Last Documented On 4 10:11AM ; [facility] Adhesive Paper Allergy 03/01/2023 Acti ve Last Documented On 4 10:11AM ; [facility] Encounters Includes: Encounters from 06/06/2023 through 06/06/2024 Encounter Provider Location Date Check-In Time Check-Out Time Diagnosis COVID SICK VISIT- ESTABLISHED PATIENT AMY BROWNLEE DNP [facility] 08/06/19 24 9:57AM 10:26AM Upper Respiratory Infection [facility] FOLLOW UP MEJIA WILLARDW [facility] 06/17/19 24 10:47AM 11:51AM Adjustment Disorder Insurance Includes: Active Insurance Policies Plan Name Member ID Group # Subscriber Relationship Effect flor Dates 1 - MEDICARE PART A CLAIMS/NGS [id number] PAUL LAMAS Self 2 - MEDICAID [place] MEDICARE SECOND [id number] PAUL LAMAS Self Clinical Notes Includes: Signed Clinical Notes starting from 05/16/2022 * Progress note Date Encounter Last Documented by 08/06/2023 COVID SICK VISIT- ESTABLISHED GREGORY HUERTA Last documented on 08/06/2023; 10:29 AM, AMY BROWNLEE DNP; [facility] Chief Complaint The Chief Complaint is: Sore/swollen throat, runny nose, nausea. sx started yesterday. History of Present Illness PAUL LAMAS is [...] pain - No diarrhea - No rash Paul presents to the clinic with the above [...] tobacco assessment performed Review of medications documented. * Progress note Date Encounter Last Documented by 06/17/2023 [facility] Last documented on 06/17/2023; 12:02 PM, MEJIA JOHNSON LCSW; [facility] Active Problems & Conditions - Bipolar Disorder Affective, Current Episode Depressed, Moderate - Chronic Post-traumatic Stress Disorder - Generalized Anxiety Disorder - Major Depression Single Episode Severe W/ Psychotic Features, Mood-congruent Reason For Visit Visit for: Follow up visit. Referred by. Assessment - Adjustment disorder History of Present Illness PAUL LAMAS is a 22 year old female. - Primary Care Provider: Current Medication - buPROPion HCl ER (XL) 300 MG Oral Tablet Extended Release 24 Hour One tablet daily, 30 days, 3 refills - carBAMazepine 200 MG Oral Tablet One tablet twice a day, 30 days, 3 refills - [place] Carbonate ER 450 MG Oral Tablet Extended Release 2 tablets at bedtime by mouth, 30 days, 3 refills - Propranolol HCl 10 MG Oral Tablet 1 tablet twice a day by mouth as needed for anxiety, 30 days, 3 refills - SEROquel 100 MG Oral Tablet One tablet at bed time, 30 days, 3 refills Physical Findings Psychiatric: Psychiatric: Value PHQ9 score: 14 TIFFANIE 7 score: 10 Family History Family history unchanged User Defined 31 Clinician provided active empathic listening, validation, clarification, and emotional support. EMDR Phase 8 Re-evaluation User Defined 32 Paul reported, I'm pretty good. She got into a fight with her grandmother last night, and she and her boyfriend now have his child living with them. She went to visit her father, and a huge thing happened. She allowed her father to hold her 4-month-old baby. He wanted to give her a Thin Mint cookie and she told him no. He took the baby in the other room and came back with a big smile on his face, showing her he'd given the baby the cookie anyway. So I screamed at him and took her from him. Another time, she'd taken her daughter to see her father when she was a month old. He told her that her brother had strep, which made her question whether to allow her father to hold the baby. She and her boyfriend discussed it, and decided it was safe. She feels she is able to make purposeful, healthy choices with her father. She feels a little less able to be purposeful with her mother. Paul was responsible for her brother growing up, and she notices that he suffers from depression. Her mother does not want to get him in therapy, because she'll have to admit something is wrong with him. Two days before seeing him, her father had a heart attack. She has a van that was given to her by a family member, who thinks she should be grateful they gave it to her. I've put $2,000 into it already. They broke down at [facility] and called her mom, who wouldn't be getting off work for 5 hours. Her mother called her grandmother, who said could have it towed. They got a ride home, and she texted asking her grandmother what the plan was. Her grandmother again said she should be grateful, which triggered Paul. Her grandfather had recently told her she was disgusting due to a few items being in the van. She's been pulled over 3 times in a different car. I wasn't doing anything wrong, just driving. Doing [employer], trying to make money. She was pulled over due to her license plate light being out. She didn't have car insurance, and she found out her license had been suspended previously for no insurance. When she was under 18, her license was suspended for having two tickets in under two years. She feels she has PTSD from the numerous times being pulled over. Her mother recently had Covid and had Paul come get her brother, who gave Covid to Edwin Osorio and her baby Janice. They took the baby to the ER and sat there for six hours. Paul reported her mother recently apologized after they'd had a fight, which is something she's never done in the past. She told Paul she didn't like the way she'd talked to her, and explained she felt controlled by her mother (Paul's grandmother), which made her take it out on Paul. Her boyfriend got a job working at [employer] as a resource navigator. Paul recently saw a neurologist for her memory issues. He told her that because she was bipolar, things would not get better for her until she was under less stress, which was triggering for her. Something that bothers her is always feeling everything is her fault and that I'm crazy. I got sick once a month. I get all of these tests done, and they didn't find anything wrong. She used to have a best friend who now lives in [place]. I was a bad influence and treated her like crap, so she stopped talking to me. She messaged me 3 weeks ago and said she has been praying for me. Paul explained that she used to be friends with this person, then introduced her to another friend, and those two became friends, ditching Paul. They are recently no longer friends, so the one friend is reaching out, trying to get Paul to be there for her. User Defined 33 Paul was able to share thoughts, feelings and experiences while receiving unconditional positive regard, validation and emotional support from racebook writer. Paul was able to share recent experiences that caused her to feel distressed, while receiving emotional support from racebook writer. Paul was able to be purposeful in a conversation with her grandmother, when she would have previously been triggered into a [id number] response. Final Finisher and Paul discussed the idea that people treat us the way there are, and it is now useful experience, being able to see who the people in her life really are. Plan Client will continue to monitor thoughts, feelings, and triggers, utilizing coping skills and resources as needed. Bottom of Document Start time: 10:45 a.m. End time: 11:57 a.m. Next Appt for: 07/13 at 2:45 p.m.
--- OUTSIDE RECORDS SUMMARY | 2024-06-06 15:42 | XMS_ITS | Encounter Summary ---
Author Organization [facility] Address [address] [place] [address] Phone Care Team Providers Care Tosser Name Role Phone Rick Gutierrez MD Unavailable [phone] Geraldine Bernabe MD Unavailable [phone] Jenni Clay BIOINFORMATICS SOFTWARE ENGINEER, WAX BLENDER Primary Care Provider [phone] Venita Riggins BIOINFORMATICS SOFTWARE ENGINEER, WAX BLENDER Unavailable + [phone] Romain Esqueda MD Unavailable [phone] Anamika Orozco APRN, WAX BLENDER Unavailable Reason for Visit * Reason Comments Medication Refill Encounter Details Date Type Department Care Team (Late st Contact Info) Description 08/26/2023 Refill [facility] - Internal Medicine - [place] [address] [place] [address] Kristina Galicia, [facility] [address] [place] [address] Medication Refill Social History Tobacco Use Types Packs/Day Years Used Date Smoking Tobacco: Never Smokeless Tobacco: Never Alcohol Use Standard Drinks/Week Comments Yes 0 (1 standard drink = 0.6 oz pur e alcohol) occasional C Utilities Answer Date Recorded In the past 12 months has e electric, gas, oil, or water company threatened to shut off services in your home? Yes 06/15/2023 Social Connection and Isolation Panel [NHANES] A nswer Date Recorded In a typical week, how many times do you talk on the phone with family, friends, or neighbors? Once a week 06/15/2023 How often do you get together with friends or re latives? Once a week 06/15/2023 How often do you attend mormon or baptism serv ices? Never 06/15/2023 Do you belong to any clubs o r organizations such as mormon groups, unions, fraternal or athletic groups, or school groups? No 06/15/2023 How often do you attend meet ings of the clubs or organizations you belong to? Never 06/15/2023 Are you , , di vorced, , never , or living with a partner? Never 06/15/2023 AUDIT-C Answer Date Recorded Q1: How often do you have a drink containing alcohol? Never 06/15/2023 Q2: How many drinks containi ng alcohol do you have on a typical day when you are drinking? Patient does not drink Q3: How often do you have si x or more drinks on one occasion? Never 06/15/2023 Overall Financial Resource Strain (CARDIA) Answe r Date Recorded How hard is it for you to pa y for the very basics like food, housing, medical care, and heating? Very hard 06/15/2023 PHQ-2 Answer Date Recorded Total Score - Questions 1-9 12 06/25 [facility] of Occupat ional Health - Occupational Stress Questionnaire Answer Date Recorded Do you feel stress - tense, restless, nervous, or anxious, or unable to sleep at night because your mind is troubled all the time - these days? Rather much 06/15/2023 Exercise Vital Sign Answer Date Recorde d On average, how many days pe r week do you engage in moderate to strenuous exercise (like a brisk walk)? 1 day 06/15/2023 On average, how many minutes do you engage in exercise at this level? 10 min 06/15/2023 Hunger Vital Sign Answer Date Recorded Within the past 12 months, y ou worried that your food would run out before you got the money to buy more. Often true 06/15/19 24 Within the past 12 months, t he food you bought just didn't last and you didn't have money to get more. Often true 06/15/2023 PRAPARE - Transportation Answer Date Re corded In the past 12 months, has l ack of transportation kept you from medical appointments or from getting medications? No 05/28 In the past 12 months, has l ack of transportation kept you from meetings, work, or from getting things needed for daily living? No 06/15/2023 Housing Stability Vital Sign Answer Torres e Recorded In the last 12 months, was t here a time when you were not able to pay the mortgage or rent on time? Yes 06/15/2023 In the last 12 months, how many places have you lived? 4 06/15/2023 In the last 12 months, was t here a time when you did not have a steady place to sleep or slept in a jail (including now)? Yes 06/15/2023 Education Answer Date Recorded What is the highest level of school you have completed or the highest degree you have received? Some college, no degree 07/04/2022 Sexually Active Control Partners Comments Not Currently Comments Unknown Sex and Gender Information Value Date Recorded Sex Assigned at Not on file Legal Sex Female 7:14 PM CDT Gender Identity Not on file Sexual Orientation Not on file documented as of this encounter Plan of Treatment Upcoming Encounters Date Type Department Care Team (Late st Contact Info) Description 06/10/2024 2:30 PM PRINTER SLOTTER FEEDER Office Visit [facility] - Endocrinology [facility] [address] [place] [phone] Lucien Dominguez MD [address] [phone] documented as of this encounter Visit Diagnoses Not on filedocumented in this encounter Additional Health Concerns Assessment Noted Time PHQ-9 Depression Total Score: 12 023 3:00 PM PRINTER SLOTTER FEEDER documented as of this encounter Care Teams Tosser Relationship Specialty Start Date End Date Jenni Clay APRN, JUANITA [address] [place] [address] [place] [id number] PCP - General Family Medicine 08/04/23 Rick Gutierrez MD [address] [place] [phone] Consulting Physician Neurology 05/26/23 Geraldine Bernabe MD [address] [place] [address] Consulting Physician Gastroenterology 03/26/23 Venita Riggins APRN, WAX BLENDER #[address] [address] Nurse Practitioner Cardiology 09/29/23 Rom[facility] MD [facility] [address] [phone] Consulting Physician General Surgery 11/12/23 Anamika Orozco APRN, WAX BLENDER [address] [place] [address] Nurse Practitioner Advanced Practice Nurse 12/23/23 documented as of this encounter
--- OUTSIDE RECORDS SUMMARY | 2024-06-06 15:42 | XMS_ITS | Referral Summary ---
Author Organization [facility] Address [address] [place] [address] Care Team Providers Care Rubber Compounder Mixer Name Role Phone No, Physician Primary Care Provider [phone] Piper Stephen MD Unavailable Allergies Active Allergy [...] Nonreactive 07/13/2020 Lab Results Component Value Date [id number] Nonreactive 06/20/2022 Lab Results Component Value Date [...] as allergic to one component in vaccine Social History Tobacco Use Types Packs/Day Years Used Date Smoking Tobacco: Never Passive Smoke Exposure: Never Smokeless Tobacco: Never AUDIT-C Answer Date Recorded Q1: How often do you have a drink containing alc ohol? Monthly or less 06/20/2022 Average Number of Drinks Not on file 023 Frequency of Binge Drinking Not on file 05/29 Houston Depression Scale Answer Date Recorded [place] Depression Scale Total 26 03/12/2023 The thought [...] on file Legal Sex Female 2:48 AM RIPRAP MAN Gender Identity Not on file Sexual Orientation [...] 12/18/2023 12:52 AM CDT Plan of Treatment Not on file Procedures Procedure Name Priority Date/Time Associated Diagnosis Comments PAP WITH REFLEX TO HIGH RISK HPV Routine 06/20/2022 3:39 PM RIPRAP MAN Encounter for supervision of normal first in first trimester Encounter for Papanicolaou smear for cervical cancer screening Screening for human papillomavirus (HPV) N. GONORRHOEAE/C. TRACHOMATIS AMPLIFICATION Routine 06/20/2022 3:22 PM RIPRAP MAN Encounter for supervision of normal first in first trimester Screening examination for STD (sexually transmitted disease) HEPATITIS C ANTIBODY Routine 06/20/2022 3:19 PM RIPRAP MAN Encounter for supervision of normal first in first trimester from Last 3 Months or Most Recently Relevant to Health Maintenance Results * Pap with reflex to High Risk HPV (06/20/2022 3:39 PM RIPRAP MAN) Thin prep (Pap test) 06/20/2022 3:39 PM RIPRAP MAN 06/26/2022 1:03 PM RIPRAP MAN Narrative PATHOLOGY [facility] - 06/30/2022 1:29 PM RIPRAP MAN EPIC results best viewed via link to PDF [address] [address] Tele: Barbara Felix MD - Farm Machinery Erector CYTOLOGY REPORT Note to Patients: This report [...] questions and explain the details. Patient Name: JO LAMAS Address: [address] [place] [address] Gender: F : 2000 (Age: 21) Service: Location: [facility] #: [id number] Patient Type: [facility] SPECIMEN Taken: 06/20/2022 Reported: 06/30/2022 Physician(s): Piper Stephen M.D. FINAL DIAGNOSIS: Specimen Type: A. - ThinPrep Pap w/ reflex HPV: Statement of Specimen Adequacy: Source: Cervical/Endocervical - Satisfactory for interpretation - Endocervical /Transformation Zone component present - Case screened using computer assisted imaging technology General Categorization: - Negative for intraepithelial lesion or malignancy jxm/06/30/2022 13:29HAM Ni (ASCP) Report Reviewed and Electronically Signed By [...] Stephen MD LAB CYTOLOGY ORDERABLES Final Result Performing Organization Address [facility] Co de Phone Number PATHOLOGY [facility] Laboratory Receiving [address] [place] [address] * N. gonorrhoeae/C. trachomatis Amplification Endocervical (06/20/2022 3:22 PM RIPRAP MAN) C. trachomatis Not Detected Not Detected [facility] N. gonorrhoeae Not Detected Not Detected [facility] Comment: Testing performed by the [facility]. This assay detects Chlamydia trachomatis and Neisseria gonorrhoeae by nucleic acid amplification testing (NAAT). This test is approved by the [facility] Food and Drug Administration and the performance characteristics have been verified by the laboratory. The performance characteristics of this test have not been evaluated in women or individuals less than 16 years of age. Endocervical (None) 06/20/19 3:22 PM RIPRAP MAN 06/20/2022 5:50 PM RIPRAP MAN Piper Stephen MD LAB MICROBIOLOGY - GENERAL OR DERABLES Final Result Performing Organization Address [facility] Co de Phone Number [facility] [address] Department [place] [address] * Hepatitis C antibody (06/20/2022 3:19 PM RIPRAP MAN) Hep C Ab Nonreactive Nonreactive [facility] Comment: Interpretive Data Nonreactive: Antibodies to [...] revised on 2019. Blood 06/20/2022 3:19 PM RIPRAP MAN 06/20/2022 6:01 PM RIPRAP MAN us Piper Stephen MD LAB MICROBIOLOGY - GENERAL OR DERABLES Edited Result - Final [facility] [address] Department [place] [address] from Last 3 Months or Most Recently Relevant to Health Maintenance Insurance [employer] MEDICARE [facility] MEDICARE Advance Directives For more information, please contact: [phone] * Full Code (Latest Code Status on File) Date Activated Date Inactivated Comments 02/05/2023 10:05 AM 02/07/2023 3:12 PM * Full Code Date Activated Date Inactivated Comments 02/04/2023 8:28 AM 02/05/2023 10:05 AM Full CPR in case of cardiopulmonary arrest Care Teams Rubber Compounder Mixer Relationship Specialty Start Date End Date No, Physician PCP - General 02/24/21 Piper Stephen MD [phone] [address] Consulting Physician Obstetrics and Gynecology 06/10/22
--- OUTSIDE RECORDS SUMMARY | 2024-06-06 15:42 | XMS_ITS | Clinical Summary ---
Author Organization [facility] Address [address] [place] [address] Phone Care Team Providers Care Oyster Tonger Name Role Phone Rick Gutierrez MD Unavailable Geraldine Bernabe MD Unavailable [phone] Jenni Clay DECKHAND MAINTENANCE, SATELLITE SPECIALIST Primary Care Provider [phone] Venita Riggins DECKHAND MAINTENANCE, SATELLITE SPECIALIST Unavailable + [phone] Romain Esqueda MD Unavailable [phone] Anamika Orozco DECKHAND MAINTENANCE, SATELLITE SPECIALIST Unavailable Allergies Active Allergy Reactions Criticality Noted Date Comments Acetaminophen Other (see Comments),Unknown Low 06/20/2022 Albuterol Anaphylaxis,Unknown High 02/25/2021 Patient states anaphylaxis. Amoxicillin Vomiting,Unknown Low 02/23/2021 Banana Unknown 09/26/2022 Cinnamon Anaphylaxis,Unknown High 02/25/2021 Prochlorperazine Anxiety 07/02/2022 Diphenhydramine Unknown 03/06/2021 Docusate Sodium Nausea 02/06/2023 Patient states she is allergic Droperidol Anxiety,Unknown Low 07/25/2022 Fish Allergy Vomiting Low 03/06/2021 Grape (Artificial) Flavoring Agent (Non-Screening) Vomiting 02/25/2021 Hydrocodone Nausea 09/26/2022 Latex Hives 02/25/2021 Melatonin Unknown 09/26/2022 Hydrocodone-Acetaminophen Nausea,Vomiting 01/21 Proanthocyanidin Unknown 09/26/2022 Ketorolac Tromethamine Other (see Comments) 10/04/2022 Mental status change Wound Dressing Adhesive Hives Medium 06/20/2022 Medications lithium (ESKALITH) 450 MG Tablet Controlled Release Take 750 mg by mouth 2 times daily. 2 Active buPROPion (WELLBUTRIN) 300 MG TABLET SR 24 HR XL tablet Take 300 mg by mouth daily. 3 Active propranolol (INDERAL) 10 MG Tablet Take 20 mg by mouth 2 times daily. 3 Active ondansetron (ZOFRAN-ODT) 4 MG TABLET DISPERSIBLE DISSOLVE 1 TABLET ON THE TONGUE EVERY 8 HOURS NEEDED FOR NAUSEA 90 Tablet 4 Active levothyroxine (SYNTHROID) 50 MCG Tablet Take 1 Tablet by mouth daily. 90 Tablet 3 4 Active carBAMazepine (TEGretol) 200 MG Tablet Take 200 mg by mouth 2 times daily. 4 Active Caplyta 10.5 MG Capsule Take 1 Capsule by mouth daily. 4 Active omeprazole (PriLOSEC) 40 MG CAPSULE DELAYED RELEASE Take 1 Capsule by mouth in the morning and at bedtime. 180 Capsule 4 Active Active Problems Problem Noted Date Diagnosed Date Memory loss 06/15/2023 SOB (shortness of breath) 05/26/2023 Snoring 05/26/2023 Generalized abdominal pain 05/05/2023 Overview (05/05/2023): Dr Green following Gall stones 03/23/2023 Chronic abdominal pain 03/23/2023 Anemia 03/23/2023 Other specified hypothyroidism 07/04/2022 Other hyperlipidemia 07/04/2022 Eating disorder 07/04/2022 Eulalia-Herrera tear 07/04/2022 Personality disorder 07/04/2022 Overview (07/04/2022): PSYCHE follows Bipolar 1 disorder 07/04/2022 PTSD (post-traumatic stress disorder) 07/04/2022 Moderate episode of recurrent major depressive d isorder 07/04/2022 Overview (07/04/2022): Psychotic features Eosinophilic asthma 07/04/2022 Encounters Date Type Department Care Team Description 03/10/2024 MyChart RX Renewal [facility] - Gastroenterology - [place] [address] [place] [phone] Anamika Orozco APRN, SATELLITE SPECIALIST Medication Renewal Reviewed from Last 3 Months Immunizations Immunization Administration Dates Next Due DTAP VACCINE 10/08/2005, 6,01/17/2002,04/12,02/10/2001,2000 H1N1 Flu, Unspecified Formulation 07/19/2009,02/2009 HEP B/HIB Combined Vaccine 04/12/2001 Hepatitis A Vaccine, Pediatric/adolescent, 2 Dose Schedule 11/14/2003,09/22/2002 Hepatitis B Vaccine, Pediatric/adolescent 2000,2000 Hepatitis B Vaccine,unspecif ied Formulation 04/12/2001 Hib Vaccine,unspecified Formulation 01/17/2002,1 ,2000 Human Papillomavirus Vaccine (HPV), quadrivalent 11/01/2013,03/30/2013,12/03/2012 Inactivated Polio Vaccine 10/08/2005,,02/10/2001,11/19 Influenza Vaccine, Quadrivalent, PF 02/27,06/03/2017,04/10/2015,03/30 Influenza Vaccine,unspecifie d Formulation 12/10/2015,02/13/2011,03/06/2008,02/25 MMR Vaccine 10/24/2004,10/20/2001 Meningococcal Group B OMV 07/27/2017,06/03/2017 Meningococcal MCV4, Unspecif ied Formulation 11/26/2011 Meningococcal MCV4O 10/03/2016 Pneumococcal Vaccine Peds - 7 Valent 04/12/2001, 02/10/2001,2000 TDAP Vaccine 07/13/2020,10/01/2010 Varicella Vaccine Live 11/05/2006,10/20/2001, Family History Medical History Relation Name Comments Heart Disease Father Bipolar Disorder Mother Relation Name Status Comments Father Alive Mother Alive Social History Tobacco Use Types Packs/Day Years Used Date Smoking Tobacco: Never Smokeless Tobacco: Never Tobacco Cessation:Counseling Given: Not Answered Alcohol Use Standard Drinks/Week Comments Not Currently 0 (1 standard drink = 0.6 oz pur e alcohol) occasional C Utilities Answer Date Recorded In the past 12 months has th e electric, gas, oil, or water company [...] week 06/15/2023 How often do you attend jain or hinduism serv ices? Never 06/15/2023 Do you belong to any clubs o r organizations such as jain groups, unions, fraternal or athletic groups, or [...] Total Score - Questions 1-9 12 06/25 [facility] [place] of Occupat ional Health - Occupational Stress [...] place to sleep or slept in a snf (including now)? Yes 06/15/2023 Education Answer Date Recorded What is the highest level of school you have completed or the highest degree you have received? Some college, no degree 07/04/2022 Sexually Active Control Partners Comments Not Currently None Comments Unknown Sex and Gender Information Value Date Recorded Sex Assigned at Not on file Legal Sex Female 7:14 PM CDT Gender Identity Not on file Sexual Orientation Not on file Last Filed Vital Signs Vital Sign Reading Time Taken Comments Blood Pressure 120/78 12/23/2023 1:06 PM CDT Pulse 63 12/23/2023 1:06 PM CDT Temperature 35.7 C (96.2 F) 12/23/2023 1:06 PM CDT Respiratory Rate 14 12/23/2023 1:06 PM CDT Oxygen Saturation 100% 12/23/2023 1:06 PM CDT Inhaled Oxygen Concentration - - Weight 87.6 kg (193 lb 3.2 oz) 12/23/2023 1:06 P M CDT Height 160 cm (5' 3 ) 12/23/2023 1:06 PM CDT Body Mass Index 34.22 12/23/2023 1:06 PM CDT Plan of Treatment Upcoming Encounters Date Type Department Care Team (Late st Contact Info) Description 06/10/2024 2:30 PM CONSTRUCTION TEACHER Office Visit [facility] - Endocrinology - [place] [address] [place] [phone] Lucien Dominguez MD [address] [phone] Health Maintenance Due Date Last Done Comments Hepatitis C Virus (HCV) Screening 2000 Pneumococcal Immunization Combined (1 of 2 - PCV) 09/21/2019 04/12/2001, 02/10/2001, 2000 Influenza Immunization (#1) 12/27/202302/27, 06/03/2017, 12/10/2015, Additional history exists SARS-COV-2 Immunization ( - season) 2023 DTaP/Tdap/Td Immunization (8 - Td or Tdap) 07/13/2030 07/13/2020, 10/01/2010, 10/08/2005, Additional history exists Respiratory Syncytial Virus (RSV) Immunization (Adult) (1 - 1-dose 75+ series) 09/21/2075 Hepatitis B Immunization Completed 001, 04/12/2001, 2000, Additional history exists Hepatitis A Immunization Discontinued 11/14/2003, 08/26 Measles Mumps Rubella (MMR) Immunization Discontinued 10/24/2004, 10/20/2001 Polio (IPV) Immunization Discontinued 006, 01/17/2002, 02/10/2001, Additional history exists Varicella Immunization Discontinued 7, 10/20/2001, 09/19/2001 Human Papillomavirus (HPV) Immunization Completed 11/01/2013, 03/30/2013, 12/03/2012 Meningococcal Immunization (ACWY) Completed 10/03/2016, 11/26/2011 Meningococcal B Immunization Completed 07/27/2017, 06/03/2017 TdaP Immunization Discontinued 07/13/2020, 10/01/2010 Rotavirus Immunization Aged Out No lo nger eligible based on patient's age to complete this topic Insurance MEDICARE MEDICARE C [employer] MEDICARE Care Teams Oyster Tonger Relationship Specialty Start Date End Date Jenni Clay APRN, JUANITA [address] [facility] [address] [place] [address] PCP - General Family Medicine 08/04/23 Rick Gutierrez MD [address] [place] [phone] Consulting Physician Neurology 05/26/23 Geraldine Bernabe MD [address] [place] [address] Consulting Physician Gastroenterology 03/26/23 Venita Riggins APRN, SATELLITE SPECIALIST #2 [facility] [address] [address] Nurse Practitioner Cardiology 09/29/23 Romain Esqueda MD [address] [phone] Consulting Physician General Surgery 11/12/23 Anamika Orozco APRN, SATELLITE SPECIALIST [address] [place] [address] Nurse Practitioner Advanced Practice Nurse 12/23/23
--- OUTSIDE RECORDS SUMMARY | 2024-06-06 15:42 | XMS_ITS ---
Author Organization [facility] Agrivi Address [facility] [address] [address] Care Team Providers Care Electron Beam Machine Welder Setter Name Role Phone Joseph Garcia Unavailable [phone] REASON FOR VISIT Refills Medications Medication SIG (Take, Route, Frequency, Duration) Notes Start Date End Date Status [place] Carbonate ER 450 MG 1 tablet Oral twice daily for 30 days take with 300mg tablet Active Social History Sex Assigned At : Social History Observation Description Sex Assigned At Female Encounters Encounter Location Date Provider Diagnosis [facility] [id number] [facility] [address] [place] [address] [address] 01/11/2024 Joseph Garcia Bipolar disorder wit h moderate depression F31.32 Assessments Encounter Date Diagnosis (ICD Code) Assessment Notes Treatment Notes Treatment Clinical Notes Section Notes 01/11/2024 Bipolar disorder with moderate depression (ICD-10 - F31.32) Plan Of Treatment Medication Medication Name Sig Start Date Stop Date Notes [place] Carbonate ER 450 MG 1 tablet Ora l twice daily for 30 days Progress Notes * PAUL LAMAS MDOB: 1 (23 yo F)Acc No.[id number]:01/11/2024 Patient: Gabriela PAUL COMER :2000 A ge:23 Y S ex:Female Address:[facility] [address], [place], [address] * Refills Refill [place] Carbonate ER Tablet Extended Release, 450 MG, Oral, 60, 1 tablet, twice daily, 30 days, Refills=1 Subjective: * Chief Complaints: * R efills * Medical History: * Surgical History: * Hospitalization/Major Diagno stic Procedure: * Medications: Objective: * Vitals: * Physical Examination: Assessment: * Assessment: 1. B ipolar disorder with moderate depression - F31.32 (Primary) Plan: * Treatment: * Procedure Codes: * true * Date: Generated for Amber duval/Terrell/Rita on: 0 06/06/2024 03:42 PM THERAPIST RADIATION
--- OUTSIDE RECORDS SUMMARY | 2024-06-06 15:42 | XMS_ITS ---
Author Organization [facility] [place] Address [address] [facility] [address] [place] [address] Care Team Providers Care Lathmaker Name Role Phone GarciaJoseph Unavailable [phone] REASON FOR VISIT Reschedule appt Social History Sex Assigned At : Social History Observation Description Sex Assigned At Female Encounters Encounter Location Date Provider Diagnosis [facility] Ecelles Carson [address] [facility] [address] [place] [address] 01/22/2024 Joseph Garcia Plan Of Treatment No Information Progress Notes * PAUL LAMAS MDOB: 1 (23 yo F)Acc No.[id number]:01/22/2024 Patient: Gabriela PAUL COMER :2000 A ge:23 Y S ex:Female Address:[address] [place] [address] [address] [place], [address] * true * Date: Generated for Printi ng/Faxing/eTransmitting on: 0 06/06/2024 03:41 PM MAINTENANCE CRAFTSMAN
--- OUTSIDE RECORDS SUMMARY | 2024-06-06 15:43 | XMS_ITS | Clinical Summary ---
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[employer] Worker Name Role Phone ANANTH SELLERS DO Unavailable [phone] Reason for Visit and Chief Complaint referred by, visit for: Follow up visit Problems Includes: Problems addressed during this encounter and other active Problems All Visits Onset Date Resolved Date Provider Condition S tatus Bipolar Disorder Affective, Current Episode Depressed, Moderate 03/11/2023 MGAALY E MOUSER PMHNP Active Last Documented On 3 8:35AM ; [facility] 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 - Last Documented On 06/17/2023 12:02PM ; [facility] Assessments Includes: Assessments from this encounter Findings - Adjustment disorder - Last Documented On 06/17/2023 12:02PM ; [facility] Medical Equipment - Implanted Devices Includes: Current [...] 4 10:42AM By Amy Brownlee DNP ; [facility] Cowgill Carbonate ER 450 MG Oral Tablet Extended Release 03/05/2023 - 07/03/2023 Provider: MAGALY KINCAID PMHNP Diagnosis: Bipolar disorder , current episode depressed, moderate 2 tablets at bedtime by mouth Last Documented On 3 3:47PM By Magaly Kincaid PMHNP ; [facility] carBAMazepine 200 MG Oral Tablet 03/05/2023 - 07/03/2023 Provider: MAGALY KINCAID PMHNP Diagnosis: Bipolar disorder , current episode depressed, moderate One tablet twice a day Last Documented On 3 3:47PM By Magaly Kincaid PMHNP ; [facility] SEROquel 100 MG Oral Tablet 03/05/2023 - 07/03/2023 Provider: MAGALY KINCAID PMHNP Diagnosis: Bipolar disorder , current episode depressed, moderate One tablet at bed time Last Documented On 3 3:47PM By Magaly Kincaid JASONP ; [facility] buPROPion HCl ER (XL) 300 MG Oral Tablet Extended Release 24 Hour 03/05/2023 - 07/03/2023 Provider: MAGALY KINCAID PMHNP Diagnosis: Major depressv d isord, single epsd, severe w psych features One tablet daily Last Documented On 3 3:47PM By Magaly Kincaid PMHNP ; [facility] Propranolol HCl 10 MG Oral Tablet 03/05/2023 - 07/03/2023 Provider: MAGALY KINCAID HNP Diagnosis: Generalized anxi ety disorder 1 tablet twice a day by jose luis lyons as needed for anxiety Last Documented On 3 4:03PM By Magaly Kincaid PMHNP ; [facility] Medications Administered Includes: Administered Medications from this encounter No Administered Medications Recorded Results Includes: Results discussed during this encounter No Results Recorded For Specified Dates History of Present Illness Includes: History of Present Illness from this encounter INA LAMAS is a 22 year old female. - Primary Care Provider: Social History No Social History Recorded - Smoking Status Unknown Procedures and Surgical History Includes: Procedures from this encounter Procedures Code Diagnosis Performing Provider Service Location Service Date PSYCHOTHERAPY 60 MIN WITH PATIENT (CLINICAL VOICE PATHOLOGIST, POLICY CRITERIA APPLIED) 89[address] Adjustment disorder with mixed anxiety and depressed mood MEJIA JACOBSENMER INSTRUCTIONAL LEADER [facility] 06/17/2023 Last Documented On 4 8:52AM ; [facility] Medical History Includes: Medical History addressed during this encounter No Medical History Recorded Family History Includes: Family History addressed during this encounter Description Last Updated Family history unchanged 03/01/2023 Last Documented On 4 10:43AM ; [facility] Review of Systems Includes: Review [...] Active Last Documented On 4 10:11AM ; [facility] TORADOL Allergy 03/01/2023 Active Last Documented On 4 10:11AM ; [facility] Melatonin Allergy 03/01/2023 Active Last Documented On 4 10:11AM ; [facility] Latex Allergy 10/12/2019 Active Last Documented On 4 10:11AM ; [facility] Inapsine Allergy 03/01/2023 Active Last Documented On 4 10:11AM ; [facility] HYDROcodone-Acetaminophen Allergy 03/01/2023 Active Last Documented On 4 10:11AM ; [facility] COMPAZINE Allergy 03/01/2023 Active Last Documented On 4 10:11AM ; [facility] Augmentin Allergy sick to stomach 10/20/2019 Act flor Last Documented On 4 10:11AM ; [facility] Amoxicillin Allergy 03/01/2023 Active Last Documented On 4 10:11AM ; [facility] Albuterol Allergy 03/01/2023 Active Last Documented On 4 10:11AM ; [facility] Adhesive Paper Allergy 03/01/2023 Acti ve Last Documented On 4 10:11AM ; [facility] Encounters Encounter Provider Location Date Check-In Time Check-Out Time Diagnosis BEHAVIORAL HEALTH INTEGRATION FOLLOW UP MEJIA D ALEX WYATT [facility] 06/17/19 24 10:47AM 11:51AM Adjustment Disorder Insurance Includes: Active Insurance Policies Plan Name Member ID Group # Subscriber Relationship Effect flor Dates 1 - MEDICARE PART A CLAIMS/NGS [id number] PAUL LAMAS Self 2 - MEDICAID [place] MEDICARE SECOND [id number] PAUL LAMAS Self Clinical Notes Includes: Clinical Notes from this encounter * Progress note Date Encounter Last Documented by 06/17/2023 BEHAVIORAL HEALTH IN TEGRATION FOLLOW UP Last documented on 06/17/2023; 12:02 PM, MEJIA JOHNSON LCSW; [facility] Active Problems & Conditions - Bipolar Disorder [...] a day, 30 days, 3 refills - Cowgill Carbonate ER 450 MG Oral Tablet Extended [...] into it already. They broke down at [facility] and called her mom, who wouldn't [...] get her brother, who gave Covid to Paul Edwin and her baby Janice. They took the [...] Her boyfriend got a job working at [employer] as a resource navigator. Paul recently saw [...] a best friend who now lives in [place]. I was a bad influence and treated [...] positive regard, validation and emotional support from underwriter solicitation director. Paul was able to share recent experiences that caused her to feel distressed, while receiving emotional support from underwriter solicitation director. Paul was able to be purposeful in a conversation with her grandmother, when she would have previously been triggered into a [id number] response. Line Server and Paul discussed the idea that people [...]
--- OUTSIDE RECORDS SUMMARY | 2024-06-06 15:44 | XMS_ITS | Patient Health Record ---
Author Organization [facility] Address [address] [place] [address] Care Team Providers Care Pl[employer] Finishing Supervisor Name Role Phone Joseph Garcia Unavailable [phone] Migration, Provider Unavailable Unavailable Francy Roblero Unavailable [phone] Allergies Allergen (clinical drug ingredient) Drug/Non Drug Allergy documented on EMR Reaction Allergy Type Onset Date Status LATEX, NATURAL RUBBE R (uncoded) Unknown Allergy 08/21/2023 Active albuterol Albuterol Unknown Drug Allergy 08/21/2023 Active amoxicillin Amoxicillin Unknown Drug Allergy 08/21/2023 Ac tive amoxicillin / clavulanate Augmentin Unknown Drug Allergy 08/21/2023 Active Inapsine Unknown Drug Allergy 08/21/2023 Active melatonin Melatonin Unknown Drug Allergy 08/21/2023 Active Compazine Unknown Drug Allergy 08/21/2023 Active hydrocodone Hydrocodone Unknown Drug Allergy 08/21/2023 Ac tive ketorolac Ketorolac Unknown Drug Allergy 08/21/2023 Active Reason For Referral No Information Medications Medication SIG (Take, Route, Frequency, Duration) Notes Start Date End Date Status carBAMazepine 200 MG 1 tablet Oral Twice a day for 30 days Active Ondansetron 4 MG Oral 09/14/2023 Ac tive Levothyroxine Sodium 75 MCG Oral 09/14/2023 Active [place] Carbonate ER 300 MG 1 tablet Oral twice daily for 30 days Active [place] Carbonate ER 450 MG 1 tablet Oral twice daily for 30 days take with 300mg tablet Active Omeprazole 40 MG Oral 09/14/2023 Ac tive FLUTICASONE PROPIONATE 110 MCG/ACTUATION HFA AEROSOL INHALER *Reorder from [employer] for eRx and Interaction Alerts* 09/14/2023 Active Caplyta 10.5 MG TAKE 1 CAPSULE BY MOUTH DAILY for 30 Active Arnuity Ellipta 100 MCG/ACT Inhalation 09/14/2023 Active buPROPion HCl ER (XL) 300 MG 1 tablet every morning Oral Once a day for 90 days Active Propranolol HCl 20 MG TAKE 1 TABLET BY MOUTH TWICE DAILY for 30 Active Levothyroxine Sodium 50 MCG Oral 09/14/2023 Active Immunizations Vaccine Route Administration Date Status Comme nts DTaP Unknown 2000 Administered DTaP Unknown 02/10/2001 Administered DTaP Unknown 04/12/2001 Administered DTaP Unknown 01/17/2002 Administered DTaP Unknown 09/07/2005 Administered DTaP Unknown 10/08/2005 Administered Hep A, ped/adol, 2 dose Unknown 09/22/2002 Administered Hep A, ped/adol, 2 dose Unknown 11/14/2003 Administered Hep B, adolescent or pediatr ic (11-19), 3 dose schedule Unknown 2000 Administered Hep B, adolescent or pediatr ic (11-19), 3 dose schedule Unknown 2000 Administered Hib, unspecified formulation Unknown 2000 Adminis tered Hib, unspecified formulation Unknown 02/10/2001 Adminis tered Hib, unspecified formulation Unknown 01/17/2002 Adminis tered Hib-Hep B Unknown 04/12/2001 Administered HPV (human papillomavirus), quadrivalent, 3 dose schedule Unknown 12/03/2012 Administered HPV (human papillomavirus), quadrivalent, 3 dose schedule Unknown 03/30/2013 Administered HPV (human papillomavirus), quadrivalent, 3 dose schedule Unknown 11/01/2013 Administered Influenza (split), preservat flro free, 6-35 months Unknown 02/15/2007 Administered Influenza (split), preservat flor free, 6-35 months Unknown 02/13/2009 Administered Influenza (split), preservat flor free, 6-35 months Unknown 04/12/2010 Administered Influenza virus vaccine, quadrivalent (IIV4), split virus, 0.25 mL dosage Unknown 02/24/2005 Administered Influenza, unspecified formulation Unknown 02/25/2006 A dministered Influenza, unspecified formulation Unknown 03/06/2008 A dministered Influenza, unspecified formulation Unknown 02/13/2011 A dministered Influenza, unspecified formulation Unknown 12/10/2015 A dministered IPV Unknown 2000 Administered IPV Unknown 02/10/2001 Administered IPV Unknown 01/17/2002 Administered IPV Unknown 10/08/2005 Administered Meningococcal B, OMV Unknown 06/03/2017 Administered Meningococcal B, OMV Unknown 07/27/2017 Administered Meningococcal MCV4O Unknown 10/03/2016 Administered Meningococcal MCV4P Unknown 11/26/2011 Administered MMR Unknown 10/20/2001 Administered MMR Unknown 10/24/2004 Administered Novel Awycujque-[id number], preservative free Unknown 04/06/2009 Administered Novel Ovwjsjyxn-S7V1-44, preservative free Unknown 07/19/2009 Administered Novel Qrkbtxrlp-U6C7-88, preservative free Unknown 03/30/2013 Administered Novel Tnxgduwxi-R7I3-82, preservative free Unknown 04/10/2015 Administered Novel Nlvtbbzaw-T7H7-96, preservative free Unknown 06/03/2017 Administered Novel Vlplfewrf-X7N7-56, preservative free Unknown 03/26/2018 Administered Pneumococcal conjugate PCV 7 Unknown 2000 Adminis tered Pneumococcal conjugate PCV 7 Unknown 02/10/2001 Adminis tered Pneumococcal conjugate PCV 7 Unknown 04/12/2001 Adminis tered Tdap Unknown 10/01/2010 Administered Varicella Unknown 09/19/2001 Administered Varicella Unknown 10/20/2001 Administered Varicella Unknown 11/05/2006 Administered Social History Tobacco Use: Social History Observation Description Date Details (start date - stop date) Never Smoker NA - NA Sex Assigned At : Social History Observation Description Sex Assigned At Female Tobacco Control (Standard) Question Answer Notes Tobacco use: Nonsmoker AUDIT-C (Standard) Question Answer Notes Did you have a drink containing alcohol in the p ast year? No Problems Problem Type SNOMED Code ICD Code Onset Dates Problem Status W/U Status Risk Notes Problem Generalized anxiety disorder (52989839) Generalized anxiety disorder (F41.1) Active confirmed Problem Posttraumatic stress disorder (24776479) Post-traumatic stress disorder, chronic (F43.12) Active confirmed Vital Signs Heart Rate 64 /min 11/12/2023 Height-cm 165.10 cm 11/12/2023 Blood pressure diastolic 66 mm Hg 11/12/2023 Weight-kg 87.18 kg 11/12/2023 Height 65.00 in 11/12/2023 Blood pressure systolic 95 mm Hg 11/12/2023 Weight 192.2 lbs 11/12/2023 BMI 31.98 kg/m2 11/12/2023 Encounters Encounter Location Date Provider Diagnosis [facility] [id number] [place] [address] 11/24/2023 Francy Sarkaraure [facility] [address] [place] [address] 06/08/2023 Joseph Garcia Bipolar disorder, current episode mixed, unspecified F31.60 ; Generalized anxiety disorder F41.1 and Encounter for routine follow-up Z39.2 [facility] [address] [place] [address] 06/22/2023 Joseph Garcia Generalized anxiety disorder F41.1 ; Bipolar disorder, current episode mixed, unspecified F31.60 and Encounter for routine follow-up Z39.2 [facility] [address] [place] [address] 07/15/2023 Joseph Garcia Bipolar disorder, current episode mixed, unspecified F31.60 ; Generalized anxiety disorder F41.1 ; Encounter for routine follow-up Z39.2 and Drug induced akathisia G25.71 [facility] [address] [place] [address] 08/21/2023 Joseph Garcia Other group home (current) drug therapy Z79.899 ; Generalized anxiety disorder F41.1 ; Bipolar disorder, current episode depressed, severe, without psychotic features F31.4 ; Encounter for routine follow-up Z39.2 and Drug induced akathisia G25.71 [facility] [address] [place] [address] 09/14/2023 Joseph Garcia Bipolar disorder, current episode depressed, severe, without psychotic features F31.4 ; Generalized anxiety disorder F41.1 ; Other group home (current) drug therapy Z79.899 ; Encounter for routine follow-up Z39.2 and Drug induced akathisia G25.71 [facility] [address] [place] [address] 11/12/2023 Joseph Garcia Generalized anxiety disorder F41.1 ; Post-traumatic stress disorder, chronic F43.12 ; Bipolar disorder with moderate depression F31.32 and Other group home (current) drug therapy Z79.899 [facility], [facility] [address] [place] [address] 12/14/2023 Joseph Garcia [facility], [facility] [address] [place] [address] 12/25/2023 Joseph Garcia Generalized anxiety disorder F41.1 ; Post-traumatic stress disorder, chronic F43.12 ; Bipolar disorder with moderate depression F31.32 and Other group home (current) drug therapy Z79.899 [facility], [facility] [address] [place] [address] 01/22/2024 Joseph Garcia [facility], [facility] [address] [place] [address] 06/08/2023 [facility], [facility] [address] [place] [address] 06/18/2023 Provider Migration [facility], [facility] [address] [place] [address] 06/19/2023 Provider [facility], [facility] [address] [place] [address] 06/22/2023 Provider [facility], [facility] [address] [place] [address] 06/23/2023 Provider [facility], [facility] [address] [place] [address] 06/25/2023 Provider Migration [facility], [facility] [address] [place] [address] 06/26/2023 Provider [facility], [facility] [address] [place] [address] 07/09/2023 Provider [facility], [facility] [address] [place] [address] 08/02/2023 Provider [facility], [facility] [address] [place] [address] 08/04/2023 Provider [facility], [facility] [address] [place] [address] 09/11/2023 Provider [facility], [facility] [address] [place] [address] 09/12/2023 Provider Migration [facility], [facility] [address] [place] [address] 09/13/2023 Provider [facility], [facility] [address] [place] [address] 09/14/2023 Provider [facility], [facility] [address] [place] [address] 10/19/2023 [facility], [facility] [address] [place] [address] 01/11/2024 Joseph Garcia Bipolar disorder with moderate depression F31.32 [facility], [facility] [address] [place] [address] 10/27/2023 [facility], [facility] [address] [place] [address] 11/08/2023 [facility] [address] [place] [address] 11/08/2023 [facility], [facility] [address] [place] [address] 11/08/2023 [facility], [facility] [address] [place] [address] 11/09/2023 [facility], [facility] [address] [place] [address] 11/09/2023 [facility], [facility] [address] [place] [address] 11/11/2023 [facility], [facility] [address] [place] [address] 01/22/2024 Joseph Garcia Assessments Encounter Date Diagnosis (ICD Code) Assessment Notes Treatment Notes Treatment Clinical Notes Section Notes 01/11/2024 Bipolar disorder with moderate depression (ICD-10 - F31.32) 12/25/2023 Generalized anxiety disorder (ICD-10 - F41.1) She is 10 months post , she is not 1. Bipolar disorder: - Patient has been taking Carbamazepine, [place] ER, and recently started Caplyta. - Patient reported difficulty in obtaining medications and had a brief period of non-adherence. - Patient experienced increased paranoia when not taking Caplyta. Plan: - Continue current medications, including Carbamazepine 200 mg (1 tablet twice a day), [place] ER (450 and 300 mg twice a day), and Caplyta. - Monitor patient's response to Caplyta and assess for any side effects or changes in mood. 2. Anxiety and panic attacks: - Patient reported experiencing panic attacks, particularly when sitting down and doing nothing. - Patient has been taking propranolol but reported feeling fatigued and having low blood pressure. Plan: - Continue monitoring patient's anxiety and panic attacks. - Assess the need for adjustments in propranolol dosage or consider alternative medications if symptoms persist or worsen. 3. Concentration difficulties: - Patient reported difficulty concentrating on homework unless in complete silence. Plan: - Monitor patient's concentration difficulties and assess for any potential underlying causes or contributing factors. - Consider adjustments in medication or additional interventions if necessary. 5. Laboratory results: - Patient had a CMP and lithium level done at [facility] on the . - CMP results were normal, but lithium level results were not available in the patient's chart. Plan: - Request lithium level results from [facility] and review them to assess the appropriateness of the patient's current lithium dosage. - Adjust dosage if necessary based on the results. Follow-up: - Schedule a follow-up appointment to monitor the patient's progress, assess the effectiveness of the current treatment plan, and make any necessary adjustments to medications or interventions. 06/08/2023 Bipolar disorder, current episode mixed, unspecified (ICD-10 - F31.60) 06/08/2023 Generalized anxiety disorder (ICD-10 - F41.1) 06/08/2023 Encounter for routine follow-up (ICD-10 - Z39.2) 06/22/2023 Bipolar disorder, current episode mixed, unspecified (ICD-10 - F31.60) 06/22/2023 Generalized anxiety disorder (ICD-10 - F41.1) 06/22/2023 Encounter for routine follow-up (ICD-10 - Z39.2) 07/15/2023 Bipolar disorder, current episode mixed, unspecified (ICD-10 - F31.60) 07/15/2023 Generalized anxiety disorder (ICD-10 - F41.1) 07/15/2023 Drug induced akathisia (ICD-10 - G25.71) 07/15/2023 Encounter for routine follow-up (ICD-10 - Z39.2) 08/21/2023 Bipolar disorder, current episode depressed, severe, without psychotic features (ICD-10 - F31.4) 08/21/2023 Generalized anxiety disorder (ICD-10 - F41.1) 08/21/2023 Drug induced akathisia (ICD-10 - G25.71) 08/21/2023 Encounter for routine follow-up (ICD-10 - Z39.2) 08/21/2023 Other group home (current) drug therapy (ICD-10 - Z79.899) 09/14/2023 Bipolar disorder, current episode depressed, severe, without psychotic features (ICD-10 - F31.4) 09/14/2023 Generalized anxiety disorder (ICD-10 - F41.1) 09/14/2023 Drug induced akathisia (ICD-10 - G25.71) 09/14/2023 Encounter for routine follow-up (ICD-10 - Z39.2) 09/14/2023 Other group home (current) drug therapy (ICD-10 - Z79.899) 11/12/2023 Generalized anxiety disorder (ICD-10 - F41.1) She is 9 months post , she is not 1. Anxiety and Obsessive-Compulsi ve symptoms: - Patient reports significant anxiety and obsessive-compulsi ve behaviors, impacting daily functioning. - Plan: Start Caplyta 10.5 mg once daily to help with anxiety and depression symptoms. Monitor for improvement in anxiety and obsessive-compulsi ve behaviors. 2. Depression: - Patient reports difficulty getting out of bed, feeling tired, and guilt related to parenting. - Plan: Continue current medications ([place] ER 450 mg and 300 mg twice daily, Bupropion XL 300 mg daily) and start Caplyta 10.5 mg once daily. Monitor for improvement in depressive symptoms. 3. Low blood pressure: - Patient reports low blood pressure readings during the visit. - Plan: Discontinue Propranolol 20 mg twice daily due to low blood pressure and possible contribution to fatigue. Monitor blood pressure and symptoms. 4. Sleep and intrusive thoughts: - Patient reports sleeping well at night and minimal intrusive thoughts. - Plan: Continue monitoring sleep and intrusive thoughts during follow-up visits. 5. Medication side effects: - Patient reports easy bruising, possibly related to medications. - Plan: Monitor for any worsening of bruising and consider medication adjustments if necessary. 6. Labs: - Plan: Order lithium level and comprehensive metabolic panel for the patient. Monitor for any abnormalities and adjust medications accordingly. 7. Follow-up: - Schedule a follow-up appointment to assess the patient's response to Caplyta and monitor for any changes in symptoms or side effects. 11/12/2023 Post-traumatic stress disorder, chronic (ICD-10 - F43.12) She is 9 months post , she is not 1. Anxiety and Obsessive-Compulsi ve symptoms: - Patient reports significant anxiety and obsessive-compulsi ve behaviors, impacting daily functioning. - Plan: Start Caplyta 10.5 mg once daily to help with anxiety and depression symptoms. Monitor for improvement in anxiety and obsessive-compulsi ve behaviors. 2. Depression: - Patient reports difficulty getting out of bed, feeling tired, and guilt related to parenting. - Plan: Continue current medications ([place] ER 450 mg and 300 mg twice daily, Bupropion XL 300 mg daily) and start Caplyta 10.5 mg once daily. Monitor for improvement in depressive symptoms. 3. Low blood pressure: - Patient reports low blood pressure readings during the visit. - Plan: Discontinue Propranolol 20 mg twice daily due to low blood pressure and possible contribution to fatigue. Monitor blood pressure and symptoms. 4. Sleep and intrusive thoughts: - Patient reports sleeping well at night and minimal intrusive thoughts. - Plan: Continue monitoring sleep and intrusive thoughts during follow-up visits. 5. Medication side effects: - Patient reports easy bruising, possibly related to medications. - Plan: Monitor for any worsening of bruising and consider medication adjustments if necessary. 6. Labs: - Plan: Order lithium level and comprehensive metabolic panel for the patient. Monitor for any abnormalities and adjust medications accordingly. 7. Follow-up: - Schedule a follow-up appointment to assess the patient's response to Caplyta and monitor for any changes in symptoms or side effects. 12/25/2023 Post-traumatic stress disorder, chronic (ICD-10 - F43.12) She is 10 months post , she is not 1. Bipolar disorder: - Patient has been taking Carbamazepine, [place] ER, and recently started Caplyta. - Patient reported difficulty in obtaining medications and had a brief period of non-adherence. - Patient experienced increased paranoia when not taking Caplyta. Plan: - Continue current medications, including Carbamazepine 200 mg (1 tablet twice a day), [place] ER (450 and 300 mg twice a day), and Caplyta. - Monitor patient's response to Caplyta and assess for any side effects or changes in mood. 2. Anxiety and panic attacks: - Patient reported experiencing panic attacks, particularly when sitting down and doing nothing. - Patient has been taking propranolol but reported feeling fatigued and having low blood pressure. Plan: - Continue monitoring patient's anxiety and panic attacks. - Assess the need for adjustments in propranolol dosage or consider alternative medications if symptoms persist or worsen. 3. Concentration difficulties: - Patient reported difficulty concentrating on homework unless in complete silence. Plan: - Monitor patient's concentration difficulties and assess for any potential underlying causes or contributing factors. - Consider adjustments in medication or additional interventions if necessary. 5. Laboratory results: - Patient had a CMP and lithium level done at [facility] on the . - CMP results were normal, but lithium level results were not available in the patient's chart. Plan: - Request lithium level results from [facility] and review them to assess the appropriateness of the patient's current lithium dosage. - Adjust dosage if necessary based on the results. Follow-up: - Schedule a follow-up appointment to monitor the patient's progress, assess the effectiveness of the current treatment plan, and make any necessary adjustments to medications or interventions. 11/12/2023 Bipolar disorder with moderate depression (ICD-10 - F31.32) She is 9 months post , she is not 1. Anxiety and Obsessive-Compulsi ve symptoms: - Patient reports significant anxiety and obsessive-compulsi ve behaviors, impacting daily functioning. - Plan: Start Caplyta 10.5 mg once daily to help with anxiety and depression symptoms. Monitor for improvement in anxiety and obsessive-compulsi ve behaviors. 2. Depression: - Patient reports difficulty getting out of bed, feeling tired, and guilt related to parenting. - Plan: Continue current medications ([place] ER 450 mg and 300 mg twice daily, Bupropion XL 300 mg daily) and start Caplyta 10.5 mg once daily. Monitor for improvement in depressive symptoms. 3. Low blood pressure: - Patient reports low blood pressure readings during the visit. - Plan: Discontinue Propranolol 20 mg twice daily due to low blood pressure and possible contribution to fatigue. Monitor blood pressure and symptoms. 4. Sleep and intrusive thoughts: - Patient reports sleeping well at night and minimal intrusive thoughts. - Plan: Continue monitoring sleep and intrusive thoughts during follow-up visits. 5. Medication side effects: - Patient reports easy bruising, possibly related to medications. - Plan: Monitor for any worsening of bruising and consider medication adjustments if necessary. 6. Labs: - Plan: Order lithium level and comprehensive metabolic panel for the patient. Monitor for any abnormalities and adjust medications accordingly. 7. Follow-up: - Schedule a follow-up appointment to assess the patient's response to Caplyta and monitor for any changes in symptoms or side effects. 12/25/2023 Bipolar disorder with moderate depression (ICD-10 - F31.32) lithium er 450mg & 300mg bid, Caplyta 10.5mg, Carbamazepine 200mg bid, bupropion xl 300mg daily She is 10 months post , she is not 1. Bipolar disorder: - Patient has been taking Carbamazepine, [place] ER, and recently started Caplyta. - Patient reported difficulty in obtaining medications and had a brief period of non-adherence. - Patient experienced increased paranoia when not taking Caplyta. Plan: - Continue current medications, including Carbamazepine 200 mg (1 tablet twice a day), [place] ER (450 and 300 mg twice a day), and Caplyta. - Monitor patient's response to Caplyta and assess for any side effects or changes in mood. 2. Anxiety and panic attacks: - Patient reported experiencing panic attacks, particularly when sitting down and doing nothing. - Patient has been taking propranolol but reported feeling fatigued and having low blood pressure. Plan: - Continue monitoring patient's anxiety and panic attacks. - Assess the need for adjustments in propranolol dosage or consider alternative medications if symptoms persist or worsen. 3. Concentration difficulties: - Patient reported difficulty concentrating on homework unless in complete silence. Plan: - Monitor patient's concentration difficulties and assess for any potential underlying causes or contributing factors. - Consider adjustments in medication or additional interventions if necessary. 5. Laboratory results: - Patient had a CMP and lithium level done at [facility] on the . - CMP results were normal, but lithium level results were not available in the patient's chart. Plan: - Request lithium level results from [facility] and review them to assess the appropriateness of the patient's current lithium dosage. - Adjust dosage if necessary based on the results. Follow-up: - Schedule a follow-up appointment to monitor the patient's progress, assess the effectiveness of the current treatment plan, and make any necessary adjustments to medications or interventions. 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 Anxiety and Obsessive-Compulsi ve symptoms: - Patient reports significant anxiety and obsessive-compulsi ve behaviors, impacting daily functioning. - Plan: Start Caplyta 10.5 mg once daily to help with anxiety and depression symptoms. Monitor for improvement in anxiety and obsessive-compulsi ve behaviors. 2. Depression: - Patient reports difficulty getting out of bed, feeling tired, and guilt related to parenting. - Plan: Continue current medications ([place] ER 450 mg and 300 mg twice daily, Bupropion XL 300 mg daily) and start Caplyta 10.5 mg once daily. Monitor for improvement in depressive symptoms. 3. Low blood pressure: - Patient reports low blood pressure readings during the visit. - Plan: Discontinue Propranolol 20 mg twice daily due to low blood pressure and possible contribution to fatigue. Monitor blood pressure and symptoms. 4. Sleep and intrusive thoughts: - Patient reports sleeping well at night and minimal intrusive thoughts. - Plan: Continue monitoring sleep and intrusive thoughts during follow-up visits. 5. Medication side effects: - Patient reports easy bruising, possibly related to medications. - Plan: Monitor for any worsening of bruising and consider medication adjustments if necessary. 6. Labs: - Plan: Order lithium level and comprehensive metabolic panel for the patient. Monitor for any abnormalities and adjust medications accordingly. 7. Follow-up: - Schedule a follow-up appointment to assess the patient's response to Caplyta and monitor for any changes in symptoms or side effects. 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 Bipolar disorder: - Patient has been taking Carbamazepine, [place] ER, and recently started Caplyta. - Patient reported difficulty in obtaining medications and had a brief period of non-adherence. - Patient experienced increased paranoia when not taking Caplyta. Plan: - Continue current medications, including Carbamazepine 200 mg (1 tablet twice a day), [place] ER (450 and 300 mg twice a day), and Caplyta. - Monitor patient's response to Caplyta and assess for any side effects or changes in mood. 2. Anxiety and panic attacks: - Patient reported experiencing panic attacks, particularly when sitting down and doing nothing. - Patient has been taking propranolol but reported feeling fatigued and having low blood pressure. Plan: - Continue monitoring patient's anxiety and panic attacks. - Assess the need for adjustments in propranolol dosage or consider alternative medications if symptoms persist or worsen. 3. Concentration difficulties: - Patient reported difficulty concentrating on homework unless in complete silence. Plan: - Monitor patient's concentration difficulties and assess for any potential underlying causes or contributing factors. - Consider adjustments in medication or additional interventions if necessary. 5. Laboratory results: - Patient had a CMP and lithium level done at [facility] on the . - CMP results were normal, but lithium level results were not available in the patient's chart. Plan: - Request lithium level results from [facility] and review them to assess the appropriateness of the patient's current lithium dosage. - Adjust dosage if necessary based on the results. Follow-up: - Schedule a follow-up appointment to monitor the patient's progress, assess the effectiveness of the current treatment plan, and make any necessary adjustments to medications or interventions. 12/25/2023 Other 10 months post , not She is 10 months post , she is not 1. Bipolar disorder: - Patient has been taking Carbamazepine, [place] ER, and recently started Caplyta. - Patient reported difficulty in obtaining medications and had a brief period of non-adherence. - Patient experienced increased paranoia when not taking Caplyta. Plan: - Continue current medications, including Carbamazepine 200 mg (1 tablet twice a day), [place] ER (450 and 300 mg twice a day), and Caplyta. - Monitor patient's response to Caplyta and assess for any side effects or changes in mood. 2. Anxiety and panic attacks: - Patient reported experiencing panic attacks, particularly when sitting down and doing nothing. - Patient has been taking propranolol but reported feeling fatigued and having low blood pressure. Plan: - Continue monitoring patient's anxiety and panic attacks. - Assess the need for adjustments in propranolol dosage or consider alternative medications if symptoms persist or worsen. 3. Concentration difficulties: - Patient reported difficulty concentrating on homework unless in complete silence. Plan: - Monitor patient's concentration difficulties and assess for any potential underlying causes or contributing factors. - Consider adjustments in medication or additional interventions if necessary. 5. Laboratory results: - Patient had a CMP and lithium level done at [facility] on the . - CMP results were normal, but lithium level results were not available in the patient's chart. Plan: - Request lithium level results from [facility] and review them to assess the appropriateness of the patient's current lithium dosage. - Adjust dosage if necessary based on the results. Follow-up: - Schedule a follow-up appointment to monitor the patient's progress, assess the effectiveness of the current treatment plan, and make any necessary adjustments to medications or interventions. Plan Of Treatment Future Test Test Name Order Date COMPREHENSIVE METABOLIC PANEL (32082) LITHIUM (613) 11/12/2023 Insurance Providers Payer Name Payer Address Payer Phone Subscriber Number Group Number Insured Name Patient Relationship to Insured Coverage Start Date Coverage End Date Medicare-I l Medicare [address] [place] [address] [id number] GODFREY LAMASYLA Self - patient is the insured Medicaid-I l Medicaid [address] [address] [place] [address] [id number] NOA LAMASA Self - patient is the insured Medical (General) History Medical History History ICD Code Problems: Akathisia Bipolar affective disorder, current epis ode depression Bipolar affective disorder, current epis ode mixed Chronic post-traumatic stress disorder Generalized anxiety disorder Long-term current use of antipsychotic m edication Long-term drug therapy Nightmares state , Past Psychiatric History: An xiety Disorder,Panic Disorder,Phobias,PTSD,Psychotic Episode,Schizoaffective Disorder,Major Depressive Episode,Bipolar Disorder abdominal aortic aneurysm: No atrial fibrillation: No chronic fatigue syndrome: No essential tremor: No hyperlipidemia: No hypertension: No Parkinson's disease: No restless leg syndrome: No stroke: No subdural hematoma: No type 1 diabetes mellitus: No type 2 diabetes mellitus: No vitamin B12 deficiency: No vitamin D deficiency: No Surgical History Surgery Date(Month/Year) Other 08/08/2016 Tonsilectomy/adenoids 08/08/2016 Sinus surgery 12/24/2019 Any surgical history 12/24/2019
--- OUTSIDE RECORDS SUMMARY | 2024-06-06 15:44 | XMS_ITS | Clinical Summary ---
Author Organization [facility] Address [address] [place] [address] Phone Care Team Providers Care Tactical Intelligence Officer Name Role Phone ANANTH SELLERS DO Unavailable [phone] Reason for Visit and Chief Complaint TELEHEALTH Problems Includes: Problems addressed during this encounter and other active Problems All Visits Onset Date Resolved Date Provider Condition S tatus Bipolar Disorder Affective, Current Episode Depressed, Moderate 03/11/2023 KRISHNA Ange MOUSER PMHNP Active Last Documented On 3 8:35AM ; [facility] 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, Mood-congruent 03/11/2023 KRISHNA Ange MOUSE R PMHNP Active Last Documented On 3 8:35AM ; [facility] Generalized Anxiety Disorder 03/11/2023 KRISHNA E MOUSER PMHNP Active Last Documented On 3 8:35AM ; [facility] Chronic Post-traumatic Stress Disorder 03/11/2023 KRISHNA E MOUSER PMHNP Active Last Documented On 3 8:35AM ; [facility] Plan of Treatment No Plan of [...] Documented On 4 10:11AM ; [facility] TORADOL Allergy 03/01/2023 Active Last Documented On 4 10:11AM ; [facility] Melatonin Allergy 03/01/2023 Active Last Documented On 4 10:11AM ; [facility] Latex Allergy 10/12/2019 Active Last Documented On 4 10:11AM ; [facility] Inapsine Allergy 03/01/2023 Active Last Documented On 4 10:11AM ; [facility] HYDROcodone-Acetaminophen Allergy 03/01/2023 Active Last Documented On 4 10:11AM ; [facility] COMPAZINE Allergy 03/01/2023 Active Last Documented On 4 10:11AM ; [facility] Augmentin Allergy sick to stomach 10/20/2019 Act flor Last Documented On 4 10:11AM ; [facility] Amoxicillin Allergy 03/01/2023 Active Last Documented On 4 10:11AM ; [facility] Albuterol Allergy 03/01/2023 Active Last Documented On 4 10:11AM ; [facility] Adhesive Paper Allergy 03/01/2023 Acti ve Last Documented On 4 10:11AM ; [facility] Insurance Includes: Active Insurance Policies Plan Name Member ID Group # Subscriber Relationship Effect flor Dates 1 - MEDICARE PART A CLAIMS/NGS [id number] PAUL Guzman 2 - [place] MED[place] SECOND [id number] PAUL Guzman Clinical Notes Includes: Clinical Notes from this encounter No Clinical Notes Recorded
--- OUTSIDE RECORDS SUMMARY | 2024-06-06 15:44 | XMS_ITS | Clinical Summary ---
Author Organization [facility] Address [address] [place] [address] Phone Care Team Providers Care Sales Support Engineer Name Role Phone ANANTH SELLERS DO Unavailable [phone] Reason for Visit and Chief Complaint TELEHEALTH Problems Includes: Problems addressed during this encounter and other active Problems All Visits Onset Date Resolved Date Provider Condition S tatus Bipolar Disorder Affective, Current Episode Depressed, Moderate 03/11/2023 KRISHNA Ange MOUSER PMHNP Active Last Documented On 3 8:35AM ; [facility] 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, Mood-congruent 03/11/2023 KRISHNA Ange MOUSE R PMHNP Active Last Documented On 3 8:35AM ; [facility] Generalized Anxiety Disorder 03/11/2023 KRISHNA E MOUSER PMHNP Active Last Documented On 3 8:35AM ; [facility] Chronic Post-traumatic Stress Disorder 03/11/2023 KRISHNA E MOUSER PMHNP Active Last Documented On 3 8:35AM ; [facility] Plan of Treatment No Plan of Treatment [...] Active Last Documented On 4 10:11AM ; [facility] TORADOL Allergy 03/01/2023 Active Last Documented On 4 10:11AM ; [facility] Melatonin Allergy 03/01/2023 Active Last Documented On 4 10:11AM ; [facility] Latex Allergy 10/12/2019 Active Last [...] 4 10:11AM ; [facility] Insurance Includes: Active Insurance Policies Plan Name Member ID Group # Subscriber Relationship Effect flor Dates 1 - MEDICARE PART A CLAIMS/NGS [id number] PAUL Guzman 2 - [place] MED[place] SECOND [id number] PAUL Guzman Clinical Notes Includes: Clinical Notes from this encounter No Clinical Notes Recorded
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
--- OUTSIDE RECORDS SUMMARY | 2024-06-06 15:44 | XMS_ITS | CCD ---
Author Name Interface, [id number] [address] [facility] [place] [address] Care Team Providers Care Wool Fleece Grader Name Role Phone Interface, [email or web address] Unavailable Unavail able Reason for Visit Social History
--- OUTSIDE RECORDS SUMMARY | 2024-06-06 15:44 | XMS_ITS ---
Care Plan - [facility] Created on: June 06, 2024 PAUL LAMAS : 2000 Sex: Female Author Organization [facility] Address [address] [place] [address] Phone Care Team Providers Care Director Of Blood Name Role Phone ANANTH SELLERS DO Unavailable [phone]
--- OUTSIDE RECORDS SUMMARY | 2024-06-06 15:44 | XMS_ITS | Clinical Summary ---
Author Organization [facility] Address [address] [place] [address] Phone Care Team Providers Care Undraped Artist Model Name Role Phone ANANTH SELLERS DO Unavailable [phone] Reason for Visit and Chief Complaint The Chief Complaint is: sore/swollen throat, runny nose, nausea. 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, Mood-congruent 03/11/2023 KRISHNA E MOUSE R PMHNP Active Last Documented On 3 8:35AM ; [facility] Generalized Anxiety Disorder 03/11/2023 KRISHNA E MOUSER PMHNP Active Last Documented On 3 8:35AM ; [facility] Chronic Post-traumatic Stress Disorder 03/11/2023 KRISHNA E MOUSER PMHNP Active Last Documented On 3 8:35AM ; [facility] Plan of Treatment - Return to the clinic if condition worsens or new symptoms arise - Last Documented On 08/06/2023 10:29AM ; [facility] - Patient will call for appointment as needed - Last Documented On 08/06/2023 10:29AM ; [facility] Instructions to patient Intervention and counseling on cessation of tobacco use Last Documented On 4 10:11AM ; [facility] Assessments Includes: Assessments from this encounter Findings - [J06.9 - Acute upper respiratory infection, unspecified] Upper respiratory infection - Last Documented On 08/06/2023 10:29AM ; [facility] Instructions Includes: Instructions from this encounter Instructions to patient Intervention and counseling on cessation of tobacco use Last Documented On 4 10:11AM ; [facility] Medical Equipment - Implanted Devices Includes: Current Devices No Medical Equipment Recorded Medications Includes: Medications discussed during this encounter and other current Medications New / Renewed during this visit AMY BROWNLEE DNP on 08/06/2023 guaiFENesin ER 600 MG Oral Tablet Extended Release 12 Hour Provider: AMY Mcallister CUT ROLL MACHINE OFFBEARER 15 day supply: 30 tablet, 0 refills Diagnosis: Acute upper respiratory infection, unspecified One tablet twice a day PO MA N for congestion Pharmacy: [address], [phone] - Last Documented On 10:42AM By Amy Brownlee DNP ; [facility] Medications Administered Includes: Administered Medications from this encounter No Administered Medications Recorded Vital Signs Includes: Vital Signs from this encounter Vital Name 08/06/2023 10:10A Pulse Rate-Sitting (bpm) 105 Temp-Oral (F) 98.5 Height (in) 63 Weight (lb) 190 Body Mass Index 33.7 Body Surface Area 1.9 Oxygen Saturation (%) 98 Last Documented: On 08/06/2023 10:11A M ; [facility] Results Includes: Results discussed during this [...] 08/06/2023 Last Documented On 4 10:29AM ; [facility] Smoking Status Unknown Procedures and Surgical History Includes: Procedures from this encounter Procedures Code Diagnosis Performing Provider Service L ocation Service Date SARS-CO,SARS-COV-2, INFLUENZA A/B TEST (CLIA WAIVED) 06615 Acute cough AMY BROWNLEE [facility] 08/06/2023 Last Documented On 4 4:46PM ; [facility] STREP TEST SCREENING (CLIA WAIVED) 00775 Acute pharyngitis, unspecified AMY BROWNLEE [facility] 08/06/2023 Last Documented On 4 4:46PM ; [facility] intervention and counseling on cessation of toba information technology account manager use 4000F Last Documented On 4 10:11AM ; [facility] use of tobacco assessment performed 1000F Last Documented On 4 10:11AM ; [facility] review of medications documented 1160F Last Documented On 4 10:11AM ; [facility] Clinical summary provided to patient Last Documented On 4 10:26AM ; [facility] Medical History Includes: Medical History addressed [...] Last Documented On 4 10:11AM ; [facility] TORADOL Allergy 03/01/2023 Active Last Documented On 4 10:11AM ; [facility] Melatonin Allergy 03/01/2023 Active Last Documented On 4 10:11AM ; [facility] Latex Allergy 10/12/2019 Active Last Documented On 4 10:11AM ; [facility] Inapsine Allergy 03/01/2023 Active Last Documented On 4 10:11AM ; [facility] HYDROcodone-Acetaminophen Allergy 03/01/2023 Active Last Documented On 4 10:11AM ; [facility] COMPAZINE Allergy 03/01/2023 Active Last Documented On 4 10:11AM ; [facility] Augmentin Allergy sick to stomach 10/20/2019 Act flor Last Documented On 4 10:11AM ; [facility] Amoxicillin Allergy 03/01/2023 Active Last Documented On 4 10:11AM ; [facility] Albuterol Allergy 03/01/2023 Active Last Documented On 4 10:11AM ; [facility] Adhesive Paper Allergy 03/01/2023 Acti ve Last Documented On 4 10:11AM ; [facility] Encounters Encounter Provider Location Date Check-In Time Check-Out Time Diagnosis COVID SICK VISIT- ESTABLISHED PATIENT AMY BROWNLEE DNP [facility] [facility] 08/06/19 24 9:57AM 10:26AM Upper Respiratory Infection Insurance Includes: Active Insurance Policies Plan Name Member ID Group # Subscriber Relationship Effect flor Dates 1 - MEDICARE PART A CLAIMS/NGS [id number] JO Guzman 2 - [place] MED[place] SECOND [id number] JO Guzman Clinical Notes Includes: Clinical Notes [...]
--- OUTSIDE RECORDS SUMMARY | 2024-06-06 15:44 | XMS_ITS | CCD ---
Author Name Interface, [id number] [address] [facility] [place] [address] Care Team Providers Care Exercise Manager Name Role Phone Interface, [email or web address] Unavailable Unavail able Reason for Visit Social History
--- OUTSIDE RECORDS SUMMARY | 2024-06-06 15:45 | XMS_ITS ---
Author Organization [facility] Address [address] [place] [address] Phone Care Team Providers Care Telegraph Installer Name Role Phone ANANTH SELLERS DO Unavailable [phone] Problems Includes: Active, inactive, and resolved Problems All Visits Onset Date Resolved Date Provider Condition S tatus Bipolar Disorder Affective, Current Episode Depressed, Moderate 03/11/2023 MAGALY E MOUSER PMHNP Active Last Documented On 3 8:35AM ; 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 Plan of Treatment Findings Encounter Date Ordered patient will call fo r appointment as needed COVID SICK VISIT- ESTABLISHED PATIENT with AMY Eric KEM DNP 08/06/2023 Last Documented On 4 10:29AM ; [facility] Ordered return to the clinic if condition worsens or new symptoms arise COVID SICK VISIT- ESTABLISHED PATIENT with AMY BROWNLEE DNP 08/06/2023 Last Documented On 4 10:29AM ; [facility] Ordered patient will call fo r appointment as needed COVID SICK VISIT- ESTABLISHED PATIENT with ADAMA ACHARYA [facility] 03/01/2023 Last Documented On 3 11:50AM ; [facility] Ordered return to the clinic if condition worsens or new symptoms arise COVID SICK VISIT- ESTABLISHED PATIENT with ADAMA ACHARYA [facility] 03/01/2023 Last Documented On 3 11:50AM ; [facility] Go to the emergency room if condition worsens WALK-IN CLINIC SICK VISIT with ADAMA ACHARYA [facility] 10/17/2019 Last Documented On 0 10:34AM ; [facility] Ordered return to the clinic if condition worsens or new symptoms arise WALK-IN CLINIC SICK VISIT with ADAMA ACHARYA [facility] 10/17/2019 Last Documented On 0 10:34AM ; [facility] Pt to use prescription as or dered. Purpose of and use of medication discussed. WALK-IN CLINIC SICK VISIT with HILDA JOHNSON COPY COORDINATOR[facility] 10/12/2019 Last Documented On 0 4:53PM ; [facility] Continue current medication WALK-IN CLIN IC SICK VISIT with HILDA JOHNOSN COPY COORDINATOR-C 10/12/2019 Last Documented On 0 4:53PM ; [facility] Referrals To Diagnosis Counselor MAGALY KINCAID [facility] - [facility] - [address] [place] [address] - Bipolar disorder, current episode depressed, moderate Note: new Mom, with no suppo rt, history of bipolar Last Documented On 3 9:40AM ; [facility] Instructions to patient Intervention and counseling on cessation of tobacco use Last Documented On 4 10:11AM ; [facility] Instructions for patient Last Documented On 3 11:49AM ; [facility] Intervention and counseling on cessation of tobacco use Last Documented On 3 11:32AM ; [facility] Go to the emergency room if condition worsens Last Documented On 0 10:29AM ; [facility] Watch for signs/symptoms of infection, return to the clinic if seen Last Documented On 0 10:29AM ; [facility] Education and Decision Aids were provided during visit for: Patient education about adve rse reactions to medication Last Documented On 3 1:30PM ; [facility] Reviewed side effects and Ri sks/Benefits analysis Last Documented On 3 1:30PM ; [facility] Assessments Includes: Assessments for all patient encounters Findings Encounter Date Upper respiratory infection COVID SICK V ISIT- ESTABLISHED PATIENT with AMY BROWNLEE DNP 08/06/2023 Last Documented On 4 10:29AM ; [facility] [Adjustment disorder with mi xed anxiety and depressed mood] adjustment disorder BEHAVIORAL HEALTH INTEGRATION FOLLOW UP with MEJIA D ALEX [facility] 06/17/2023 Last Documented On 4 12:02PM ; [facility] [Other specified anxiety dis orders] depression with anxiety BEHAVIORAL HEALTH INTEGRATION FOLLOW UP with MEJIA D ALEX TENT ASSEMBL[employer] 05/11/2023 Last Documented On 4 12:04PM ; [facility] [Other specified anxiety dis orders] depression with anxiety BEHAVIORAL HEALTH INTEGRATION ESTABLISHED with MEJIA D ALEX [facility] 04/09/2023 Last Documented On 3 3:30PM ; [facility] [F31.32 - Bipolar disorder, current episode depressed, moderate] bipolar affective disorder, current episode depressed, moderate PSYCH NEW PATIENT EXAM 18 YEARS AND OLDER with MAGALY E MOUSER [facility] 03/05/2023 Last Documented On 3 8:11PM ; [facility] [F32.3 - Major depressive di sorder, single episode, severe with psychotic features] severe single episode major depression with psychotic features, mood-congruent PSYCH NEW PATIENT EXAM 18 YEARS AND OLDER with MAGALY E MOUSER PMHNP 03/05/2023 Last Documented On 3 8:11PM ; [facility] Chronic post-traumatic stress disorder P SYCH NEW PATIENT EXAM 18 YEARS AND OLDER with MAGALY E MOUSER PMHNP 03/05/2023 Last Documented On 3 8:11PM ; [facility] Generalized anxiety disorder PSYCH NEW P ATIENT EXAM 18 YEARS AND OLDER with MAGALY E MOUSER PMHNP 03/05/2023 Last Documented On 3 8:11PM ; [facility] Acute upper respiratory infection COVID SICK VISIT- ESTABLISHED PATIENT with ADAMA ACHARYA [facility] 03/01/2023 Last Documented On 3 11:50AM ; [facility] Multiple nonvenomous insect bites WALK-I N CLINIC SICK VISIT with AMY Tamie MCGARRY COPY COORDINATOR-C 10/20/2019 Last Documented On 0 9:58AM ; [facility] Gastroenteritis WALK-IN CLINIC SICK VISIT with Vladislav ACHARYA [facility] 10/17/2019 Last Documented On 0 10:34AM ; [facility] Instructions Includes: Instructions for all patient encounters Instructions to patient Intervention and counseling on cessation of tobacco use Last Documented On 4 10:11AM ; [facility] Instructions for patient Last Documented On 3 11:49AM ; [facility] Intervention and counseling on cessation of tobacco use Last Documented On 3 11:32AM ; [facility] Go to the emergency room if condition worsens Last Documented On 0 10:29AM ; [facility] Watch for signs/symptoms of infection, return to the clinic if seen Last Documented On 0 10:29AM ; [facility] Education and Decision Aids were provided during visit for: Patient education about adve rse reactions to medication Last Documented On 3 1:30PM ; [facility] Reviewed side effects and Ri sks/Benefits analysis Last Documented On 3 1:30PM ; [facility] Medical Equipment - Implanted Devices [...] 4 10:42AM By Amy Brownlee DNP ; [facility] [place] Carbonate ER 450 MG Oral Tablet Extended Release 03/05/2023 - 07/03/2023 Provider: [facility] Diagnosis: Bipolar disorder , current episode depressed, moderate 2 tablets at bedtime by mouth Last Documented On 3 3:47PM By Magaly Kincaid PMHNP ; [facility] carBAMazepine 200 MG Oral Tablet 03/05/2023 - 07/03/2023 Provider: MAGALY KINCAID [facility] Diagnosis: Bipolar disorder , current episode depressed, moderate One tablet twice a day Last Documented On 3 3:47PM By Magaly Kincaid PMHNP ; [facility] SEROquel 100 MG Oral Tablet 03/05/2023 - 07/03/2023 Provider: MAGALY KINCAID PMHNP Diagnosis: Bipolar disorder , current episode depressed, moderate One tablet at bed time Last Documented On 3 3:47PM By Magaly Kincaid HNP ; [facility] buPROPion HCl ER (XL) 300 MG Oral Tablet Extended Release 24 Hour 03/05/2023 - 07/03/2023 Provider: MAGALY KINCAID PMHNP Diagnosis: Major depressv d isord, single epsd, severe w psych features One tablet daily Last Documented On 3 3:47PM By Magaly Kincaid PMHN ; [facility] Propranolol HCl 10 MG Oral Tablet 03/05/2023 - 07/03/2023 Provider: MAGALY KINCAID JASON Diagnosis: Generalized anxi ety disorder 1 tablet twice a day by moama lyons as needed for anxiety Last Documented On 3 4:03PM By Magaly Kincaid PMHN ; [facility] Triamcinolone Acetonide 0.1% External Cream 10/20/2019 - 03/01/2023 Provider: AMY MCGARRY COPY COORDINATOR[facility] Diagnosis: Bit/stung by nonvenom insect & oth nonvenom arthropods, init Apply twice a day Last Documented On 3 11:32AM By Cierra DAWN ; [facility] Ondansetron 4 MG Oral Tablet Disintegrating 10/17/2019 - 03/01/2023 Provider: ADAMA ACHARYA [facility] Diagnosis: Nausea with vomi ting, unspecified 1 every 6 hours as needed Last Documented On 3 11:33AM By CIERRA DAWN ; [facility] Amoxicillin-Pot Clavulanate 875-125 MG Oral Tablet 10/12/2019 - 10/20/2019 Provider: HILDA MUNOZ Diagnosis: Acute frontal sinusitis, unspecified One tablet twice a day for 10 days Last Documented On 10/20/2019 9:46AM By LEXI DAWN ; [facility] Medications Administered Includes: Administered Medications in patient's chart No Administered Medications Recorded Vital Signs Includes: Vital Signs from 06/06/2023 through 06/06/2024 Vital Name 08/06/2023 10:10A Pulse Rate-Sitting (bpm) 105 Temp-Oral (F) 98.5 Height (in) 63 Weight (lb) 190 Body Mass Index 33.7 Body Surface Area 1.9 Oxygen Saturation (%) 98 Last Documented: On 08/06/2023 10:11A M ; [facility] Results Includes: Results from 06/06/2023 through 06/06/2024 Group A strep [facility] Ordered by AMY BROWNLEE DNP on 02/2024 Collected: Reported: 08/06/2023 10:13 Last Documented On 4 10:23AM ; [facility] All test results are final unless otherw ise noted. Rapid Strep neg N (Normal) Last Documented On 4 10:23AM ; [facility] LOT # AND EXP. DATE [id number] 02/25/26 N (Normal) Last Documented On 4 10:23AM ; [facility] INT. QC ACCEPTABLE? yes N (Normal) Last Documented On 4 10:23AM ; [facility] SARS COVID-19 FLU A & B [facility] Ordered by AMY BROWNLEE DNP on 02/2024 Collected: Reported: 08/06/2023 10:23 Last Documented On 4 10:23AM ; [facility] All test results are final unless otherw ise noted. COVID neg N (Normal) Last Documented On 4 10:23AM ; [facility] INFLUENZA A neg (Negative) N (Normal) Last Documented On 4 10:23AM ; [facility] INFLUENZA B neg (negative) N (Normal) Last Documented On 4 10:23AM ; [facility] INT. QC ACCEPTABLE? yes N (Normal) Last Documented On 4 10:23AM ; [facility] LOT # & EXP. DATE [id number] 04/14/24 N (Normal) Last Documented On 4 10:23AM ; [facility] History of Present Illness History of Present Illness not supported for this document type No History of Present Illness Recorded Social History Description Last Updated Tobacco non-user 08/06/2023 Last Documented On 4 10:29AM ; [facility] No family problems 03/05/2023 Last Documented On 3 8:11PM ; [facility] No recent emotional stress 03/05/2023 Last Documented On 3 8:11PM ; [facility] Non-smoker 10/12/2019 Last Documented On 0 4:53PM ; [facility] Smoking Status Unknown Procedures and Surgical History Includes: Procedures from 06/06/2023 through 06/06/2024 Procedures Code Diagnosis Performing Provider Service L ocation Service Date SARS-CO,SARS-COV-2, INFLUENZA A/B TEST (CLIA WAIVED) 24965 Acute cough AMY BROWNLEE [facility] 08/06/2023 Last Documented On 4 4:46PM ; [facility] STREP TEST SCREENING (CLIA WAIVED) 52850 Acute pharyngitis, unspecified AMY BROWNLEE [facility] 08/06/2023 Last Documented On 4 4:46PM ; [facility] PSYCHOTHERAPY 60 MIN WITH PATIENT (CLINICAL BARREL COOPER, POLICY CRITERIA APPLIED) 80209 Adjustment disorder with mixed anxiety and depressed mood [facility] 06/17/2023 Last Documented On 4 8:52AM ; [facility] Medical History Includes: Medical History in patient's chart Description Last Updated Not taking OTC medications 10/12/2019 Last Documented On 0 4:53PM ; [facility] Family History Includes: Family History in patient's chart Description Last Updated Family history unchanged 03/01/2023 Last Documented On 3 11:50AM ; [facility] Review of Systems Review of Systems not [...] Active Last Documented On 4 10:11AM ; [facility] TORADOL Allergy 03/01/2023 Active Last Documented On 4 10:11AM ; [facility] Melatonin Allergy 03/01/2023 Active Last Documented On 4 10:11AM ; [facility] Latex Allergy 10/12/2019 Active Last Documented On 4 10:11AM ; [facility] Inapsine Allergy 03/01/2023 Active Last Documented On 4 10:11AM ; [facility] HYDROcodone-Acetaminophen Allergy 03/01/2023 Active Last Documented On 4 10:11AM ; [facility] COMPAZINE Allergy 03/01/2023 Active Last Documented On 4 10:11AM ; [facility] Augmentin Allergy sick to stomach 10/20/2019 Act flor Last Documented On 4 10:11AM ; [facility] Amoxicillin Allergy 03/01/2023 Active Last Documented On 4 10:11AM ; [facility] Albuterol Allergy 03/01/2023 Active Last Documented On 4 10:11AM ; [facility] Adhesive Paper Allergy 03/01/2023 Acti ve Last Documented On 4 10:11AM ; [facility] Encounters Includes: Encounters from 06/06/2023 through 06/06/2024 Encounter Provider Location Date Check-In Time Check-Out Time Diagnosis COVID SICK VISIT- ESTABLISHED PATIENT AMY BROWNLEE DNP [facility] 08/06/19 24 9:57AM 10:26AM Upper Respiratory Infection BEHAVIORAL HEALTH INTEGRATION FOLLOW UP MEJIA WILLARDW [facility] 06/17/19 24 10:47AM 11:51AM Adjustment Disorder Insurance Includes: Active Insurance Policies Plan Name Member ID Group # Subscriber Relationship Effect flor Dates 1 - MEDICARE PART A CLAIMS/NGS [id number] PAUL LAMAS Self 2 - MED[place] MEDICARE SECOND [id number] PAUL LAMAS Self Clinical Notes Includes: Signed Clinical Notes starting from 05/16/2022 * Progress note Date Encounter Last Documented by 08/06/2023 COVID SICK VISIT- ESTABLISHED GREGORY HUERTA Last documented on 08/06/2023; 10:29 AM, AMY BROWNLEE DNP; [facility] Chief Complaint The Chief Complaint [...] Last Documented by 06/17/2023 [facility] Last documented on 06/17/2023; 12:02 PM, MEJIA JOHNSON LCSW; [facility] Active Problems & Conditions [...] a day, 30 days, 3 refills - [place] Carbonate ER 450 MG Oral Tablet Extended [...] into it already. They broke down at [facility] and called her mom, who wouldn't be [...] Her boyfriend got a job working at [employer] as a resource navigator. Paul recently saw [...] a best friend who now lives in [place]. I was a bad influence and treated [...] positive regard, validation and emotional support from radio script writer. Paul was able to share recent experiences that caused her to feel distressed, while receiving emotional support from radio script writer. Paul was able to be purposeful in a conversation with her grandmother, when she would have previously been triggered into a [id number] response. Route Clerk and Paul discussed the idea that people [...]
--- OUTSIDE RECORDS SUMMARY | 2024-06-06 15:45 | XMS_ITS | Clinical Summary ---
Author Organization [facility] Address [address] [place] [address] Phone Care Team Providers Care Cap Maker Name Role Phone ANANTH SELLERS DO Unavailable [phone] Reason for Visit and Chief Complaint referred by, visit for: Follow up visit Problems Includes: Problems addressed during this encounter and other active Problems All Visits Onset Date Resolved Date Provider Condition S tatus Bipolar Disorder Affective, Current Episode Depressed, Moderate 03/11/2023 MAGALY E MOUSER PMHNP Active Last Documented On 3 8:35AM ; [facility] 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 Plan of Treatment Client will continue to monitor thoughts, feelings, and triggers, utilizing coping skills and resources as needed. - Last Documented On 06/17/2023 12:02PM ; [facility] Assessments Includes: Assessments from this encounter Findings - Adjustment disorder - Last Documented On 06/17/2023 12:02PM ; [facility] Medical Equipment - Implanted Devices Includes: Current [...] 4 10:42AM By Amy Brownlee DNP ; [facility] [place] Carbonate ER 450 MG Oral Tablet Extended Release 03/05/2023 - 07/03/2023 Provider: MAGALY KINCAID PMHNP Diagnosis: Bipolar disorder , current episode depressed, moderate 2 tablets at bedtime by mouth Last Documented On 3 3:47PM By Magaly Kincaid PMHNP ; [facility] carBAMazepine 200 MG Oral Tablet 03/05/2023 - 07/03/2023 Provider: MAGALY KINCAID PMHNP Diagnosis: Bipolar disorder , current episode depressed, moderate One tablet twice a day Last Documented On 3 3:47PM By Magaly Kincaid PMHNP ; [facility] SEROquel 100 MG Oral Tablet 03/05/2023 - 07/03/2023 Provider: MAGALY KINCAID PMHNP Diagnosis: Bipolar disorder , current episode depressed, moderate One tablet at bed time Last Documented On 3 3:47PM By Magaly Kincaid JASONP ; [facility] buPROPion HCl ER (XL) 300 MG Oral Tablet Extended Release 24 Hour 03/05/2023 - 07/03/2023 Provider: MAGALY KINCAID PMHNP Diagnosis: Major depressv d isord, single epsd, severe w psych features One tablet daily Last Documented On 3 3:47PM By Magaly Kincaid PMHNP ; [facility] Propranolol HCl 10 MG Oral Tablet 03/05/2023 - 07/03/2023 Provider: MAGALY KINCAID HNP Diagnosis: Generalized anxi ety disorder 1 tablet twice a day by jose luis lyons as needed for anxiety Last Documented On 3 4:03PM By Magaly Kincaid PMHNP ; [facility] Medications Administered Includes: Administered Medications [...] Date PSYCHOTHERAPY 60 MIN WITH PATIENT (CLINICAL CARPENTER REFRIGERATOR, POLICY CRITERIA APPLIED) 22109 Adjustment disorder with mixed anxiety and depressed mood MEJIA JACOBSENMER FURNACE FEEDER [facility] 06/17/2023 Last Documented On 4 8:52AM ; [facility] Medical History Includes: Medical History addressed during this encounter No Medical History Recorded Family History Includes: Family History addressed during this encounter Description Last Updated Family history unchanged 03/01/2023 Last Documented On 4 10:43AM ; [facility] Review of Systems Includes: Review of Systems [...] Active Last Documented On 4 10:11AM ; [facility] TORADOL Allergy 03/01/2023 Active Last Documented On 4 10:11AM ; [facility] Melatonin Allergy 03/01/2023 Active Last Documented On 4 10:11AM ; [facility] Latex Allergy 10/12/2019 Active Last Documented On 4 10:11AM ; [facility] Inapsine Allergy 03/01/2023 Active Last Documented On 4 10:11AM ; [facility] HYDROcodone-Acetaminophen Allergy 03/01/2023 Active Last Documented On 4 10:11AM ; [facility] COMPAZINE Allergy 03/01/2023 Active Last Documented On 4 10:11AM ; [facility] Augmentin Allergy sick to stomach 10/20/2019 Act flor Last Documented On 4 10:11AM ; [facility] Amoxicillin Allergy 03/01/2023 Active Last Documented On 4 10:11AM ; [facility] Albuterol Allergy 03/01/2023 Active Last Documented On 4 10:11AM ; [facility] Adhesive Paper Allergy 03/01/2023 Acti ve Last Documented On 4 10:11AM ; [facility] Encounters Encounter Provider Location Date Check-In Time Check-Out Time Diagnosis BEHAVIORAL HEALTH INTEGRATION FOLLOW UP MEJIA D ALEX WYATT [facility] 06/17/19 24 10:47AM 11:51AM Adjustment Disorder Insurance Includes: Active Insurance Policies Plan Name Member ID Group # Subscriber Relationship Effect flor Dates 1 - MEDICARE PART A CLAIMS/NGS [id number] PAUL LAMAS Self 2 - [place] MEDICARE SECOND [id number] PAUL LAMAS Self Clinical Notes Includes: Clinical Notes from this encounter * Progress note Date Encounter Last Documented by 06/17/2023 BEHAVIORAL HEALTH IN TEGRATION FOLLOW UP Last documented on 06/17/2023; 12:02 PM, MEJIA JOHNSON LCSW; [facility] Active Problems & Conditions - Bipolar Disorder [...] a day, 30 days, 3 refills - [place] Carbonate ER 450 MG Oral Tablet Extended [...] into it already. They broke down at [facility] and called her mom, who wouldn't [...] Her boyfriend got a job working at [employer] as a resource navigator. Paul recently saw [...] a best friend who now lives in [place]. I was a bad influence and treated [...] positive regard, validation and emotional support from feature writer. Paul was able to share recent experiences that caused her to feel distressed, while receiving emotional support from feature writer. Paul was able to be purposeful in a conversation with her grandmother, when she would have previously been triggered into a [id number] response. Ethylbenzene Converter Operator and Paul discussed the idea that people [...]
[2024-06-06 15:55] VITALS: BP 138/57; PULSE 86; RESP 20; TEMP 37.1; O2SAT 100
--- NOTE | 2024-06-06 16:06 | ED.URI ---
HPI - URI/Sore Throat General Chief Complaint: Upper Respiratory Infection Stated Complaint: cough/nose Time Seen by Provider: 06/06/24 16:06 Source: patient Mode of arrival: ambulatory Limitations: no limitations History of Present Illness HPI Narrative: 12th presented for complaint of cough, nasal congestion drainage. States the cough is pain and makes it hard to breathe during coughing fits. Denies shortness of breath, wheezing, nausea vomiting, diarrhea, fevers or chills. She does not take any venb-tob-atjjrxq medication for the symptoms. Related Data Home Medications ?Medication ?Instructions ?Recorded ?Confirmed ?Last Taken ?Type bupropion HCl 300 mg 24 hr tablet, 300 mg PO DAILY 05/30/22 03/31/24 Unknown History extended release levothyroxine 75 mcg tablet 75 mcg PO DAILY 05/30/22 03/31/24 Unknown History omeprazole 40 mg capsule,delayed 40 mg PO DAILY 05/30/22 03/31/24 Unknown History release carbamazepine 200 mg tablet 200 mg PO BID 02/11/23 03/31/24 Unknown History lithium carbonate 300 mg 300 mg PO DAILY 11/27/23 03/31/24 Unknown History tablet,extended release lithium carbonate 450 mg 450 mg PO DAILY 11/27/23 03/31/24 Unknown History tablet,extended release lumateperone 10.5 mg capsule 10.5 mg PO DAILY 11/27/23 03/31/24 Unknown History (Caplyta) propranolol 20 mg tablet 20 mg PO DAILY 11/27/23 03/31/24 Unknown History Allergies Allergy/AdvReac Type Severity Reaction Status Date / Time cinnamon Allergy Severe Swelling Verified 03/31/24 09:35 of Lip/Tongue/Throat latex Allergy Mild Hives Verified 03/31/24 09:35 albuterol AdvReac Severe Anaphylaxis Verified 03/31/24 09:35 banana AdvReac Severe Anaphylaxis Verified 03/31/24 09:35 adhesive tape AdvReac Mild Hives Verified 03/31/24 09:35 amoxicillin AdvReac Mild Nausea and Verified 03/31/24 09:35 Vomiting grape flavor AdvReac Mild Nausea and Verified 03/31/24 09:35 Vomiting hydrocodone (From [place]) AdvReac Mild Nausea and Verified 03/31/24 09:35 Vomiting prochlorperazine (From AdvReac Mild Anxiety Verified 03/31/24 09:35 Compazine) Review of Systems Review of Systems: per HPI All systems reviewed & are unremarkable except as noted in HPI and below [facility] Past Medical History Medical History COVID-14 January 2020 Deviated septum Panic disorder Borderline personality disorder Bipolar disorder Depression Anxiety Surgical History Surgical History H/O nasal septoplasty Hx of tonsillectomy No significant past surgical history Family History Family History Father Schizophrenia Mother Bipolar disorder Social History Social History Smoking status: Never smoker Alcohol intake: never Substance use: never Living arrangements: alone Occupation/Education: occupation Additional occupation/education comments: works at [email or web address] Gender identity (if verbalized by the patient): Female Sexual Orientation (if Verbalized by the Patient): Straight or Heterosexual Spiritual care concerns: No Comments At time of signature, I have reviewed and agree with nursing past medical, surgical, social and family history unless otherwise noted. Please see nursing chart for further information. There is no relevant family history pertinent to the presenting complaint Exam Narrative: GENERAL: Well-appearing, in no acute distress. EYES: EOMI. No redness or drainage. Conjunctivae normal. ENT: Mucous membranes pink and moist. Nasal congestion and rhinorrhea. TMs normal bilaterally. Throat normal. Uvula midline. NECK: Normal AROM. Supple. CHEST: No respiratory distress. lungs clear to all vaughn. HEART: Regular rate and rhythm. No murmur appreciated. SKIN: Warm, dry, no rash. Capillary refill normal. Normal skin turgor. NEURO: Alert and oriented x3. Gait steady. PSYCH: Normal affect. Course Course Emergency Course: Patient is aware of diagnosis, understands and agrees to treatment plan. Anticipatory guidance given. Patient agrees to follow-up as directed and is aware of reasons to seek care at the emergency department. Portions of this record may have been created with voice recognition software Level of Care: Express Care Visit Vital Signs Vital signs: Vital Signs Temperature 98.8 F 06/06/24 15:55 Pulse Rate 86 02/10/25 15:55 Respiratory Rate 20 06/06/24 15:55 Blood Pressure 138/57 L 06/06/24 15:55 Pulse Oximetry 100 06/06/24 15:55 Oxygen Delivery Room Air 06/06/24 15:55 Temperature 98.8 F 06/06/24 15:55 Pulse Rate 86 06/06/24 15:55 Respiratory Rate 20 06/06/24 15:55 Blood Pressure 138/57 L 06/06/24 15:55 Pulse Oximetry 100 06/06/24 15:55 Oxygen Delivery Room Air 06/06/24 15:55 MDM - URI/Sore Throat MDM Narrative Medical decision making narrative: Discussed physical exam findings. Advised supportive measures and signs/symptoms to go to the ER. Pt is appropriate for outpt treatment and f/u. Differential Diagnosis Differential diagnosis: Likely upper respiratory infection, sinusitis, viral infection, bronchitis and pharyngitis Discharge Plan Discharge Clinical Impression: Bronchitis Patient Disposition: Home, Self-Care Condition: Stable Instructions: Antibiotic Form, Acute Bronchitis (ED) Additional Instructions: Acute bronchitis can be contagious because it is usually caused by infection with a virus or bacteria. It is usually for a few days but you can be contagious for up to one week. Avoid crowds until you do not have a fever and symptoms are improved Take medication as directed Recommend Flonase spray and Zyrtec (or Claritin/Reva) over the counter Cough syrup may cause drowsiness; avoid driving or take it at night time. Tylenol 1000mg every 8 hours as needed for pain Symptomatic treatment includes: rest, fluids, and increase humidity of the air at home. Follow up with your primary care provider as needed in 1 week Go to the ER for worsening symptoms or concerns Patient Language: Hungarian Prescriptions: New prednisone 20 mg tablet 40 mg PO DAILY 5 Days Qty: 10 0RF No Action omeprazole 40 mg capsule,delayed release(DR/EC) 40 mg PO DAILY levothyroxine 75 mcg tablet 75 mcg PO DAILY bupropion HCl 300 mg tablet extended release 24 hr 300 mg PO DAILY loratadine [Claritin] 10 mg tablet 10 mg PO DAILY Qty: 30 0RF carbamazepine 200 mg tablet 200 mg PO BID fluticasone propionate [24 Hour Allergy Relief] 50 mcg/actuation spray,suspension 1 spray intranasal BID Qty: 16 0RF Rx Instructions: administer into each nostril propranolol 20 mg tablet 20 mg PO DAILY Caplyta 10.5 mg capsule 10.5 mg PO DAILY lithium carbonate 300 mg Tablet Extended Release 300 mg PO DAILY lithium carbonate 450 mg Tablet Extended Release 450 mg PO DAILY Follow-up/Referrals: Danna,Jenni Herron APN [Primary Care Provider] -
== END 2024-06-06 16:17 | disposition home or self-care (01) ==
PROVIDERS: Emergency Provider Nurse Practitioner Family; PCP Nurse Practitioner Family
DX: J40 Bronchitis, not specified as acute or chronic (principal); F31.9 Bipolar disorder, unspecified; F41.9 Anxiety disorder, unspecified; Z86.16 Personal history of COVID-19
CPT/HCPCS: 99213; G0463

== ENCOUNTER 2025-01-30 15:43 | Emergency (ER) | payer MEDICARE, MEDICAID, SELFPAY ==
--- OUTSIDE RECORDS SUMMARY | 2024-06-27 10:30 | XMS_ITS ---
Author Organization [facility] Address [address] [place] [address] [address] Care Team Providers Care Activity Leader Name Role Phone Jenni Young Primary Care Provider UnavailJoseph Ziegler Unavailable [phone] REASON FOR VISIT Pt R/S this appointment and this appointment was not removed till day of Social History Sex Assigned At : Social History Observation Description Sex Assigned At Female Encounters Encounter Location [facility] [address] [address] 06/27/2024 Joseph Garcia Plan Of Treatment No Information Progress Notes * PAUL LAMAS MDOB: 1 (24 yo F)Acc No.[id number]:06/27/2024 Patient: A PAUL COMER Provider: TRAVIS GUTIERREZ :2000 A ge:23 Y S ex:Female Date:06/27/2024 Phone: Address:[address] [place] [address] [place], [place] [id number] Pcp:Jenni STEPHEN Subjective: * Chief Complaints: * P t R/S this appointment and this appointment was not removed till day of Billing Information: * Procedure Codes: * Electronic signature of TRAVIS Rasmussen on 01/30/2025 at 04:09 PM CDT Sign off status: Pending * Provider: TRAVIS GUTIERREZ Date: 0 06/27/2024 Generated for Tonyi ng/Edg/eTransmitting on: 1 04:09 PM CDT
--- OUTSIDE RECORDS SUMMARY | 2024-08-05 09:00 | XMS_ITS ---
Author Organization [facility] Address [facility] [address] [address] Care Team Providers Care Tube Repairer Name Role Phone Jenni Young Primary Care Provider UnavailJoseph Ziegler Unavailable [phone] Yumiko Puri [phone] REASON FOR VISIT Pt canceled on 08/02 Social History Sex Assigned At : Social History Observation Description Sex Assigned At Female Encounters Encounter Location Date Provider Diagnosis [facility] [employer] [place] [address] [facility] [address] [address] 08/05/2024 Yumiko Puri Plan Of Treatment No Information Progress Notes * PAUL LAMAS MDOB: 1 (24 yo F)Acc No.[id number]:08/05/2024 Patient: Gabriela PAUL COMER Provider: Gabriela PURI LCSW :2000 A ge:23 Y S ex:Female Date:08/05/2024 Phone: Address:[address] [place], [place] [id number] Pcp:Jenni STEPHEN Data: * Chief Complaints: * P t canceled on 08/02 Billing Information: * Procedure Codes: * Electronic signature of Yumiko Puri LCSW on 01/30/2025 at 04:09 PM CDT Sign off status: Pending Signatures: No Ad Hoc Signature Added * Provider: Gabriela PURI LCSW Date: 0 08/05/2024 Generated for Printi ng/Faxing/eTransmitting on: 1 04:09 PM CDT
--- NOTE | ~2025-01-30 | XR_ITS ---
EXAMINATION: XR finger 1st LT min 2V, 01/30/2025 16:20 CDT HISTORY: struck on door 2 days ago. Pain/swelling COMPARISON: No comparisons available. Findings: No acute fracture or malalignment. No significant degenerative changes. Soft tissues unremarkable. Impression: No acute fracture or malalignment. Reviewed, dictated and finalized at location P. Impression: No acute fracture or malalignment.
[2025-01-30 15:53] VITALS: BP 134/70; PULSE 91; RESP 16; TEMP 36.7; O2SAT 100
--- OUTSIDE RECORDS SUMMARY | 2025-01-30 16:08 | XMS_ITS | CCD ---
Author Name Interface, [id number] [place] [address] [facility] [place] [address] Reason for Visit Social History
--- OUTSIDE RECORDS SUMMARY | 2025-01-30 16:09 | XMS_ITS | Encounter Summary ---
Author Organization [facility] Address [address] [place] [address] Phone Care Team Providers Care Cloth Roll Winder Name Role Phone Rick Gutierrez MD Unavailable [phone] Geraldine Bernabe MD Unavailable [phone] Jenni Clay RADIATOR CORE TESTER, COUNSELOR DORMITORY Primary Care Provider [phone] Venita Riggins RADIATOR CORE TESTER, COUNSELOR DORMITORY Unavailable + [phone] Romain Esqueda MD Unavailable [phone] Anamika Orozco APRN, COUNSELOR DORMITORY Unavailable Lucien Dominguez MD Unavailable Reason for Visit * Reason Comments Medication Refill Encounter Details Date Type Department Care Team (Late st Contact Info) Description 08/10/2024 Refill [facility] - Gastroenterology [facility] [address] [place] [address] Anamika Orozco APRN, COUNSELOR DORMITORY [address] [place] [address] Medication Refill Social History Tobacco Use Types Packs/Day Years Used Date Smoking Tobacco: Never Smokeless Tobacco: Never Alcohol Use Standard Drinks/Week Comments Not Currently 0 (1 standard drink = 0.6 oz pur e alcohol) occasional [facility] Utilities Answer Date Recorded In the past 12 months has th e electric, gas, oil, or water company threatened to shut off services in your home? Yes 06/15/2023 Social Connection and Isolation Panel Answer Date Recorded In a typical week, how many times do you talk on the phone with family, friends, or neighbors? Once a week 06/15/2023 How often do you get together with friends or re latives? Once a week 06/15/2023 How often do you attend mormon or christianity serv ices? Never 06/15/2023 Do you belong [...] Total Score - Questions 1-9 12 06/25 [facility] - Occupational Stress [...] place to sleep or slept in a long term (including now)? Yes 06/15/2023 Education Answer Date [...] on file documented as of this encounter Miscellaneous Notes * Telephone Encounter - Elba Diego RN - 08/11/2024 9:26 AM CDT Medication refilled and signed per [facility] chronic medication standing order for pediatric and adult patients. documented in this encounter Plan of Treatment Not on file documented as of this encounter Visit Diagnoses Not on filedocumented in this encounter Additional Health Concerns Assessment Noted Time PHQ-9 Depression Total Score: 12 023 3:00 PM SERVICES MGR documented as of this encounter Care Teams Cloth Roll Winder Relationship Specialty Start Date End Date Jenni Clay APRN, [place] [address] [place] [address] PCP - General Family Medicine 08/04/23 Rick Gutierrez MD [address] [place] [phone] Consulting Physician Neurology 05/26/23 Geraldine Bernabe MD [address] [place] [address] Consulting Physician Gastroenterology 03/26/23 Venita Riggins APRN, COUNSELOR DORMITORY [address] [address] Nurse Practitioner Cardiology 09/29/23 11/06/24 Romain Esqueda MD [address] [phone] Consulting Physician General Surgery 11/12/23 Anamika Orozco APRN, COUNSELOR DORMITORY [address] [place] [address] Nurse Practitioner Advanced Practice Nurse 12/23/23 Lucien Dominguez MD [address] [phone] Consulting Physician Endocrinology 06/10/24 documented as of this encounter
--- OUTSIDE RECORDS SUMMARY | 2025-01-30 16:09 | XMS_ITS | Encounter Summary ---
Author Organization [facility] Address [address] [place] [address] Phone Care Team Providers Care 3Rd Mate Name Role Phone Provider, None Primary Care Provider Unavailabl e Kristina Galicia PAC Primary Care Pro vider Provider, Not On File Primary Care Provider Unav ailable Kristina Galicia PAC Primary Care Pro vider Rick Gutierrez MD Unavailable Geraldine Bernabe MD Unavailable [phone] Jenni Clay FUEL AGENT, POLICY WRITER Primary Care Provider Venita Riggins FUEL AGENT, POLICY WRITER Unavailable + [phone] Romain Esqueda MD Unavailable [phone] Anamika Orozco FUEL AGENT, POLICY WRITER Unavailable Lucien Dominguez MD Unavailable Reason for Visit * Reason Comments Medication Refill Encounter Details Date Type Department Care Team (Late st Contact Info) Description 07/21/2022 Refill [facility] - Internal Medicine - [place] [address] [place] [phone] Kristina Galicia, PAC [address] [place] [address] Medication Refill Social History Tobacco Use Types [...] Dept 07/04/22 Office Visit Kristina Galicia PAC [facility] Showing recent visits within past 365 days and meeting all other requirements Future Appointments Date Type Provider Dept 10/06/22 Appointment Kristina Galicia PAC [facility] Showing future appointments within next 90 days [...] Depression Total Score: 12 023 3:00 PM 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 documented as of this encounter Care Teams 3Rd Mate Relationship Specialty Start Date End Date Provider, None [place] PCP - General 09/11/21 08/12/22 Kristina Galicia, PAC [place] PCP - General Physician Android Ui Developer 08/13/22 10/03/22 Provider, Not On File [place] PCP - General 10/04/22 03/22/23 Kristina Galicia, PAC [address] [place] [address] PCP - General Physician Android Ui Developer 03/23/23 08/03/23 Jenni Clay APRN, POLICY WRITER [address] [place] [address] PCP - General Family Medicine 08/04/23 Rick Gutierrez MD [address] [place] [phone] Consulting Physician Neurology 05/26/23 Geraldine Bernabe MD [address] [place] [address] Consulting Physician Gastroenterology 03/26/23 Venita Riggins APRN, POLICY WRITER [address] [address] Nurse Practitioner Cardiology 09/29/23 11/06/24 Romain Esqueda MD [address] [phone] Consulting Physician General Surgery 11/12/23 Anamika Orozco APRN, POLICY WRITER [address] [place] [address] Nurse Practitioner Advanced Practice Nurse 12/23/23 Lucien Dominguez MD [address] [phone] Consulting Physician Endocrinology 06/10/24 documented as of this encounter
--- OUTSIDE RECORDS SUMMARY | 2025-01-30 16:09 | XMS_ITS | Patient Health Record ---
Author Organization [facility] [employer] [facility] Address [address] [place] [address] Care Team Providers Care Ornamental Metalwork Designer Name Role Phone Clay Jenni STEPHEN Primary Care Provider Unavaila Joseph Daniels Unavailable [phone] Yumiko Taylor Unavailable [phone] Allergies Allergen (clinical drug ingredient) Drug/Non Drug [...] Date End Date Status carBAMazepine 200 MG Tablet 1 tablet Oral Twice a day; Duration: 30 days Active Bolivar Carbonate ER 300 MG Tablet Extended Release TAKE 1 TABLET BY MOUTH TWICE DAILY; Duration: 30 Active Propranolol HCl 20 MG Tablet 1 tablet Oral Twice a day; Duration: 30 days Active Propranolol HCl 20 MG Tablet TAKE 1 TABLET BY MOUTH TWICE DAILY; Duration: 30 only in the morning Active Omeprazole 40 MG Capsule Delayed Release Oral only in the morning 09/14/2023 Active Levothyroxine Sodium 50 MCG Tablet Oral 09/14/2023 Active Levothyroxine Sodium 75 MCG Tablet Oral 09/14/2023 Not-Taking Nexplanon 68 MG Implant as directed Subcutaneous Active FLUTICASONE PROPIONATE 110 MCG/ACTUATION HFA AEROSOL INHALER *Reorder from Giggle for eRx and Interaction Alerts* 09/14/2023 Not-Taking Arnuity Ellipta 100 MCG/ACT Aerosol Powder Breath Activated Inhalation 09/14/2023 Not-Taking Ondansetron 4 MG Tablet Disintegrating Oral 09/14/2023 Active buPROPion HCl ER (XL) 300 MG Tablet Extended Release 24 Hour TAKE 1 TABLET BY MOUTH EVERY MORNING; Duration: 30 Active Caplyta 10.5 MG Capsule TAKE 1 CAPSULE BY MOUTH DAILY; Duration: 30 Active Bolivar Carbonate ER 450 MG Tablet Extended Release TAKE 1 TABLET BY MOUTH TWICE DAILY WITH 300MG TABLET; Duration: 30 Active Immunizations Vaccine Route Administration Date Status [...] schedule Unknown 11/01/2013 Administered Influenza (split), preservat flor free, 6-35 months Unknown 02/15/2007 Administered Influenza [...] 10/20/2001 Administered MMR Unknown 10/24/2004 Administered Novel Xzkphafmi-W0I3-05, preservative free Unknown 04/06/2009 Administered Novel Amaekwpkq-R0U1-88, preservative free Unknown 07/19/2009 Administered Novel Tsxiclywq-X4Y2-72, preservative free Unknown 03/30/2013 Administered Novel Bmvucuang-A9W5-94, preservative free Unknown 04/10/2015 Administered Novel Dnokmgzdj-V9H4-48, preservative free Unknown 06/03/2017 Administered Novel Rvgdiczpo-L2B3-82, preservative free Unknown 03/26/2018 Administered Pneumococcal conjugate [...] History Observation Description Sex Assigned At Female Social History Miscellaneous: Social Info Question Answer Notes Advance Care Planning Are you your own decision-maker Yes Do you have Power of Family Lawyer for Health or [facility]? No Safety issues: Are there any firearms in the house? No Social History Social Info Question Answer Notes Household: Marital Status: Single Number of Adults in household: 2 Number of Children in Household: 2 Level of Education: Not Finished College Drug/Alcohol: Social Info Question Answer Notes Drugs Have you used drugs other than those for medical reasons in the past 12 months? No AUDIT-C (Standard) Did you have a drink containing alcohol in the past year? 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 Migrated Social History Migrated Social History Alcohol Intake: None 08/04/2019,Tobacco Years: Never smoker 08/04/2019 Problems Problem Type SNOMED Code ICD Code Onset Dates Problem Status W/U Status Risk Notes Problem Generalized anxiety disorder (01126735) Generalized anxiety disorder (F41.1) Active confirmed Problem Posttraumatic stress disorder (18128832) Post-traumatic stress disorder, chronic (F43.12) Active confirmed Problem Bipolar affective disorder, currently depressed, moderate (874261448) Bipolar disorder with moderate depression (F31.32) Active confirmed Vital Signs Heart Rate 100 /min 06/13/2024 Height-cm 165.10 cm 06/13/2024 Blood pressure diastolic 81 mm Hg 06/13/2024 Weight-kg 94.8 kg 06/13/2024 Height 65.00 in 06/13/2024 Blood pressure systolic 131 mm Hg 06/13/2024 Weight 209 lbs 06/13/2024 BMI 34.78 kg/m2 06/13/2024 Encounters Encounter Location Date Provider Diagnosis [facility] [employer] [facility] [address] [address] 06/13/2024 Joseph Garcia Generalized anxiety disorder F41.1 ; Post-traumatic stress disorder, chronic F43.12 ; Bipolar disorder with moderate depression F31.32 and Other residential (current) drug therapy Z79.899 [facility] [employer] [facility] [address] [facility] [address] [place] [address] 09/12/2024 Yumiko Taylor [facility] [employer] [facility] [address] [facility] [address] [place] [address] 06/10/2024 Joseph Garcia Bipolar disorder wit h moderate depression F31.32 [facility] [employer] [facility] [address] [facility] [address] [place] [address] 06/13/2024 Joseph Garcia [facility] [address] [facility] [address] [place] [address] 09/12/2024 Joseph Garcia [facility] [facility] [address] [place] [address] 06/10/2024 Josephyohan Barnhartoza [facility] [facility] [address] [place] [address] 06/10/2024 Josephyohan Barnhartoza [facility] [address] [place] [address] 06/28/2024 Josephyohan Barnhartoza [facility] [employer] [facility] [address] [place] [address] 06/29/2024 Josephyohan Barnhartoza [facility] [address] [place] [address] 07/17/2024 Joseph Garcia [facility] [employer] [facility] [address] [place] [address] 08/02/2024 Joseph Garcia Assessments Encounter Date Diagnosis (ICD Code) Assessment Notes Treatment Notes Treatment Clinical Notes Section Notes 06/10/2024 Bipolar disorder with moderate depression (ICD-10 - F31.32) 06/13/2024 Generalized anxiety disorder (ICD-10 - F41.1) She is not adherent with medication, taking carbamazepi ne, lithium, caplyta in the morning 06/13/2024 Post-traumatic stress disorder, chronic (ICD-10 - F43.12) She is not adherent with medication, taking carbamazepi ne, lithium, caplyta in the morning 06/13/2024 Bipolar disorder with moderate depression (ICD-10 - F31.32) lithium er 450mg & 300mg bid, Caplyta 10.5mg, Carbamazepine 200mg bid, bupropion xl 300mg daily She is not adherent with medication, taking carbamazepi ne, lithium, caplyta in the morning 06/13/2024 Other 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 Bipolar disorder: - Continue carbamazepine 200 mg twice a day - Continue lithium 750 mg twice a day - Increase Caplyta to 21 mg for bipolar depression - Reinstate bupropion Plan: - Pending lithium level results, consider adjusting to once-a-day dosing - Patient to picker packer bupropion prescription and monitor for improvement - Reevaluate medication regimen in one month or adjust based on lithium level results 2. Anxiety and OCD: - Continue propranolol 20 mg in the morning Plan: - Encourage the use of a pill certified financial planner for nighttime medications to improve adherence - Consider counseling for anxiety management and OCD 3. Hypothyroidism: - Continue Synthroid as prescribed - Monitor thyroid levels (T4: 0.8, TSH: 2.556) Plan: - Follow up with leather goods assembler as needed 4. Abnormal lipid panel: Plan: - Encourage patient to follow up with primary care provider for further evaluation and management 5. Low testosterone and DHEA levels: Plan: - Follow up with leather goods assembler as needed for further evaluation and management 6. Counseling: Plan: - Expedite scheduling for counseling services to address depression, anxiety, and OCD symptoms 7. Medication adherence: Plan: - Encourage the use of pill planners for both morning and nighttime medications - Reevaluate medication regimen in one month - Consider adjusting to once-a-day dosing if adherence remains a challenge She is not adherent with medication, taking carbamazepi ne, lithium, caplyta in the morning Plan Of Treatment Future Test Test Name Order Date LITHIUM (613) 06/13/2024 Insurance Providers Payer Name Payer Address Payer Phone Subscriber Number Group Number Insured Name Patient Relationship to Insured Coverage Start Date Coverage End Date Medicare-I l Medicare [address] [place] [address] [id number] PAUL LAMAS Self - patient is the insured Medicaid-I l Medicaid [address] [address] [place] [address] [id number] NOA LAMASA Self - patient is the insured [employer] [address] [address] [place] [address] [phone] [id number] PAUL LAMAS Self - patient is the insured Medical [...]
--- OUTSIDE RECORDS SUMMARY | 2025-01-30 16:09 | XMS_ITS | Encounter Summary ---
Author Organization [facility] Address [address] [place] [address] Phone Care Team Providers Care Carpenter Streetcar Name Role Phone Rick Gutierrez MD Unavailable [phone] Geraldine Bernabe MD Unavailable [phone] Jenni Clay APRN, SITE CONTROLLER Primary Care Provider [phone] Romain Esqueda MD Unavailable Anamika Orozco APRN, SITE CONTROLLER Unavailable Lucien Dominguez MD Unavailable Reason for Visit * Reason Onset Date Comments Rapid Heart Rate 01/04/2025 Encounter Details Date Type Department Care Team (Late st Contact Info) Description 01/04/2025 [facility] [address] [place] [address] Jenni Clay APRN, SITE CONTROLLER [address] [place] [address] Rapid Heart Rate Social History Tobacco Use Types Packs/Day Years Used Date Smoking Tobacco: Never Smokeless Tobacco: Never Alcohol Use Standard Drinks/Week Comments Not Currently 0 (1 standard drink = 0.6 oz pur e alcohol) occasional C Utilities Answer Date Recorded In the past 12 months has [employer] electric, gas, oil, or water company threatened [...] week 06/15/2023 How often do you attend baptism or sabianism serv ices? Never 06/15/2023 Do you belong to any clubs o r organizations such as baptism groups, unions, fraternal or athletic groups, or [...] Total Score - Questions 1-9 12 06/25 [facility] of Occupat ional Health - Occupational Stress [...] place to sleep or slept in a [place] health care facility (including now)? Yes 06/15/2023 Education Answer Date [...] encounter Miscellaneous Notes * Telephone Encounter - Loraine Bonilla RN - 01/06/2025 12:21 PM CDT Spoke with patient Went to [facility] on 01/04 She was having a gallbladder attack She is going to get a referral to cardiology just as a f/u, will call her PCP to get that * Telephone Encounter - Manish Muniz RN - 01/04/2025 5:01 PM CDT SITUATION: 24 y.o. with heart rate questions/concerns BACKGROUND: Patient contacting [facility] [place] initially to schedule appointment and then reported symptoms - triage completed due to this. Per chart review, patient last seen at [facility] 10/06/2023 with DECKHAND SPONGE BOAT, JUANITA Riggins (typically new referral needed after a year of not being seen). Primary Care Provider not covered by this RN. ASSESSMENT: Symptom Description / Location: Patient states that her walking heart rate is 112 and when going up stairs is 148 bpm. Past few days heart hurts like something is stuck in chest Where esophagus and sternum is - more to right of sternum Feels like indigestion per patient Has been going on for a couple days Squeezing, pressure, aching feeling Intermittent Has been present for maybe > 5 minutes at this time Today she was sitting and could feel heart palpitations and pulse was 99 sitting in chair Denies taking any medications for heart. Takes Propranolol for anxiety Father has A.fib - believes has something implanted Denies feeling weak or lightheaded currently When patient states she went to the hospital and had EKG completed, reports mention of myocardial infarction. Reports that she is anemic - questioning if this could be related to symptoms. Treatment / Response: No reported treatment. RECOMMENDATION: Patient/caller refuses disposition of: Call EMS 911 Now, See More Appropriate Guideline Reiterated the importance of following recommendation as symptoms could indicate a serious or life-threatening situation Patient response:Patient agrees to go to ED, driven to ED by: self Advised to bring cell phone and stop to call 911 for worsening symptoms during travel. Patient not certain on when she is going to make it to the Emergency Room to be seen but is agreeable. Care advice provided per triage guideline. Caller verbalized understanding. Encounter routed to provider to notify. Encounter routed to Cardiology provider that patient last seen to ensure follow up. - Reason for Disposition: Chest pain Chest pain lasting longer than 5 minutes and pain is crushing, pressure-like, or heavy . Protocols Used: Chest Pain-A-OH Heart Rate and Heartbeat Dihjhpvvn-C-YY See care advice and disposition for Guideline. First positive answer recorded, all responses to prior questions were negative. If symptoms increase, change or if new symptoms develop, call your health care provider or call back. Recommendations were based on caller information and is not a diagnosis. Verified and reviewed all triage information with caller. documented in this encounter Plan of Treatment Not on file documented as of this encounter Visit Diagnoses Not on filedocumented in this encounter Additional Health Concerns Assessment Noted Time PHQ-9 Depression Total Score: 12 023 3:00 PM CHEMICAL OPERATIONS SPECIALIST documented as of this encounter Care Teams Carpenter Streetcar Relationship Specialty Start Date End Date Jenni Clay APRN, JUANITA [address] [place] [address] PCP - General Family Medicine 08/04/23 Rick Gutierrez MD [address] [place] [address] Consulting Physician Neurology 05/26/23 Geraldine Bernabe MD [address] [place] [address] Consulting Physician Gastroenterology 03/26/23 Romain Esqueda MD [address] [address] Consulting Physician General Surgery 11/12/23 Anamika Orozco APRN, SITE CONTROLLER [address] [place] [address] Nurse Practitioner Advanced Practice Nurse 12/23/23 Lucien Dominguez MD [address] [address] Consulting Physician Endocrinology 06/10/24 documented as of this encounter
--- OUTSIDE RECORDS SUMMARY | 2025-01-30 16:09 | XMS_ITS | Clinical Summary ---
Author Organization [facility] Address [address] [place] [address] Phone Care Team Providers Care Interactive Art Director Name Role Phone Rick Gutierrez MD Unavailable Geraldine Bernabe MD Unavailable [phone] Jenni Clay APRN, PIPE WELDER Primary Care Provider [phone] Romain Esqueda MD Unavailable [phone] Anamika Orozco APRN, PIPE WELDER Unavailable Lucien Dominguez MD Unavailable Allergies Active Allergy Reactions Criticality [...] Hives 02/25/2021 Melatonin Unknown 09/26/2022 Hydrocodone-Acetaminophen Nausea,Vomiting 09/27 /2016 Proanthocyanidin Unknown 09/26/2022 Ketorolac Tromethamine Other (see [...] 1 Capsule by mouth daily. 4 Active etonogestrel (Nexplanon) 68 MG Implant by Subcutaneous route once. Active omeprazole (PriLOSEC) 40 MG CAPSULE DELAYED RELEASE TAKE 1 CAPSULE BY MOUTH IN THE MORNING AND AT BEDTIME 180 Capsule 5 Active Active Problems Problem Noted Date Diagnosed [...] Encounters Date Type Department Care Team Description 01/04/2025 Nurse Triage [facility] [address] [place] [address] Jenni Clay APRN, PIPE WELDER Rapid Heart Rate 11/26/2024 [facility] [place] [address] [place] [address] Anamika Orozco APRN, PIPE WELDER Medication Refill 11/26/2024 [facility] [place] [address] [place] [address] Kristina Galicia, JESSIE Medication Refill 11/03/2024 [facility] [place] [address] [place] [address] Anamika Orozco APRN, PIPE WELDER Medication Refill from Last 3 Months Immunizations Immunization Administration Dates Next Due DTAP VACCINE 10/08/2005, 6,01/17/2002,04/12,02/10/2001,2000 H1N1 Flu, Unspecified Formulation 07/19/2009,02/2009 HEP B/HIB Combined Vaccine 04/12/2001 Hepatitis A Vaccine, Pediatric/adolescent, 2 Dose Schedule 11/14/2003,09/22/2002 Hepatitis B Vaccine, Pediatric/adolescent 2000,2000 Hepatitis B Vaccine,unspecif ied Formulation 04/12/2001 Hib Vaccine,unspecified Formulation 01/17/2002,1 ,2000 Human Papillomavirus Vaccine (HPV), quadrivalent 11/01/2013,03/30/2013,12/03/2012 Inactivated Polio Vaccine 10/08/2005,,02/10/2001,11/19 Influenza Vaccine, Quadrivalent, PF /,06/03/2017,04/10/2015,03/30 Influenza Vaccine,unspecifie d Formulation 12/10/2015,02/13/2011,03/06/2008,02/25 MMR Vaccine [...] = 0.6 oz pur e alcohol) occasional [employer] Utilities Answer Date Recorded In the past 12 months has [employer], gas, oil, or water [employer] threatened to shut off services in your home? Yes 06/15/2023 Social Connection and Isolation Panel Answer Date Recorded In a typical week, how many times do you talk on the phone with family, friends, or neighbors? Once a week 06/15/2023 How often do you get together with friends or re latives? Once a week 06/15/2023 How often do you attend roman catholic or sabianism serv ices? Never 06/15/2023 Do you belong to any clubs o r organizations such as roman catholic groups, unions, fraternal or athletic groups, or [...] you are drinking? Patient does not drink 02/19/202 4 Q3: How often do you have si x or more drinks on one occasion? Never 06/15/2023 Overall Financial Resource Strain (CARDIA) Answe r Date Recorded How hard is it for you to pa y for the very basics like food, housing, medical care, and heating? Very hard 06/15/2023 PHQ-2 Answer Date Recorded Total Score - Questions 1-9 12 06/25 [facility] - Occupational Stress Questionnaire Answer Date Recorded [...] place to sleep or slept in a prison (including now)? Yes 06/15/2023 Education Answer Date [...] Sign Reading Time Taken Comments Blood Pressure 123/69 06/10/2024 1:47 PM SKIFF OPERATOR Pulse 87 06/10/2024 1:47 PM SKIFF OPERATOR Temperature 36.4 C (97.5 F) 06/10/2024 1:47 PM SKIFF OPERATOR Respiratory Rate 22 06/10/2024 1:47 PM SKIFF OPERATOR Oxygen Saturation 98% 06/10/2024 1:47 PM SKIFF OPERATOR Inhaled Oxygen Concentration - - Weight 95.3 kg (210 lb) 06/10/2024 1:47 PM SKIFF OPERATOR Height 160 cm (5' 3) 12/23/2023 1:06 PM CDT Body Mass Index 37.2 12/23/2023 1:06 PM CDT Plan of Treatment Health Maintenance Due Date Last Done Comments Hepatitis C Virus (HCV) Screening 2000 Pneumococcal Immunization Combined (1 of 2 - PCV) 09/21/2019 04/12/2001, 02/10/2001, 2000 Pap Smear 2021 Medicare Initial AWV [id number] 12/26/2021 Influenza Immunization (#1) 12/26/202402/27, 06/03/2017, 12/10/2015, Additional history exists SARS-COV-2 Immunization ( - season) 2024 DTaP/Tdap/Td Immunization (9 - Td or Tdap) 11/25/2032 11/25/2022, 07/13/2020, 10/01/2010, Additional history exists Respiratory Syncytial Virus (RSV) [...] (ACWY) Completed 10/03/2016, 11/26/2011 Meningococcal B Immunization Discontinued 07/27/2017, 06/03/2017 TdaP Immunization Discontinued 11/25/2022, , 10/01/2010 Rotavirus Immunization Aged Out No lo nger eligible based on patient's age to complete this topic Insurance MEDICARE C [employer] Care Teams Interactive Art Director Relationship Specialty Start Date End Date Jenni Clay APRN, JUANITA [address] [place] [address] PCP - General Family Medicine 08/04/23 Rick Gutierrez MD [address] [place] [address] Consulting Physician Neurology 05/26/23 Geraldine Bernabe MD [address] [place] [address] Consulting Physician Gastroenterology 03/26/23 Romain Esqueda MD [address] [address] Consulting Physician General Surgery 11/12/23 Anamika Orozco APRN, PIPE WELDER [address] [place] [address] Nurse Practitioner Advanced Practice Nurse 12/23/23 Lucien Dominguez MD [address] [address] Consulting Physician Endocrinology 06/10/24
--- OUTSIDE RECORDS SUMMARY | 2025-01-30 16:09 | XMS_ITS | Clinical Summary ---
Author Organization [facility] Address [address] [place] [address] Care Team Providers Care Buckle Frame Shaper Name Role Phone Unknown, Provider Primary Care Provider Unavaila ble Source Comments [facility],non-owned Affiliates and Associated Physician Practices is amultiple site organization consisting of ambulatory clinics and hospital sitesin [place], [place], [place] and [place]. This disclosure is being madepursuant to the Care Everywhere program and may not contain all information available regarding this patient. Last updated 18.[facility] Allergies Active Allergy Reactions Criticality Noted Date [...] document. Alwaysverify current medications with the patient. carBAMazepine (TEGRETOL) 200 MG tablet Take 200 mg by mouth 2 times daily 2 Active albuterol HFA (PROVENTIL; VENTOLIN; PROAIR) 108 (90 Base) MCG/ACT inhaler Take 2 puffs by mouth every 4 hours 1 Active ondansetron, disintegrating, (Zofran ODT) 4 MG tablet DISSOLVE 1 TABLET ON THE TONGUE EVERY 8 HOURS NEEDED FOR NAUSEA 3 Active Caplyta 10.5 MG CAPS Take 1 capsule by mouth once daily 4 Active omeprazole (PriLOSEC) 40 MG capsule Take 1 (one) capsule by mouth 5 Active buPROPion XL 24hr (Wellbutrin-XL) 300 MG tablet Take 1 (one) tablet by mouth every morning Active levothyroxine (Synthroid) 50 MCG tablet Take 1 (one) tablet by mouth daily before breakfast Active lithium CR (Eskalith CR) 450 MG tablet Take 1 (one) tablet by mouth Active Active Problems Problem Noted Date Diagnosed Date Convergence insufficiency 09/10/2021 Bipolar disease, chronic 09/10/2021 Deviated septum 09/10/2021 Encounters Date Type Department Care Team Description 12/09/2024 4:00 PM CDT Video Visit [facility] - [facility] REND[facility] [address] [place] [phone] Moreno Li MD Chronic pelvic pain in female 12/07/2024 Telephone [facility] [address] [place] [phone] Moreno Li MD Question 11/11/2024 11:00 AM CDT Procedure visit [facility] - [facility] REND[facility] [address] [place] [phone] Chronic pelvic pain in female ; Endometriosis 11/11/2024 Travel 11/10/2024 9:30 AM CDT Office Visit [facility] - [facility] R[facility] [address] [place] [phone] Moreno Li MD Chronic pelvic pain in female (Primary Dx); Endometriosis from Last 3 Months Family History Medical History Relation Name Comments Depression Father Schizophrenia Father Bipolar Disorder Mother Depression Mother Blindness Neg Hx Glaucoma Neg Hx Macular Degeneration Neg Hx Relation Name Status Comments Father Mother Social History Tobacco Use Types Packs/Day Years Used Date Smoking Tobacco: Never Smokeless Tobacco: Never Tobacco Cessation:Counseling Given: Not Answered Alcohol Use Standard Drinks/Week Comments Not Currently 0 (1 standard drink = 0.6 oz pur e alcohol) PHQ-2 Answer Date Recorded Patient Health Questionnaire-2 Score 0 11/10/2024 Comments Unknown Sex and Gender Information Value Date Recorded Sex Assigned at Not on file Legal Sex Female 6:49 AM SUCTION OPERATOR Gender Identity Not on file Sexual Orientation Not on file Last Filed Vital Signs Vital Sign Reading Time Taken Comments Blood Pressure 120/80 11/10/2024 9:27 AM CDT Pulse 121 06/24/2019 3:19 PM SUCTION OPERATOR Temperature 35.9 C (96.7 F) 06/24/2019 3:19 PM SUCTION OPERATOR Respiratory Rate - - Oxygen Saturation 97% 06/24/2019 3:19 PM SUCTION OPERATOR Inhaled Oxygen Concentration - - Weight 94.8 kg (209 lb) 11/10/2024 9:27 AM CDT Height 160 cm (5' 3) 11/10/2024 9:27 AM CDT Body Mass Index 37.02 11/10/2024 9:27 AM CDT Plan of Treatment Upcoming Encounters Date Type Department Care Team (Late st Contact Info) Description 02/07/2025 3:00 PM CDT Office Visit [facility] [address] [facility] [address] [place] [phone] Faith Dixon MD [address] [place] [address] Health Maintenance Due Date Last Done Comments HIV SCREENING 09/21/2015 HPV VACCINE (1 - 3-dose series) 09/21/2015 DTAP/TDAP/TD VACCINES (1 - Tdap) 09/21/2019 HEPATITIS B VACCINE (1 of 3 - 19+ 3-dose series) 09/21/2019 CHLAMYDIA/GONORRHEA SCREENING 06/20/2023 06/20/2022 MEDICARE AWV CALENDAR YEAR 2024 COVID-19 VACCINE ( - season) 2024 INFLUENZA VACCINE (#1) 2024 8, 06/03/2017, 12/10/2015, Additional history exists PAP SMEAR 06/20/2025 06/20/2022 ZOSTER VACCINE (1 of 2) 2050 HEPATITIS C SCREENING Completed 06/20/2022 HIB VACCINE Aged Out No longer eligi ble based on patient's age to complete this topic MENINGOCOCCAL (Group B) VACCINE SHARED DECISION-MAKING Aged Out No longer eligible based on patient's age to complete this topic MENINGOCOCCAL GROUPS A/C/Y/W VACCINE Aged Out No longer eligible based on patient's age to complete this topic PNEUMOCOCCAL VACCINE Aged Out No long er eligible based on patient's age to complete this topic Procedures Procedure Name Priority Date/Time Associated Diagnosis Comments NON-OB PELVIC SONOGRAM Routine 11/11/2024 10:50 AM CDT Chronic pelvic pain in female Endometriosis from Last 3 Months Results * NON-OB PELVIC SONOGRAM (11/11/2024 10:50 AM CDT) Linked Results Indication ======== Chronic pelvic pain History ====== OB History 1. Para 1 Assessment LMP on 10/22/2024. Day of cycle 21 Method ====== Transvaginal ultrasound. View: Sufficient Uterus ====== Visualized. Size 93 mm x 70 mm x 52 mm. Vol 177.2 cm Position: anteverted Malformations: septate Myometrium: normal Endometrium: measures within normal limits. Endometrial thickness, total 7.8 mm No fibroids identified No polyps identified Right Ovary ========= Visualized, mobile. Size 30 mm x 13 mm x 19 mm. Vol 3.6 cm Left Ovary ======== Visualized, mobile. Size 39 mm x 23 mm x 30 mm. Vol 13.9 cm Cyst(s) Size 19.5 mm x 22.8 mm x 20.8 mm. Mean 21.0 mm. Vol 4.842 cm . Simple cyst vs follicle Cul de Sac ========= Positive uterine sliding sign. Minimal free fluid visualized Impression ========= Septate uterus. Endometrium measures within normal limits. Right ovary appears normal. Simple cyst in left ovary measuring 2.1cm mean diameter. Both ovaries appear mobile. Positive uterine slide. Coding ====== Diagnoses R10.2: Pelvic and perineal pain Procedures [id number]: US Transvaginal Non OB [facility] Anatomical Region Laterality Modality Other 11/11/2024 10:5 0 AM CDT us More[place] Li MD [facility] ORDERABLES Edited Result - Final from Last 3 Months Insurance MEDICARE MEDICAID - OUT OF STATE MEDICARE MEDICAID - [place] [facility] MEDICARE [facility] [place] [place] [address] [facility] MEDICAID - OUT OF STATE MEDICARE Care Teams Buckle Frame Shaper Relationship Specialty Start Date End Date Unknown, Provider PCP - General 03/30/23
--- OUTSIDE RECORDS SUMMARY | 2025-01-30 16:09 | XMS_ITS | Patient Health Record ---
Author Organization [facility] Address [address] [place], [place] [address] Support Name Relationship Address Phone Jo Marin Guarantor Unknown [phone] Reason For Referral No Information Plan Of Treatment No Information Insurance Providers Payer Name Payer Address Payer Phone Subscriber Number Group Number Insured Name Patient Relationship to Insured Coverage Start Date Coverage End Date Medicare [address] [place] [id number] Jo Marin Self - patient is the insured
--- OUTSIDE RECORDS SUMMARY | 2025-01-30 16:09 | XMS_ITS | Encounter Summary ---
Author Organization [facility] Address [address] [place] [address] Phone Care Team Providers Care Illuminating Engineer Name Role Phone Rick Gutierrez MD Unavailable [phone] Geraldine Bernabe MD Unavailable [phone] Jenni Clay CALIBRATION ENGINEER, HAIR DESIGNER Primary Care Provider [phone] Venita Riggins CALIBRATION ENGINEER, HAIR DESIGNER Unavailable + [phone] Romain Esqueda MD Unavailable [phone] Anamika Orozco APRN, HAIR DESIGNER Unavailable Lucien Dominguez MD Unavailable Reason for Visit * Reason Comments Medication Refill Encounter Details Date Type Department Care Team (Late st Contact Info) Description 08/26/2023 Refill [facility] - Internal Medicine - [place] [address] [place] [address] Kristina Galicia, [facility] [address] [place] [address] Medication Refill Social History Tobacco Use Types Packs/Day Years Used Date Smoking Tobacco: Never Smokeless Tobacco: Never Alcohol Use Standard Drinks/Week Comments Yes 0 (1 standard drink = 0.6 oz pur e alcohol) occasional [facility] Utilities Answer Date Recorded In the past 12 months has Agentrun, oil, or water Proteopure threatened to shut off services in your home? Yes 06/15/2023 Social Connection and Isolation Panel Answer Date Recorded In a typical week, how many times do you talk on the phone with family, friends, or neighbors? Once a week 06/15/2023 How often do you get together with friends or re latives? Once a week 06/15/2023 How often do you attend religious or muslim serv ices? Never 06/15/2023 Do you belong to any clubs o r organizations such as religious groups, unions, fraternal or athletic groups, or [...] Total Score - Questions 1-9 12 06/25 [facility] of Occupat ional [facility] - Occupational Stress Questionnaire Answer Date Recorded [...] place to sleep or slept in a retirement (including now)? Yes 06/15/2023 Education Answer Date [...] as of this encounter Plan of Treatment Not on file documented as of this encounter Visit Diagnoses Not on filedocumented in this encounter Additional Health Concerns Assessment Noted Time PHQ-9 Depression Total Score: 12 023 3:00 PM JEWELER APPRENTICE documented as of this encounter Care Teams Illuminating Engineer Relationship Specialty Start Date End Date Jenni Clay APRN, JUANITA [address] [place] [address] PCP - General Family Medicine 08/04/23 Rick Gutierrez MD [address] [place] [address] Consulting Physician Neurology 05/26/23 Geraldine Bernabe MD [address] [place] [address] Consulting Physician Gastroenterology 03/26/23 Venita Riggins APRN, HAIR DESIGNER [address] [facility] [address] [address] Nurse Practitioner Cardiology 09/29/23 11/06/24 Romain Esqueda MD [address] [phone] Consulting Physician General Surgery 11/12/23 Anamika Orozco APRN, HAIR DESIGNER [address] [place] [address] Nurse Practitioner Advanced Practice Nurse 12/23/23 Lucien Dominguez MD [address] [address] Consulting Physician Endocrinology 06/10/24 documented as of this encounter
--- OUTSIDE RECORDS SUMMARY | 2025-01-30 16:09 | XMS_ITS | Clinical Summary ---
Author Organization [facility] Address [address] [place] [address] Phone Care Team Providers Care Sugar Trucker Name Role Phone Unavailable Primary Care Provider [...] on file Legal Sex Female 12:18 PM ICT SUPPORT ENGINEER Gender Identity Not on file Sexual Orientation Not on file Last Filed Vital Signs Vital Sign Reading Time Taken Comments Blood Pressure 138/70 04/16/2019 3:50 PM ICT SUPPORT ENGINEER Pulse 82 04/16/2019 12:25 PM ICT SUPPORT ENGINEER Temperature 36.7 C (98 F) 04/16/2019 12:25 PM ICT SUPPORT ENGINEER Respiratory Rate 16 04/16/2019 3:50 PM ICT SUPPORT ENGINEER Oxygen Saturation 99% 04/16/2019 3:50 PM ICT SUPPORT ENGINEER Inhaled Oxygen Concentration - - Weight 90.7 kg (200 lb) 04/16/2019 12:25 PM ICT SUPPORT ENGINEER Height 160 cm (5' 3) 04/16/2019 12:25 PM ICT SUPPORT ENGINEER Body Mass Index 35.43 04/16/2019 12:25 PM ICT SUPPORT ENGINEER Plan of Treatment Health Maintenance Due Date Last Done Comments HPV VACCINES (1 - 3-dose series) 09/21/2015 DTAP/TDAP/TD VACCINES (1 - Tdap) 09/21/2019 HEPATITIS B VACCINES (1 of 3 - 19+ 3-dose series) 08/26 CERVICAL CANCER SCREENING 2021 HPV/Cotest (21-29) 2021 PAP SMEAR 2021 INFLUENZA VACCINE (#1) 2024 [place] [address] [facility] MEDICAID
--- OUTSIDE RECORDS SUMMARY | 2025-01-30 16:09 | XMS_ITS | Clinical Summary ---
Author Organization [facility] Address [address] [place] [address] Care Team Providers Care Certified Pharmacy Technician Name Role Phone Piper Stephen MD Unavailable [phone] Jenni Clay NP Primary Care Provider [phone] Allergies Active Allergy Reactions Criticality Noted Date [...] needed for pain 30 tablet 02/07/20 Active polyethylene glycol (MIRALAX) 17 gram/dose bulk powderIndications: [...] Noted Date Diagnosed Date Borderline personality disorder 04/21/2023 Bipolar affective 06/21/2022 Ankle pain 05/25/2015 Overview [...] Nonreactive 07/13/2020 Lab Results Component Value Date [id number] Nonreactive 06/20/2022 Lab Results Component Value Date [...] as allergic to one component in vaccine Immunizations Immunization Administration Dates Next Due DTaP 10/08/2005, 6,01/17/2002,04/12,02/10/2001,2000 H1N1 All Forms 07/19/2009,04/06/2009 HPV, Quadrivalent 11/01/2013,03/30/2013,12/04/19 13 Hep A, Pediatric 11/14/2003,09/22/2002 Hep B / HiB 04/12/2001 Hep B, Adolescent or Pediatric 2000,2000 Hep B, Unspecified 04/12/2001 HiB 01/17/2002,02/10/2001,2000 IPV 10/08/2005, 2,02/10/2001,11/19 Influenza, Quadrivalent, Spl it, Preservative Free, Intramuscular 03/26/2018,06/03/2017,04/10/2015,03/30 Influenza, Split 04/12/2010,02/13/2009, 7 Influenza, Trivalent, Preser vative Free, Intramuscular 05/18/2022(Deferred: Other),02/24/2005 Influenza, Unspecified 12/10/2015,2010,03/06/2008,02/25 MMR 10/24/2004,10/20/2001 Meningococcal B, OMV (Bexsero) 07/27/2017,2017 Meningococcal Conjugate (Menveo) 10/03/2016 Meningococcal MCV4, Unspecified 11/26/2011 Pneumococcal Conjugate 7-Valent 04/12/2001,02/10,2000 Tdap 07/13/2020,10/01/2010 Varicella 11/05/2006,10/20/2001,09/19/2001 Surgical History Surgery Date Site/Laterality Comments TONSILLECTOMY SEPTOPLASTY Medical History Medical History Date Comments Hx Other Medical Right wrist fx in the past.; Comments: MEJIA 05/08/2015 - Hx Other Medical Left lateral an kle sprain.; Comments: MEJIA 05/28/2015 - Hyperthyroidism Bipolar affective (HCC) Borderline personality disorder (HCC) 04/21/2023 PTSD (post-traumatic stress disorder) Depressive psychosis (HCC) Gall stones Family History Medical History Relation [...] of Binge Drinking Not on file 05/29 [place] Depression Scale Answer Date Recorded [place] Depression Scale Total 26 03/12/2023 The thought of harming myself has occurred to me . Never 03/12/2023 Personal Safety Answer Date Recorded Have you ever been in or are you currently in a harmful physical or emotional relationship or is someone making you feel afraid or unsafe? Denies 07/25/2024 Comments Unknown Sex and Gender Information Value Date Recorded Sex Assigned at Not on file Legal Sex Female 2:48 AM NICK SETTER Gender Identity Not on file Sexual Orientation [...] g 3 8 KATHERINE D,GIR LKAYL A Karine Dasilva, CNM Complications:Shoulder Dysto phong Delivery Location:[facility] Last Filed Vital Signs Vital Sign Reading Time Taken Comments Blood Pressure 144/77 07/25/2024 7:36 PM CDT Pulse 97 07/25/2024 7:36 PM CDT Temperature 37.1 C (98.7 F) 07/25/2024 7:36 PM CDT Respiratory Rate 18 07/25/2024 7:36 PM CDT Oxygen Saturation 100% 07/25/2024 7:36 PM CDT Inhaled Oxygen Concentration - - Weight 93 kg (205 lb) 07/25/2024 7:36 PM CDT Height 160 cm (5' 3) 07/25/2024 7:36 PM CDT Body Mass Index 36.31 07/25/2024 7:36 PM CDT Plan of Treatment Health Maintenance Due Date Last Done Comments Pneumococcal vaccine <65 (1 of 1 - PPSV23, PCV20, or PCV21) 2006 04/12/2001, 02/10/2001, 2000 Regular Well Visit/Exam 18-64 2018 Cervical Cancer Screening 06/20/2023 06/20/2022 Chlamydia and Gonorrhea (GC/ CT) Screening 06/20/2023 06/20/2022 Depression Screening 03/12/2024 03/12/2023 Influenza Vaccine (#1) 2024 8, 06/03/2017, 12/10/2015, Additional history exists DTaP/Tdap/Td Vaccine (8 - Td or Tdap) 07/13/2030 07/13/2020, 10/01/2010, 10/08/2005, Additional history exists Hepatitis B Screening Completed 04/12/2001 , 04/12/2001, 2000, Additional history exists Varicella Vaccines Completed 11/05/2006, 0 10/20/2001, 09/19/2001 HPV Vaccines Completed 11/01/2013, 07/2012, 12/03/2012 Hepatitis C Screening Completed 06/20/2022 , 07/13/2020, 06/12/2020 Procedures Procedure Name Priority Date/Time Associated Diagnosis Comments PAP WITH REFLEX TO HIGH RISK HPV Routine 06/20/2022 3:39 PM NICK SETTER Encounter for supervision of normal first in first trimester Encounter for Papanicolaou smear for cervical cancer screening Screening for human papillomavirus (HPV) N. GONORRHOEAE/C. TRACHOMATIS AMPLIFICATION Routine 06/20/2022 3:22 PM NICK SETTER Encounter for supervision of normal first in first trimester Screening examination for STD (sexually transmitted disease) HEPATITIS C ANTIBODY Routine 06/20/2022 3:19 PM NICK SETTER Encounter for supervision of normal first in first trimester from Last 3 Months or Most Recently Relevant to Health Maintenance Results * Pap with reflex to High Risk HPV (06/20/2022 3:39 PM NICK SETTER) Thin prep (Pap test) 06/20/2022 3:39 PM NICK SETTER 06/26/2022 1:03 PM NICK SETTER Narrative PATHOLOGY [facility] - 06/30/2022 1:29 PM NICK SETTER EPIC results best viewed via link to PDF [address] [address] Tele: Barbara Felix MD - Petroleum Transport Driver CYTOLOGY REPORT Note to Patients: This report [...] the details. Patient Name: PAUL LAMAS Address: [address] [place] [address] Gender: F : 2000 (Age: 21) Service: Location: N : [id number] Hospital #: [id number] Patient Type: [facility] SPECIMEN Taken: 06/20/2022 Reported: 06/30/2022 Physician(s): Piper [...] recommended by your physician or nurse practitioner. us Piper Stephen MD LAB CYTOLOGY ORDERABLES Final Result Performing Organization Address [facility] Co de Phone Number PATHOLOGY [facility] Laboratory Receiving [address] [place] [address] * N. gonorrhoeae/C. trachomatis Amplification Endocervical (06/20/2022 3:22 PM NICK SETTER) C. trachomatis Not Detected Not Detected [facility] N. gonorrhoeae Not Detected Not Detected [facility] Comment: Testing performed by the [facility] Laboratory. This assay detects Chlamydia trachomatis and Neisseria gonorrhoeae by nucleic acid amplification testing (NAAT). This test is approved by the [facility] Food and Drug Administration and the performance characteristics have been verified by the laboratory. The performance characteristics of this test have not been evaluated in women or individuals less than 16 years of age. Endocervical (None) 06/20/19 3:22 PM NICK SETTER 06/20/2022 5:50 PM NICK SETTER Piper Stephen MD LAB MICROBIOLOGY - GENERAL OR DERABLES Final Result Performing Organization Address [facility] Co de Phone Number [facility] [address] Department [place] [address] * Hepatitis C antibody (06/20/2022 3:19 PM NICK SETTER) Hep C Ab Nonreactive Nonreactive [facility] Comment: Interpretive Data Nonreactive: Antibodies to HCV [...] revised on 2019. Blood 06/20/2022 3:19 PM NICK SETTER 06/20/2022 6:01 PM NICK SETTER Piper Stephen MD LAB MICROBIOLOGY - GENERAL OR DERABLES Edited Result - Final [facility] [address] Department [place] [address] from Last 3 Months or Most Recently Relevant to Health Maintenance Insurance [facility] Member Subscriber Plan / Payer (Ef fective 2024-Present) Name:Paul Lamas Relation to Subscriber:Self Name:Paul Lamas Payer ID:[id number] (NAIC) Type:MEDICAID RISK OTHER Address: [place] [id number] [employer] MEDICARE HMO Member Subscriber Plan / Payer (Ef fective 2024-Present) Name:Paul Lamas Relation to Subscriber:Self Name:Paul Lamas Payer ID:[id number] (NAIC) Type:MEDICARE RISK OTHER Address: [address] [facility] Advance Directives For more information, please contact: [phone] * Full Code (Latest Code Status on File) Date Activated Date Inactivated Comments 02/05/2023 10:05 AM 02/07/2023 3:12 PM * Full Code Date Activated Date Inactivated Comments 02/04/2023 8:28 AM 02/05/2023 10:05 AM Full CPR in case of cardiopulmonary arrest Care Teams Certified Pharmacy Technician Relationship Specialty Start Date End Date Jenni Clay NP [address] [place] [address] PCP - General Nurse Practitioner 07/26/24 Piper Stephen MD [address] [place] [address] Consulting Physician Obstetrics and Gynecology 06/10/22
--- OUTSIDE RECORDS SUMMARY | 2025-01-30 16:09 | XMS_ITS | Encounter Summary ---
Author Organization [facility] Address [address] [place] [address] Phone Care Team Providers Care Whale Trainer Name Role Phone Kristina Galicia Primary Care Pro vider Rick Gutierrez MD Unavailable [phone] Geraldine Bernabe MD Unavailable [phone] Jenni Clay MEDICAL RECORDS CUSTODIAN, FORK ASSEMBLER Primary Care Provider [phone] Venita Riggins MEDICAL RECORDS CUSTODIAN, FORK ASSEMBLER Unavailable + [phone] Romain Esqueda MD Unavailable [phone] Anamika Orozco APRN, FORK ASSEMBLER Unavailable Lucien Dominguez MD Unavailable Reason for Visit * Reason Comments Medication Refill Encounter Details Date Type Department Care Team (Late st Contact Info) Description 04/02/2023 Refill [facility] Group - Internal Medicine - [place] [address] [place] [phone] Kristina Galicia, [facility] [address] [place] [address] Medication Refill Social History Tobacco Use Types Packs/Day Years Used Date Smoking Tobacco: Never Smokeless Tobacco: Never Alcohol Use Standard Drinks/Week Comments Yes 0 (1 standard drink = 0.6 oz pur e alcohol) occasional PHQ-2 Answer Date Recorded Total Score - Questions 1-9 06/25 Education Answer Date Recorded What is [...] Coronavirus/COVID-19? No / Unsure 03/05/2023 10:12 AM DEMO EVENT SPECIALIST documented as of this encounter Miscellaneous Notes [...] Dept 03/23/23 Office Visit Kristina Galicia PAC [facility] 07/04/22 Office Visit Kristina Galicia [facility] Showing recent visits within past 365 days and meeting all other requirements Future Appointments Date Type Provider Dept 06/24/23 Appointment Kristina Galicia PAC [facility] Showing future appointments within next 90 days and meeting all other requirements EVENT SPECIALIST documented in this encounter Plan of Treatment Not on file documented as of this encounter Visit Diagnoses Not on filedocumented in this encounter Additional Health Concerns Assessment Noted Time PHQ-9 Depression Total Score: 023 3:00 PM DEMO EVENT SPECIALIST documented as of this encounter Care Teams Whale Trainer Relationship Specialty Start Date End Date GraysonKristina Camilla, [facility] [address] [place] [address] PCP - General Physician Director Outcomes 03/23/23 08/03/23 Jenni Clay APRN, FORK ASSEMBLER [address] [place] [address] PCP - General Family Medicine 08/04/23 Rick Gutierrez MD [address] [place] [phone] Consulting Physician Neurology 05/26/23 Geraldine Bernabe MD [address] [place] [address] Consulting Physician Gastroenterology 03/26/23 Venita Riggins APRN, FORK ASSEMBLER [address] [address] Nurse Practitioner Cardiology 09/29/23 11/06/24 Romain Esqueda MD [address] [phone] Consulting Physician General Surgery 11/12/23 Anamika Orozco APRN, FORK ASSEMBLER [address] [place] [address] Nurse Practitioner Advanced Practice Nurse 12/23/23 Lucien Dominguez MD [address] [place] [address] Consulting Physician Endocrinology 06/10/24 documented as of this encounter
--- OUTSIDE RECORDS SUMMARY | 2025-01-30 16:10 | XMS_ITS | Patient Health Record ---
Author Organization [facility] Address [address] [place] [address] Care Team Providers Care Car Body Mechanic Name Role Phone Yamilet Antonietta Primary Care Provider [phone] Allergies Allergen (clinical drug ingredient) Drug/Non Drug [...] 1 tablet at bedtime Orally Once a day; Duration: 30 days Active SEROquel 25 MG 1 tablet as needed Orally Once a day; Duration: 7 days Active WesTab One 2.5-25-1 MG [...] tablet in the morning Orally Once a day; Duration: 30 days Active Social History Sex Assigned At : Social History Observation Description Sex Assigned At Female Problems Problem Type SNOMED Code ICD Code Onset Dates Problem Status W/U Status Risk Notes Problem Borderline personality disorder () Borderline personality disorder (F60.3) Active confirmed Problem Bipolar 1 disorder (254745594) Bipolar 1 disorder (F31.9) Active confirmed Plan Of Treatment No Information Insurance Providers Payer Name Payer Address Payer Phone Subscriber Number Group Number Insured Name Patient Relationship to Insured Coverage Start Date Coverage End Date MEDICARE PART A [address] [place] [address] [id number] Jo Marin Self - patient is the insured 1 MEDICAID [address] [place] [address] [id number] Jo Marin Self - patient is the insured 1 Medical (General) History Surgical History Surgery Date(Month/Year) tonsillectomy and adenoidectomy septoplasty Hospitalization History Reason Date(Month/Year) Multiple hospitalizations in the past. S I and HI
--- OUTSIDE RECORDS SUMMARY | 2025-01-30 16:10 | XMS_ITS | CCD ---
Author Name Interface, [id number] [address] [facility] [place] [address] Reason for Visit Social History Date Name Value 06/03/2022 Sex Female
--- OUTSIDE RECORDS SUMMARY | 2025-01-30 16:10 | XMS_ITS | CCD ---
Author Name Interface, [id number] [address] [facility] [place] [address] Reason for Visit Social History Date Name Value 06/03/2022 Sex Female
--- NOTE | 2025-01-30 16:21 | ED.UPPEXIN ---
HPI - Extremity Injury (Upper) General Chief Complaint: Extremity Injury, Upper Stated Complaint: right hand thumb/wrist area injury Time Seen by Provider: 01/30/25 16:12 Source: patient and RN notes reviewed Mode of arrival: ambulatory Limitations: no limitations History of Present Illness HPI narrative: 24-year-old female patient presents today complaining of pain to the left thumb. Two days ago she was reaching back and struck her thumb on a door, causing immediate pain and some swelling to the dorsum. Pain radiates to the dorsum of the hand and wrist. Denies numbness or tingling. Currently rates her pain 07/04 and has tried no OTC interventions prior to arrival. Related Data Home Medications ?Medication ?Instructions ?Recorded ?Confirmed ?Last Taken ?Type bupropion HCl 300 mg 24 hr tablet, 300 mg PO DAILY 05/30/22 01/30/25 Unknown History extended release levothyroxine 75 mcg tablet 75 mcg PO DAILY 05/30/22 01/30/25 Unknown History omeprazole 40 mg capsule,delayed 40 mg PO DAILY 05/30/22 01/30/25 Unknown History release carbamazepine 200 mg tablet 200 mg PO BID 02/11/23 01/30/25 Unknown History lithium carbonate 300 mg 300 mg PO DAILY 11/27/23 01/30/25 Unknown History tablet,extended release lithium carbonate 450 mg 450 mg PO DAILY 11/27/23 01/30/25 Unknown History tablet,extended release lumateperone 10.5 mg capsule 10.5 mg PO DAILY 11/27/23 01/30/25 Unknown History (Caplyta) ondansetron 4 mg disintegrating mg 01/30/25 Unknown History tablet Allergies Allergy/AdvReac Type Severity Reaction Status Date / Time cinnamon Allergy Severe Swelling Verified 01/30/25 15:49 of Lip/Tongue/Throat latex Allergy Mild Hives Verified 01/30/25 15:49 albuterol AdvReac Severe Anaphylaxis Verified 01/30/25 15:49 banana AdvReac Severe Anaphylaxis Verified 01/30/25 15:49 adhesive tape AdvReac Mild Hives Verified 01/30/25 15:49 amoxicillin AdvReac Mild Nausea and Verified 01/30/25 15:49 Vomiting grape flavor AdvReac Mild Nausea and Verified 01/30/25 15:49 Vomiting hydrocodone (From [place]) AdvReac Mild Nausea and Verified 01/30/25 15:49 Vomiting prochlorperazine (From AdvReac Mild Anxiety Verified 01/30/25 15:49 Compazine) [facility] Past Medical History Medical History COVID-14 January 2020 Deviated septum Panic disorder Borderline personality disorder Bipolar disorder Depression Anxiety Surgical History Surgical History H/O nasal septoplasty Hx of tonsillectomy No significant past surgical history Family History Family History Father Schizophrenia Mother Bipolar disorder Social History Social History Smoking status: Never smoker Alcohol intake: never Substance use: never Living arrangements: alone Occupation/Education: occupation Additional occupation/education comments: works at [employer] Gender identity (if verbalized by the patient): Female Sexual Orientation (if Verbalized by the Patient): Straight or Heterosexual Spiritual care concerns: No Comments At time of signature, I have reviewed and agree with nursing past medical, surgical, social and family history unless otherwise noted. Please see nursing chart for further information. There is no relevant family history pertinent to the presenting complaint Exam Narrative: GENERAL: Well-appearing, well-nourished, and in no acute distress. HEAD: Normocephalic, atraumatic. EYES: EOMI. No redness or drainage. Conjunctivae normal. ENT: Mucous membranes pink and moist. NECK: Normal AROM. CHEST: No respiratory distress. EXTREMITIES: Left 1st finger: Scant edema to the proximal phalanx with mild tenderness to palpation. Full range of motion with very mild pain. No snuffbox tenderness. No tenderness to the 1st metacarpal. Distal sensation intact. Capillary refill normal. SKIN: Warm, dry, no rash. Capillary refill normal. Normal skin turgor. NEURO: No focal deficits. Alert and oriented x3. Gait steady. PSYCH: Normal affect. No signs of depression or anxiety. Course Course Level of Care: Express Care Visit Vital Signs Vital signs: Vital Signs Temperature 98.1 F 01/30/25 15:53 Pulse Rate 91 10/06/25 15:53 Respiratory Rate 16 01/30/25 15:53 Blood Pressure 134/70 01/30/25 15:53 Pulse Oximetry 100 01/30/25 15:53 Oxygen Delivery Room Air 01/30/25 15:53 Temperature 98.1 F 01/30/25 15:53 Pulse Rate 91 01/30/25 15:53 Respiratory Rate 16 01/30/25 15:53 Blood Pressure 134/70 01/30/25 15:53 Pulse Oximetry 100 01/30/25 15:53 Oxygen Delivery Room Air 01/30/25 15:53 Reviewed MDM - Extremity Injury (Upper) MDM Narrative Medical decision making narrative: 24-year-old female patient presents today complaining of pain to the left thumb. Two days ago she was reaching back and struck her thumb on a door, causing immediate pain and some swelling to the dorsum. Pain radiates to the dorsum of the hand and wrist. No OTC interventions prior to arrival. Upon exam, Scant edema to the proximal phalanx with mild tenderness to palpation. Full range of motion with very mild pain. No snuffbox tenderness. No tenderness to the 1st metacarpal. Neurovascularly intact. Considering patient's exam and history, I do not feel an xray is indicated, but patient is requesting one just in case.X-rays negative. Recommend ice and OTC medication for pain if needed. Follow-up in 7-10 days if symptoms persist. Vital signs stable. Patient agrees with plan. Anticipatory guidance given. Differential Diagnosis Differential diagnosis: Likely other (Finger contusion, sprain) Imaging Data Radiologist's impression: ITS Impressions Finger X-Ray 01/30/25 16:31 Impression: No acute fracture or malalignment. Critical Care Time Critical Care Time Critical Care Time: No Discharge Plan Discharge Clinical Impression: Contusion of finger of left hand Qualifiers: Encounter type: initial encounter Finger: thumb Damage to nail status: without damage Qualified Code(s): S60.012A - Contusion of left thumb without damage to nail, initial encounter Patient Disposition: Home Condition: Stable Instructions: Contusion in Adults (ED) Additional Instructions: Your x-ray is negative. Continue ice and OTC medications such as Tylenol or ibuprofen for pain, if able. Follow-up with your PCP in 7-10 days if symptoms are not improving. Your blood pressure was elevated above 120/80 today at Urgent Care. This puts you above the threshold for follow up. Please schedule a followup visit with your personal physician as soon as possible, for further evaluation and treatment. Even blood pressure exceeding 120/80 may indicate pre-hypertension. Patient Language: Turkish Prescriptions: No Action omeprazole 40 mg capsule,delayed release(DR/EC) 40 mg PO DAILY levothyroxine 75 mcg tablet 75 mcg PO DAILY bupropion HCl 300 mg tablet extended release 24 hr 300 mg PO DAILY loratadine [Claritin] 10 mg tablet 10 mg PO DAILY Qty: 30 0RF carbamazepine 200 mg tablet 200 mg PO BID Caplyta 10.5 mg capsule 10.5 mg PO DAILY lithium carbonate 300 mg Tablet Extended Release 300 mg PO DAILY lithium carbonate 450 mg Tablet Extended Release 450 mg PO DAILY ondansetron 4 mg tablet,disintegrating Follow-up/Referrals: Danna,Jenni Herron APN [Primary Care Provider, Unknown] Time of Disposition: 16:47
== END 2025-01-30 16:49 | disposition home or self-care (01) ==
PROVIDERS: Emergency Provider Nurse Practitioner; PCP Nurse Practitioner Family
DX: S60.012A Contusion of left thumb without damage to nail, initial encounter (principal); W22.8XXA Striking against or struck by other objects, initial encounter; F41.9 Anxiety disorder, unspecified; F31.9 Bipolar disorder, unspecified; Z86.16 Personal history of COVID-19
CPT/HCPCS: 73140; 99213; G0463

== ENCOUNTER 2025-03-30 08:58 | Emergency (ER) | payer OTHER, SELFPAY ==
--- OUTSIDE RECORDS SUMMARY | 2024-06-27 09:30 | XMS_ITS ---
Author Organization [facility] [employer] [facility] Address [address] [place] [phone] Care Team Providers Care Pcu Rn Name Role Phone Jenni Young Primary Care Provider Joseph Cook Unavailable [phone] REASON FOR VISIT Pt R/S this appointment and this appointment was not removed till day of Social History Sex Assigned At : Social History Observation Description Sex Assigned At Female Encounters Encounter Location Date Provider Diagnosis [facility] [employer] [address] [address] 06/27/2024 Joseph Garcia Plan Of Treatment Next Appt Details Provider Name:Joseph neff, 04/17/2025 09:00:00 AM, [address] [place] [address], [address], [address], Progress Notes * PAUL LAMAS MDOB: 1 (24 yo F)Acc No.[id number]:06/27/2024 Patient: Gabriela PAUL COMER Provider: TRAVIS GUTIERREZ :2000 A ge:23 Y S ex:Female Date:06/27/2024 Phone: Address:[address] [place], [place] [address] 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
--- OUTSIDE RECORDS SUMMARY | 2024-08-05 08:00 | XMS_ITS ---
Author Organization [facility] Address [address] [place] [address] [address] Care Team Providers Care Hospital Manager Name Role Phone Jenni Young Primary Care Provider Joseph Cook Unavailable [phone] Yumiko Puri [phone] REASON FOR VISIT Pt canceled on 08/02 Social History Sex Assigned At : Social History Observation Description Sex Assigned At Female Encounters Encounter Location Date Provider Diagnosis [facility] [employer] [address] [address] 08/05/2024 Yumiko Puri Plan Of Treatment Next Appt Details Provider Name:Joseph neff, 04/17/2025 09:00:00 AM, [address] [place] [address] [address], [facility] [address], [place], [address], Progress Notes * PAUL LAMAS MDOB: 1 (24 yo F)Acc No.[id number]:08/05/2024 Patient: PAUL ALCALA Provider: Gabriela PURI LCSW :2000 A ge:23 Y S ex:Female Date:08/05/2024 Phone: Address:[address] [place], [place] [address] [facility] [address] [id number] Pcp:Jenni STEPHEN Data: * Chief Complaints: * P t canceled on 08/02 Billing Information: * Procedure Codes: * Electronic signature of Yumiko Puri LCSW on 03/30/2025 at 09:30 AM EDUCATIONAL ADVISOR Sign off status: Pending Signatures: No Ad Hoc Signature Added * Provider: Gabriela PURI LCSW Date: 0 08/05/2024 Generated for Amber duval/Terrell/Rita on: 1 05/31/2024 09:30 AM EDUCATIONAL ADVISOR
--- OUTSIDE RECORDS SUMMARY | 2025-03-22 02:45 | XMS_ITS ---
Author Organization [facility] Address [address] [place] [address] [address] [facility] [address] [place] [address] Care Team Providers Care Plumber Apprentice Name Role Phone Jenni Young Primary Care Provider Joseph Cook [phone] REASON FOR VISIT Follow Up Social History Sex Assigned At : Social History Observation Description Sex Assigned At Female Encounters Encounter Location Date Provider Diagnosis [facility] [address] [facility] [address] [place] [address] 03/22/2025 Joseph Garcia Plan Of Treatment Next Appt Details Provider Name:Joseph neff, 04/17/2025 09:00:00 AM, [address] [address], [facility] [address], [place], [address], Progress Notes * PAUL LAMAS MDOB: 1 (24 yo F)Acc No.[id number]:03/22/2025 Patient: Gabriela PAUL COMER Provider: TRAVIS GUTIERREZ :2000 A ge:24 Y S ex:Female Date:03/22/2025 Phone: Address:[facility] [address] [facility] Pcp:Jenni STEPHEN Subjective: * Chief Complaints: * F ollow Up Billing Information: * Procedure Codes: * Electronic signature of TRAVIS Rasmussen on 03/30/2025 at 09:29 AM TEACHER OF THE HEARING IMPAIRED Sign off status: Pending * Provider: TRAVIS GUTIERREZ Date: 05/22/2024 Generated for Amber duval/Terrell/Rita on: 1 05/31/2024 09:29 AM TEACHER OF THE HEARING IMPAIRED
[2025-03-30 09:08] VITALS: BP 149/68; PULSE 114; RESP 20; TEMP 36.6; O2SAT 100
--- OUTSIDE RECORDS SUMMARY | 2025-03-30 09:28 | XMS_ITS | Clinical Summary ---
Author Organization [email or web address] Address [address] [place] [address] Care Team Providers Care Alterations Supervisor Name Role Phone Unknown, Provider Primary Care Provider Unavaila ble Source Comments [facility],non-owned Affiliates and Associated Physician Practices is amultiple site organization consisting of ambulatory clinics and hospital sitesin [place], [place], [place] and [place]. This disclosure is being madepursuant to the Care Everywhere program and may not contain all information available regarding this patient. Last updated 18.[email or web address] Allergies Active Allergy Reactions Criticality Noted Date [...] on file Legal Sex Female 6:49 AM FEDERAL LAW CLERK Gender Identity Not on file Sexual Orientation Not on file Last Filed Vital Signs Vital Sign Reading Time Taken Comments Blood Pressure 120/80 11/10/2024 9:27 AM CDT Pulse 121 06/24/2019 3:19 PM FEDERAL LAW CLERK Temperature 35.9 C (96.7 F) 06/24/2019 3:19 PM FEDERAL LAW CLERK Respiratory Rate - - Oxygen Saturation 97% 06/24/2019 3:19 PM FEDERAL LAW CLERK Inhaled Oxygen Concentration - - Weight 94.8 kg (209 lb) 11/10/2024 9:27 AM CDT Height 160 cm (5' 3) 11/10/2024 9:27 AM CDT Body Mass Index 37.02 11/10/2024 9:27 AM CDT Plan of Treatment Health Maintenance Due Date Last Done Comments HIV SCREENING 09/21/2015 HPV VACCINE (1 - 3-dose series) 09/21/2015 HEPATITIS C SCREENING 09/16/2018 DTAP/TDAP/TD VACCINES (1 - Tdap) 09/21/2019 HEPATITIS B VACCINE (1 of 3 - 19+ 3-dose series) 09/21/2019 CHLAMYDIA/GONORRHEA SCREENING 06/20/2023 06/20/2022 MEDICARE AWV CALENDAR YEAR 2024 COVID-19 VACCINE (1 - season) 2024 INFLUENZA VACCINE (#1) 2024 [...] age to complete this topic Insurance MEDICARE MEDICAID - OUT OF STATE MEDICARE [employer] MEDICARE ADV D-SNP & C-SNP [facility] MEDICAID - OUT OF STATE MEDICARE Care Teams Alterations Supervisor Relationship Specialty Start Date End Date Unknown, Provider PCP - General 03/30/23
--- OUTSIDE RECORDS SUMMARY | 2025-03-30 09:28 | XMS_ITS | Patient Health Record ---
Author Organization [facility] Address [address] [place] [address] Phone [phone] Care Team Providers Care Iuss Analyst Name Role Phone Antonietta Woodard Primary Care Provider [phone] Allergies Allergen (clinical drug ingredient) Drug/Non Drug [...] Frequency, Duration) Notes Start Date End Date Diagnosis (ICD Code) Status SEROquel 200 MG Tablet 1 tablet at bedtime Orally Once a day; Duration: 30 days Bipolar 1 disorder (ICD_10 - F31.9) Active SEROquel 25 MG Tablet 1 tablet as needed Orally Once a day; Duration: 7 days Bipolar 1 disorder (ICD_10 - F31.9) Active WesTab One 2.5-25-1 MG Tablet 1 tablet Orally Once a day Active Zofran ODT 4mg as needed Active Levothyroxine Sodium 75 MCG Capsule 1 capsule in the morning on an empty stomach Orally Once a day Active Omeprazole 40 MG Capsule Delayed Release 1 capsule 30 minutes before morning meal Orally Twice daily Active buPROPion HCl ER (XL) 300 MG Tablet Extended Release 24 Hour 1 tablet in the morning Orally Once a day; Duration: 30 days Bipolar 1 disorder (ICD_10 - F31.9) Active Social History Sex Observation Social History Observation Description Sex Observation Female Gender Identity Social History Observation Description Gender Identity Female Social History Primary Social History Social Info Question Answer Notes Living Arrangement Living Arrangement: Dependent Ru bush Living with: Parent(s) Is this a supportive environment? Yes Employment Status Employment Status: On Disability Illicit Substance Usage Illicit Substance Usage: No Alcohol Use Alcohol Use Frequency: Never Problems Problem Type SNOMED Code ICD Code Dates Problem Status W/U Status Risk Notes Problem Borderline personality disorder (38529952) Borderline personality disorder (F60.3) Added On:2022 Active confirmed Problem Bipolar 1 disorder (151619074) Bipolar 1 disorder (F31.9) Added On:2022 Active confirmed Plan Of Treatment No Information Insurance Providers Payer Name Payer Address Payer Phone Subscriber Number Group Number Insured Name Patient Relationship to Insured Coverage Start Date Coverage End Date MEDICARE PART A [address] [place] [address] [id number] Tomas Jo Self - patient is the insured 1 MEDICAID [address] [place] [address] [id number] Tomas Jo Self - patient is the insured 1 Medical (General) History Surgical History Surgery Date(Month/Year) tonsillectomy and adenoidectomy septoplasty Hospitalization History Reason Date(Month/Year) Multiple hospitalizations in the past. S I and HI
--- OUTSIDE RECORDS SUMMARY | 2025-03-30 09:28 | XMS_ITS | Encounter Summary ---
Author Organization [facility] Address [address] [place] [address] Phone Care Team Providers Care Gas Cutting Machine Operator Name Role Phone Rick Gutierrez MD Unavailable [phone] Geraldine Bernabe MD Unavailable [phone] Jenni Clay DAIRY QUALITY ASSURANCE OFFICER, PROGRAM EVALUATION CONSULTANT Primary Care Provider [phone] Venita Riggins APRN, PROGRAM EVALUATION CONSULTANT Unavailable + [phone] Romain Esqueda MD Unavailable [phone] Anamika Orozco APRN, PROGRAM EVALUATION CONSULTANT Unavailable Lucien Dominguez MD Unavailable Reason for Visit * Reason Comments Medication Refill Encounter Details Date Type Department Care Team (Late st Contact Info) Description 08/10/2024 Refill [facility] - Gastroenterology - [place] [address] [place] [address] Anamika Orozco APRN, PROGRAM EVALUATION CONSULTANT [address] [place] [address] Medication Refill Social History Tobacco Use Types Packs/Day Years Used Date Smoking Tobacco: Never Smokeless Tobacco: Never Alcohol Use Standard Drinks/Week Comments Not Currently 0 (1 standard drink = 0.6 oz pur e alcohol) occasional [facility] Utilities Answer Date Recorded In the past 12 months has [employer], gas, oil, or water company threatened to [...] How often do you attend baptism or orthodoxy serv ices? Never 06/15/2023 Do you belong [...] Total Score - Questions 1-9 12 06/25 [facility] - Occupational Stress [...] place to sleep or slept in a half-way (including now)? Yes 06/15/2023 Education Answer Date [...] Depression Total Score: 12 023 3:00 PM PIPE COREMAKER documented as of this encounter Care Teams Gas Cutting Machine Operator Relationship Specialty Start Date End Date Jenni Clay APRN, JUANITA [address] [place] [address] PCP - General Family Medicine 08/04/23 Rick Gutierrez MD [address] [place] [phone] Consulting Physician Neurology 05/26/23 Geraldine Bernabe MD [address] [place] [address] Consulting Physician Gastroenterology 03/26/23 Venita Riggins APRN, PROGRAM EVALUATION CONSULTANT [address] [address] Nurse Practitioner Cardiology 09/29/23 11/06/24 Romain Esqueda MD [address] [phone] Consulting Physician General Surgery 11/12/23 Anamika Orozco APRN, PROGRAM EVALUATION CONSULTANT [address] [place] [address] Nurse Practitioner Advanced Practice Nurse 12/23/23 Lucien Dominguez MD [address] [phone] Consulting Physician Endocrinology 06/10/24 documented as of this encounter
--- OUTSIDE RECORDS SUMMARY | 2025-03-30 09:28 | XMS_ITS | Encounter Summary ---
Author Organization [facility] Address [address] [place] [address] Phone Care Team Providers Care Health And Physical Education Professor Name Role Phone Rick Gutierrez MD Unavailable [phone] Geraldine Bernabe MD Unavailable [phone] Jenni Clay PERSONNEL ARBITRATOR, DEMOLITION CRANE OPERATOR Primary Care Provider [phone] Venita Riggins APRN, DEMOLITION CRANE OPERATOR Unavailable + [phone] Romain Esqueda MD Unavailable [phone] Anamika Orozco PERSONNEL ARBITRATOR, DEMOLITION CRANE OPERATOR Unavailable Lucien Dominguez MD Unavailable Reason for Visit * Reason Comments Medication Refill Encounter Details Date Type Department Care Team (Late st Contact Info) Description 08/26/2023 Refill [facility] - Internal Medicine - [place] [address] [place] [address] Kristina Galicia, [facility] [address] [place] [address] Medication Refill Social History Tobacco Use Types Packs/Day Years Used Date Smoking Tobacco: Never Smokeless Tobacco: Never Alcohol Use Standard Drinks/Week Comments Yes 0 (1 standard drink = 0.6 oz pur e alcohol) occasional [facility] Utilities Answer Date Recorded In the past 12 months has [employer], gas, oil, or water [employer] threatened to shut off services in your home? Yes 06/15/2023 Social Connection and Isolation Panel Answer Date Recorded In a typical week, how many times do you talk on the phone with family, friends, or neighbors? Once a week 06/15/2023 How often do you get together with friends or re latives? Once a week 06/15/2023 How often do you attend synagogue or jain serv ices? Never 06/15/2023 Do you belong to any clubs o r organizations such as synagogue groups, unions, fraternal or athletic groups, or [...] Total Score - Questions 1-9 12 06/25 [facility] - Occupational Stress Questionnaire Answer Date [...] Depression Total Score: 12 023 3:00 PM PROFESSOR OF PSYCHOLOGY documented as of this encounter Care Teams Health And Physical Education Professor Relationship Specialty Start Date End Date Jenni Clay APRN, JUANITA [address] [place] [address] PCP - General Family Medicine 08/04/23 Rick Gutierrez MD [address] [place] [address] Consulting Physician Neurology 05/26/23 Geraldine Bernabe MD [address] [place] [address] Consulting Physician Gastroenterology 03/26/23 Venita Riggins APRN, DEMOLITION CRANE OPERATOR [address] [place] [address] [address] Nurse Practitioner Cardiology 09/29/23 11/06/24 Romain Esqueda MD [address] [place] [address] [address] Consulting Physician General Surgery 11/12/23 Anamika Orozco APRN, DEMOLITION CRANE OPERATOR [address] [place] [address] Nurse Practitioner Advanced Practice Nurse 12/23/23 Lucien Dominguez MD [address] [place] [address] [address] Consulting Physician Endocrinology 06/10/24 documented as of this encounter
--- OUTSIDE RECORDS SUMMARY | 2025-03-30 09:29 | XMS_ITS | Patient Health Record ---
Author Organization [facility] Address [address] [place], [place] [address] Support Name Relationship Address Phone Jo Marin Guarantor Unknown [phone] Reason For Referral No Information Plan Of Treatment No Information Insurance Providers Payer Name Payer Address Payer Phone Subscriber Number Group Number Insured Name Patient Relationship to Insured Coverage Start Date Coverage End Date Medicare [address] [place] [id number] [phone] [id number] Jo Marin Self - patient is the insured
--- OUTSIDE RECORDS SUMMARY | 2025-03-30 09:29 | XMS_ITS | Clinical Summary ---
Author Organization [facility] Address [address] [place] [address] Phone Care Team Providers Care Report Clerk Name Role Phone Rick Gutierrez MD Unavailable Geraldine Bernabe MD Unavailable [phone] Jenni Clay APRN, ROTO MIXER OPERATOR Primary Care Provider [phone] Romain Esqueda MD Unavailable Anamika Orozco APRN, ROTO MIXER OPERATOR Unavailable Lucien Dominguez MD Unavailable Allergies Active [...] Department Care Team Description 01/04/2025 Nurse Triage [facility] [address] [place] [address] Clay, Jenni, HABILITATIVE INTERVENTIONIST, ROTO MIXER OPERATOR Rapid Heart Rate from Last 3 Months Immunizations Immunization Administration [...] = 0.6 oz pur e alcohol) occasional [facility] Utilities Answer Date Recorded In [...] week 06/15/2023 How often do you attend latter day or christianity serv ices? Never 06/15/2023 Do you belong to any clubs o r organizations such as latter day groups, unions, fraternal or athletic groups, or [...] Total Score - Questions 1-9 12 06/25 [facility] [place] of Occupat ional Health - Occupational Stress [...] Comments Blood Pressure 123/69 06/10/2024 1:47 PM MANAGER COMMERCIAL SALES Pulse 87 06/10/2024 1:47 PM MANAGER COMM[employer] Temperature 36.4 C (97.5 F) 06/10/2024 1:47 PM MANAGER COMM[employer]CIAL SALES Respiratory Rate 22 06/10/2024 1:47 PM MANAGER COMMERCIAL SALES Oxygen Saturation 98% 06/10/2024 1:47 PM MANAGER COMMERCIAL SALES Inhaled Oxygen Concentration - - Weight 95.3 kg (210 lb) 06/10/2024 1:47 PM MANAGER COMMERCIAL SALES Height 160 cm (5' 3) 12/23/2023 1:06 [...] 01/17/2002, 02/10/2001, Additional history exists Varicella Immunization Completed 7, 10/20/2001, 09/19/2001 Human Papillomavirus (HPV) Immunization Completed 11/01/2013, 03/30/2013, 12/03/2012 Meningococcal Immunization (ACWY) Completed 10/03/2016, 11/26/2011 Meningococcal B Immunization Discontinued 07/27/2017, 06/03/2017 TdaP Immunization Discontinued 11/25/2022, , 10/01/2010 Rotavirus Immunization Aged Out No lo nger eligible based on patient's age to complete this topic Insurance MEDICARE C [employer] Care Teams Report Clerk Relationship Specialty Start Date End Date Jenni Clay APRN, ROTO MIXER OPERATOR [address] [place] [address] PCP - General Family Medicine 08/04/23 Rick Gutierrez MD [address] [place] [address] Consulting Physician Neurology 05/26/23 Geraldine Bernabe MD [address] [place] [address] Consulting Physician Gastroenterology 03/26/23 Romain Esqueda MD [address] [address] Consulting Physician General Surgery 11/12/23 Anamika Orozco APRN, ROTO MIXER OPERATOR [address] [place] [address] Nurse Practitioner Advanced Practice Nurse 12/23/23 Lucien Dominguez MD [address] [facility] [address] [address] Consulting Physician Endocrinology 06/10/24
--- OUTSIDE RECORDS SUMMARY | 2025-03-30 09:30 | XMS_ITS | Clinical Summary ---
Author Organization [facility] Address [address] [place] [address] Phone Care Team Providers Care Galley Cook Name Role Phone Unavailable Primary Care Provider [...] on file Legal Sex Female 12:18 PM FELT HAT FLANGING OPERATOR Gender Identity Not on file Sexual Orientation Not on file Last Filed Vital Signs Vital Sign Reading Time Taken Comments Blood Pressure 138/70 04/16/2019 3:50 PM FELT HAT FLANGING OPERATOR Pulse 82 04/16/2019 12:25 PM FELT HAT FLANGING OPERATOR Temperature 36.7 C (98 F) 04/16/2019 12:25 PM FELT HAT FLANGING OPERATOR Respiratory Rate 16 04/16/2019 3:50 PM FELT HAT FLANGING OPERATOR Oxygen Saturation 99% 04/16/2019 3:50 PM FELT HAT FLANGING OPERATOR Inhaled Oxygen Concentration - - Weight 90.7 kg (200 lb) 04/16/2019 12:25 PM FELT HAT FLANGING OPERATOR Height 160 cm (5' 3) 04/16/2019 12:25 PM FELT HAT FLANGING OPERATOR Body Mass Index 35.43 04/16/2019 12:25 PM FELT HAT FLANGING OPERATOR Plan of Treatment Health Maintenance Due Date Last Done Comments HPV VACCINES (1 - 3-dose series) 09/21/2015 DTAP/TDAP/TD VACCINES (1 - Tdap) 09/21/2019 HEPATITIS B VACCINES (1 of 3 - 19+ 3-dose series) 08/26 CERVICAL CANCER SCREENING 2021 HPV/Cotest (21-29) 2021 PAP SMEAR 2021 INFLUENZA VACCINE (#1) 2024 [place] [address] [facility] MEDICAID
--- OUTSIDE RECORDS SUMMARY | 2025-03-30 09:30 | XMS_ITS | Encounter Summary ---
Author Organization [facility] Address [address] [place] [address] Phone Care Team Providers Care Machine Stripper Cutter Name Role Phone Provider, None Primary Care Provider Unavailabl e Kristina Galicia PAC Primary Care Pro vider Provider, Not On File Primary Care Provider Unav ailable Kristina Galicia PAC Primary Care Pro vider Rick Gutierrez MD Unavailable [phone] Geraldine Bernabe MD Unavailable [phone] Jenni Clay LASERIST, RFID ENGINEER Primary Care Provider Venita Riggins LASERIST, RFID ENGINEER Unavailable + [phone] Romain Esqueda MD Unavailable [phone] Anamika Orozco LASERIST, RFID ENGINEER Unavailable Lucien Dominguez MD Unavailable Reason for Visit * Reason Comments Medication Refill Encounter Details Date Type Department Care Team (Late st Contact Info) Description 07/21/2022 Refill [facility] - Internal Medicine - [place] [address] [place] [address] Kristina Galicia, PAC [address] [place] [address] Medication Refill Social History Tobacco Use Types [...] PM CDT documented as of this encounter Functional Status * Question Answer Date of Assessment Author Best Eye Response 4-->(E4) spontaneous 10:36 PM CDT Mustapha Orozco RN Best Verbal Response 5-->(V5) oriented 10:36 PM CDT Mustapha Orozco RN Best Motor Response 6-->(M6) obeys commands 06/26 10:36 PM CDT Mustapha Orozco RN Orange Coma Scale Score 15 07/21/2022 10:36 PM CDT Mustapha Orozco RN * Question Answer Date of Assessment Author Pain Description constant 07/21/2022 10:35 PM CDT Mustapha Orozco RN (0-10) Pain Rating: Activity 0 07/21/2022 1 1:53 PM CDT Mustapha Orozco RN (0-10) Pain Rating: Rest 0 07/21/2022 11:53 PM CDT Mustapha Orozco RN * Question Answer Date of Assessment Author SpO2 100 07/21/2022 11:45 PM CDT Mustapha Leone RN O2 Device None (Room air) 07/21/2022 8:08 PM CDT Christine Christy RN * Question Answer Date of Assessment Author BP 118/81 07/21/2022 11:45 PM CDT [place], [place] Anderson RN Temp 100.4 07/21/2022 11:45 PM CDT [place], Mustapha Anderson RN Pulse 120 07/21/2022 11:45 PM CDT [place], Mustapha Anderson RN Resp 29 07/21/2022 11:45 PM CDT [place], Mustapha Anderson RN Heart Rate (Monitor) 121 07/21/2022 11:45 PM CDT [place] RN * Safety Factors Answer Date of Assessment Author bed in low position;call light in reach 07/22/19 8:09 PM Christine Fatima RN * Question Answer Date of Assessment Author Chest Pain Location other (see comments) 07/21/2022 11 :17 PM Mustapha Paulino RN documented as of this encounter Mental Status * Question Answer Entry Date Author Best Eye Response 4-->(E4) spontaneous 10:36 PM CDT [place] RN Best Verbal Response 5-->(V5) oriented 10:36 PM CDT [place] RN Best Motor Response 6-->(M6) obeys commands 06/26 10:36 PM ELICEOT [place] Lopez RN Orange Coma Scale Score 15 07/21/2022 10:36 PM CDT [place] Lopez RN * Question Answer Entry Date Author Pain Description constant 07/21/2022 10:35 PM CDElias MaldonadoFairbanksMustapha Lopez RN (0-10) Pain Rating: Activity 0 07/21/2022 1 1:53 PM Mustapha Paulino RN (0-10) Pain Rating: Rest 0 07/21/2022 11:53 PM Mustapha Paulino RN * Question Answer Entry Date Author SpO2 100 07/21/2022 11:45 PM ELICEOT [place] Mustapha mireles RN O2 Device None (Room air) 07/21/2022 8:08 PM CDT Christine Christy RN * Question Answer Entry Date Author BP 118/81 07/21/2022 11:45 PM CDT [place], Mustapha Anderson RN Temp 100.4 07/21/2022 11:45 PM CDT [place], Mustapha Anderson RN Pulse 120 07/21/2022 11:45 PM CDT [place], Mustapha Anderson RN * Safety Factors Answer Entry Date Author bed in low position;call light in reach 07/22/19 8:09 PM CDT Christine Abarca RN * Question Answer Entry Date Author Chest Pain Location other (see comments) 023 11:17 PM CDT [place], Mustapha Anderson RN documented in this encounter Miscellaneous Notes * Telephone Encounter [...] Type Provider Dept 07/04/22 Office Visit Kristina Galicia, JESSIE Moralesrachelle Lafe Showing recent visits within past 365 days and meeting all other requirements Future Appointments Date Type Provider Dept 10/06/22 Appointment Kristina Galicia, JESSIE Moralesrachelle Lafe Showing future appointments within next 90 days [...] Depression Total Score: 12 023 3:00 PM SURFACE WATER TECHNICIAN documented as of this encounter Care Teams Machine Stripper Cutter Relationship Specialty Start Date End Date Provider, None [place] PCP - General 09/11/21 08/12/22 Kristina Galicia, PAC [place] PCP - General Physician Bottle House Quality Control Technician 08/13/22 10/03/22 Provider, Not On File [place] PCP - General 10/04/22 03/22/23 Kristina Galicia, PAC [address] [place] [address] PCP - General Physician Bottle House Quality Control Technician 03/23/23 08/03/23 Jenni Clay APRN, RFID ENGINEER [address] [place] [address] PCP - General Family Medicine 08/04/23 Rick Gutierrez MD [address] [place] [address] Consulting Physician Neurology 05/26/23 Geraldine Bernabe MD [address] [place] [address] Consulting Physician Gastroenterology 03/26/23 Venita Riggins APRN, RFID ENGINEER [address] [address] Nurse Practitioner Cardiology 09/29/23 11/06/24 Romain Esqueda MD [address] [address] Consulting Physician General Surgery 11/12/23 Anamika Orozco APRN, RFID ENGINEER [address] [place] [address] Nurse Practitioner Advanced Practice Nurse 12/23/23 Lucien Dominguez MD [address] [phone] Consulting Physician Endocrinology 06/10/24 documented as of this encounter
--- OUTSIDE RECORDS SUMMARY | 2025-03-30 09:30 | XMS_ITS | CCD ---
Author Name Interface, [id number] lity Address [address], [place] [address] Organization [facility] Address [facility] [place], [place] [address] Reason for Visit Social History Date Name Value 06/03/2022 Sex Female
--- OUTSIDE RECORDS SUMMARY | 2025-03-30 09:30 | XMS_ITS | Encounter Summary ---
Author Organization [facility] Address [address] [place] [address] Phone Care Team Providers Care Breakfast Server Name Role Phone Kristina Galicia PAC Primary Care Pro vider Rick Gutierrez MD Unavailable [phone] Geraldine Bernabe MD Unavailable [phone] Jenni Clay ENROBING MACHINE FEEDER, COUNTY ASSESSOR Primary Care Provider [phone] Venita Riggins ENROBING MACHINE FEEDER, COUNTY ASSESSOR Unavailable + [phone] Romain Esqueda MD Unavailable [phone] Anamika Orozco ENROBING MACHINE FEEDER, COUNTY ASSESSOR Unavailable Lucien Dominguez MD Unavailable Reason for Visit * Reason Comments Medication Refill Encounter Details Date Type Department Care Team (Late st Contact Info) Description 04/02/2023 Refill [facility] - Internal Medicine - [place] [address] [place] [id number] Kristina Galicia, [facility] [address] [place] [address] Medication Refill Social History Tobacco Use Types [...] Coronavirus/COVID-19? No / Unsure 03/05/2023 10:12 AM ADMISSION NURSE documented as of this encounter Miscellaneous Notes [...] 07/04/22 Office Visit Kristina Galicia PAC [facility] [place] Showing recent visits within past 365 days and meeting all other requirements Future Appointments Date Type Provider Dept 06/24/23 Appointment Kristina Galicia PAC [facility] [place] Showing future appointments within next 90 days and meeting all other requirements SSION NURSE documented in this encounter Plan of Treatment Not on file documented as of this encounter Visit Diagnoses Not on filedocumented in this encounter Additional Health Concerns Assessment Noted Time PHQ-9 Depression Total Score: 023 3:00 PM ADMISSION NURSE documented as of this encounter Care Teams Breakfast Server Relationship Specialty Start Date End Date Gr[place]Kristina, [facility] [address] [place] [address] PCP - General Physician Freight Adjuster 03/23/23 08/03/23 Jenni Clay APRN, COUNTY ASSESSOR [address] [place] [address] PCP - General Family Medicine 08/04/23 Rick Gutierrez MD [address] [place] [phone] Consulting Physician Neurology 05/26/23 Geraldine Bernabe MD [address] [place] [address] Consulting Physician Gastroenterology 03/26/23 Venita Riggins APRN, COUNTY ASSESSOR [address] [address] Nurse Practitioner Cardiology 09/29/23 11/06/24 Romain Esqueda MD [address] [phone] Consulting Physician General Surgery 11/12/23 Anamika Orozco APRN, COUNTY ASSESSOR [address] [place] [address] Nurse Practitioner Advanced Practice Nurse 12/23/23 Lucien Dominguez MD [address] [address] Consulting Physician Endocrinology 06/10/24 documented as of this encounter
--- OUTSIDE RECORDS SUMMARY | 2025-03-30 09:30 | XMS_ITS | Clinical Summary ---
Author Organization [facility] Address [address] [place] [address] Care Team Providers Care Street Contractor Name Role Phone Piper Stephen MD Unavailable Jenni Clay NP Primary Care Provider [phone] Allergies Active Allergy Reactions Criticality Noted Date [...] Nonreactive 07/13/2020 Lab Results Component Value Date [id number] Nonreactive 06/20/2022 Lab Results Component Value Date [...] of Binge Drinking Not on file 05/29 [place] Depression Scale Answer Date Recorded [place] Depression Scale Total 26 03/12/2023 The thought [...] on file Legal Sex Female 2:48 AM OFFICE SERVICES ASSISTANT Gender Identity Not on file Sexual Orientation [...] Dasilva, CNM Complications:Shoulder Dysto phong Delivery Location:This [facility] ([facility]) Last Filed Vital [...] HIGH RISK HPV Routine 06/20/2022 3:39 PM OFFICE SERVICES ASSISTANT Encounter for supervision of normal first in first trimester Encounter for Papanicolaou smear for cervical cancer screening Screening for human papillomavirus (HPV) N. GONORRHOEAE/C. TRACHOMATIS AMPLIFICATION Routine 06/20/2022 3:22 PM OFFICE SERVICES ASSISTANT Encounter for supervision of normal first in first trimester Screening examination for STD (sexually transmitted disease) HEPATITIS C ANTIBODY Routine 06/20/2022 3:19 PM OFFICE SERVICES ASSISTANT Encounter for supervision of normal first in first trimester from Last 3 Months or Most Recently Relevant to Health Maintenance Results * Pap with reflex to High Risk HPV (06/20/2022 3:39 PM OFFICE SERVICES ASSISTANT) Thin prep (Pap test) 06/20/2022 3:39 PM OFFICE SERVICES ASSISTANT 06/26/2022 1:03 PM OFFICE SERVICES ASSISTANT Narrative PATHOLOGY [facility] - 06/30/2022 1:29 PM OFFICE SERVICES ASSISTANT EPIC results best viewed via link to PDF [address] [address] Tele: Barbara Felix MD - Sheet Turner CYTOLOGY REPORT Note to Patients: This report [...] the details. Patient Name: PAUL LAMAS Address: [address] [place] [address] Gender: F : 2000 (Age: 21) Service: Location: N : [id number] Hospital #: [id number] [place] [facility] [place] Taken: 06/20/2022 Reported: 06/30/2022 Physician(s): Piper [...] CYTOLOGY ORDERABLES Final Result Performing Organization Address [facility] [address]/[facility] Co de Phone Number PATHOLOGY [facility] Laboratory Receiving [address] [place] [address] * N. gonorrhoeae/C. trachomatis Amplification Endocervical (06/20/2022 3:22 PM OFFICE SERVICES ASSISTANT) C. trachomatis Not Detected Not Detected [facility] N. gonorrhoeae Not Detected Not Detected [facility] Comment: Testing performed by the [facility]. This assay detects Chlamydia trachomatis and Neisseria gonorrhoeae by nucleic acid amplification testing (NAAT). This test is approved by the [facility] Food and Drug Administration and the performance characteristics have been verified by the laboratory. The performance characteristics of this test have not been evaluated in women or individuals less than 16 years of age. Endocervical (None) 06/20/19 3:22 PM OFFICE SERVICES ASSISTANT 06/20/2022 5:50 PM OFFICE SERVICES ASSISTANT Piper Stephen MD LAB MICROBIOLOGY - GENERAL OR DERABLES Final Result Performing Organization Address [facility] [address]/[facility] Co de Phone Number [facility] [address] Department [place] [address] * Hepatitis C antibody (06/20/2022 3:19 PM OFFICE SERVICES ASSISTANT) Hep C Ab Nonreactive Nonreactive [facility] Comment: Interpretive Data Nonreactive: Antibodies to HCV [...] revised on 2019. Blood 06/20/2022 3:19 PM OFFICE SERVICES ASSISTANT 06/20/2022 6:01 PM OFFICE SERVICES ASSISTANT Piper Stephen MD LAB MICROBIOLOGY - GENERAL OR DERABLES Edited Result - Final [facility] [address] Department [place] [address] from Last 3 Months or Most Recently Relevant to Health Maintenance Insurance [facility] Member Subscriber Plan / Payer (Ef fective 2024-Present) Name:Palu Lamas Relation to Subscriber:Self Name:Paul Lamas Payer ID:[id number] (NAIC) Type:MEDICAID RISK OTHER Address: [place] [id number] [employer] MEDICARE HMO Member Subscriber Plan / Payer (Ef fective 2024-Present) Name:Paul Lamas Relation to Subscriber:Self Name:Paul Lamas Payer ID:[id number] (NAIC) Type:MEDICARE RISK OTHER Address: [address] [facility] Advance Directives For more information, please contact: [phone] * Full Code (Latest Code Status on File) Date Activated Date Inactivated Comments 02/05/2023 10:05 AM 02/07/2023 3:12 PM * Full Code Date Activated Date Inactivated Comments 02/04/2023 8:28 AM 02/05/2023 10:05 AM Full CPR in case of cardiopulmonary arrest Care Teams Street Contractor Relationship Specialty Start Date End Date Jenni Clay NP [address] [place] [address] PCP - General Nurse Practitioner 07/26/24 Piper Stephen MD [address] [place] [address] Consulting Physician Obstetrics and Gynecology 06/10/22
[2025-03-30 09:33] LABS: EDUAAPPEAR Cloudy; EDUABILI Negative (Negative); EDUABLOOD Negative (Negative); EDUACOLOR1 Yellow; EDUAGLUCOSE Negative (Negative); EDUAKETONE Negative (Negative); EDUALEUKO Negative (Negative); EDUANITRATE Negative (Negative); EDUAPH 6.0; EDUAPROTEIN 2+ (Negative); EDUASPGRAVITY 1.030; EDUAUROBILI 0.2
--- NOTE | 2025-03-30 09:36 | ED_ITS ---
HPI - Female Genitourinary General Chief complaint: Urogenital-Female Stated complaint: uti Time Seen by Provider: 03/30/25 09:36 Source: patient, RN notes reviewed and old records reviewed Mode of arrival: ambulatory Limitations: no limitations History of Present Illness HPI Narrative: 24-year-old female presents to the [facility] with 2 day history of frequency, urgency, low back cramping, suprapubic cramping concerns she might have a UTI also concern for . Denies concern for STI. Last menstrual period was 28 February. Onset (ago): day(s) (2) Related Data Home Medications ?Medication ?Instructions ?Recorded ?Confirmed ?Last Taken ?Type No Home Medications 03/30/25 03/30/25 U nknown History Allergies Allergy/AdvReac Type Severity Reaction Status Date / Time cinnamon Allergy Severe Swelling Verified 03/30/25 09:30 of Lip/Tongue/Throat latex Allergy Mild Hives Verified 03/30/25 09:30 albuterol AdvReac Severe Anaphylaxis Verified 03/30/25 09:30 banana AdvReac Severe Anaphylaxis Verified 03/30/25 09:30 adhesive tape AdvReac Mild Hives Verified 03/30/25 09:30 amoxicillin AdvReac Mild Nausea and Verified 03/30/25 09:30 Vomiting grape flavor AdvReac Mild Nausea and Verified 03/30/25 09:30 Vomiting hydrocodone (From [facility]) AdvReac Mild Nausea and Verified 03/30/25 09:30 Vomiting prochlorperazine (From AdvReac Mild Anxiety Verified 03/30/25 09:30 Compazine) Review of Systems Review of Systems: All systems reviewed & are unremarkable except as noted in HPI and below Constitutional: Constitutional: Reports no additional constitutional complaints ENT: Reports system reviewed and no additional complaints, except as documented Cardiovascular: Cardiovascular: Reports no additional cardiovascular complaints, Denies chest pain and Denies dyspnea Respiratory: Respiratory: Reports no additional respiratory complaints, Denies chest congestion, Denies cough and Denies dyspnea Genitourinary: Genitourinary: Reports as per HPI Musculoskeletal: Musculoskeletal: Reports no additional musculoskeletal complaints Integumentary/Breasts: Skin/Breast: Reports system reviewed and no additional complaints, except as docu PMFSH Past Medical History Medical History COVID-14 January 2020 Deviated septum Panic disorder Borderline personality disorder Bipolar disorder Depression Anxiety Surgical History Surgical History H/O nasal septoplasty Hx of tonsillectomy No significant past surgical history Family History Family History Father Schizophrenia Mother Bipolar disorder Social History Social History Smoking status: Never smoker Alcohol intake: never Substance use: never Living arrangements: alone Occupation/Education: occupation Additional occupation/education comments: works at [employer] Gender identity (if verbalized by the patient): Female Sexual Orientation (if Verbalized by the Patient): Straight or Heterosexual Spiritual care concerns: No Comments At the time of my signature, I reviewed and agree with the nursing past medical, surgical, social, and family history. There is no relevant family history pertinent to the patient complaint. Exam Const: General: cooperative, healthy appearing, comfortable, no acute distress, well developed, alert and well nourished Nutritional Appearance: well nourished and obese Orientation/consciousness: patient oriented x3 Limitations: no limitations HENMT: Head: normal to inspection Mouth: Yes Normal oral and palatal mucosa present, Yes lip normal, Yes tongue normal and Yes moist mucous membranes abnormal Eyes: General: appearance normal, both eyes and all related structures Alignment and Position: alignment normal Neck: Neck: normal visual inspection, full ROM, no lymphadenopathy and no meningeal signs Chest: Chest palpation & inspection: normal inspection of the chest Resp: Effort & Inspection: normal respiratory effort and able to speak in complete sentences Auscultation: clear to auscultation bilaterally, no crackles, no rales, no rhonchi and no wheezes Cardio: Rate: regular rate GI: GI Palp: No abdominal tenderness, Yes Soft to palpation, No Tenderness to palpation present (GI) and No Guarding due to palpation present (GI) : General: Yes no CVA tenderness Skin: General skin exam: normal color and no rashes or lesions noted Neuro: General: patient oriented x3, gait normal, moves all extremities and no meningeal signs Cognition (Neuro): normal cognition Speech: normal speech Gait exam (Neuro): Normal gait present Extrem: General: normal to inspection, full ROM, capillary refill normal and normal gait Psych: Appearance: grossly normal and well kempt Mental Status: mental status grossly normal Speech and movement: Normal speech and movement present and Clear speech present Affect: normal affect Attitude: cooperative Course Course Level of Care: Express Care Visit Vital Signs Vital signs: Vital Signs Temperature 97.9 F 03/30/25 09:08 Pulse Rate 114 H 03/30/25 09:08 Respiratory Rate 20 03/30/25 09:08 Blood Pressure 149/68 H 03/30/25 09:08 Pulse Oximetry 100 03/30/25 09:08 Oxygen Delivery Room Air 03/30/25 09:08 Temperature 97.9 F 03/30/25 09:08 Pulse Rate 114 H 03/30/25 09:08 Respiratory Rate 20 03/30/25 09:08 Blood Pressure 149/68 H 03/30/25 09:08 Pulse Oximetry 100 03/30/25 09:08 Oxygen Delivery Room Air 03/30/25 09:08 reviewed MDM MDM Narrative Medical decision making narrative: patient sitting in exam room. Patient is nontoxic and vitals are stable. Patient with a history of anxiety. Presents with 2 day history of low abdominal cramping, frequency and urgency. Last menstrual period was 28 February, 1 month ago. Most likely symptoms due to menstrual. Urine does not show signs of infection. Urine negative . Patient appropriate for outpatient treatment with close follow-up Discharge instructions reviewed with patient, as well as provided in writing per nursing staff. The instructions also include specific and strict return/GO TO THE ER as well as f/u information. All questions have been answered, and the patient deny any further questions with discharge and discharge plan. Some parts of this dictation were generated by voice recognition software and may contain typographical and/or grammatical inaccuracies. Differential Diagnosis Differential Diagnosis: Differential diagnostic considerations for female urogenital? issues include urinary tract infection, bacterial vaginosis, cervicitis, ovarian cyst, vaginitis, STI exposure, ovarian torsion, ectopic , cyst of Bartholin?s gland, cystitis, dysmenorrhea.?? Lab Data Labs: Lab Results 03/30/25 Range/Units 09:18 POC Urine Color Yellow POC Urine Clarity Cloudy POC Urine pH 6.0 POC Ur Specif [place] 1.030 POC Urine Protein 2+ (Negative) POC Ur Glucose (UA) Negative (Negative) POC Urine Ketones Negative (Negative) POC Urine Blood Negative (Negative) POC Urine Nitrite Negative (Negative) POC Urine Bilirubin Negative (Negative) POC Urine Urobilinogen 0.2 POC U Leukocyte Esteras Negative (Negative) POC Urine HCG, Qual Negative (Negative) reviewed Critical Care Time Critical Care Time Critical Care Time: No Discharge Plan Discharge Clinical Impression: Urinary frequency with urgency, Urine test negative Patient Disposition: Home Condition: Stable Instructions: Dysuria (ED) Additional Instructions: follow-up with primary care provider Patient Language: Pashto Prescriptions: No Action No Home Medications Follow-up/Referrals: Clay,Jenni Herron APN [Primary Care Provider, Unknown] Stand Alone Forms: Work/School Release IP Time of Disposition: 09:41
--- OUTSIDE RECORDS SUMMARY | 2025-03-30 09:36 | XMS_ITS | CCD ---
Author Name Interface, [id number] lity Address [address], [place] [address] Organization [facility] Address [facility] [place], [place] [address] Reason for Visit Social History Date Name Value 06/03/2022 Sex Female
--- OUTSIDE RECORDS SUMMARY | 2025-03-30 09:36 | XMS_ITS | Patient Health Record ---
Author Organization [facility] [employer] [facility] Address [address] [place] [address] Care Team Providers Care Forensic Nurse Name Role Phone Clay Jenni STEPHEN Primary Care Provider Unavaila Joseph Daniels Unavailable [phone] Yumiko Taylor Unavailable [phone] Allergies Allergen (clinical drug ingredient) Drug/Non Drug [...] Duration) Notes Start Date End Date Status Omeprazole 40 MG Capsule Delayed Release Oral only in the morning 09/14/2023 Not-Taking Levothyroxine Sodium 50 MCG Tablet Oral 09/14/2023 Not-Taking Propranolol HCl 20 MG Tablet TAKE 1 TABLET BY MOUTH TWICE DAILY; Duration: 30 only in the morning Not-Taking Ondansetron 4 MG Tablet Disintegrating Oral 09/14/2023 Not-Taking carBAMazepine 200 MG Tablet 1 tablet Oral Twice a day; Duration: 30 days Not-Taking Nexplanon 68 MG Implant as directed Subcutaneous Not-Taking Levothyroxine Sodium 75 MCG Tablet Oral 09/14/2023 Not-Taking hydrOXYzine HCl 25 MG Tablet 1 tablet Orally three times a day; Duration: 30 days As needed 02/20/2025 Active Propranolol HCl 20 MG Tablet 1 tablet Oral Twice a day; Duration: 30 days Not-Taking FLUTICASONE PROPIONATE 110 MCG/ACTUATION HFA AEROSOL INHALER *Reorder from [employer] for eRx and Interaction Alerts* 09/14/2023 Not-Taking Arnuity Ellipta 100 MCG/ACT Aerosol Powder Breath Activated Inhalation 09/14/2023 Not-Taking Caplyta 10.5 MG Capsule TAKE 1 CAPSULE BY MOUTH DAILY; Duration: 30 Not-Taking Cricket Carbonate ER 300 MG Tablet Extended Release TAKE 1 TABLET BY MOUTH TWICE DAILY; Duration: 30 Not-Taking Cricket Carbonate ER 450 MG Tablet Extended Release TAKE 1 TABLET BY MOUTH TWICE DAILY WITH 300MG TABLET; Duration: 30 Not-Taking buPROPion HCl ER (XL) 300 MG Tablet Extended Release 24 Hour TAKE 1 TABLET BY MOUTH EVERY MORNING; Duration: 30 Not-Taking Immunizations Vaccine Route Administration Date Status Comme [...] 10/20/2001 Administered MMR Unknown 10/24/2004 Administered Novel Kbtpfagaz-[id number], preservative free Unknown 04/06/2009 Administered Novel Fudbepsdo-Z0U5-18, preservative free Unknown 07/19/2009 Administered Novel Nxaztvbek-V2O8-01, preservative free Unknown 03/30/2013 Administered Novel Kldzmrfqv-R0E1-09, preservative free Unknown 04/10/2015 Administered Novel Bwjofscmm-U7C3-42, preservative free Unknown 06/03/2017 Administered Novel Bqcbebqil-O5P1-40, preservative free Unknown 03/26/2018 Administered Pneumococcal conjugate [...] decision-maker Yes Do you have Power of Car Seat Maker for Health or [facility]? No Safety issues: Are there any firearms [...] Status Risk Notes Problem Generalized anxiety disorder (43686792) Generalized anxiety disorder (F41.1) Active confirmed Problem Posttraumatic stress disorder (28084988) Post-traumatic stress disorder, chronic (F43.12) Active confirmed Problem Bipolar affective disorder, currently depressed, moderate (625231912) Bipolar disorder with moderate depression (F31.32) Active confirmed Vital Signs Heart Rate 82 /min 02/20/2025 Height-cm 165.1 cm 02/20/2025 Blood pressure diastolic 73 mm Hg 02/20/2025 Weight-kg 95.26 kg 02/20/2025 Height 65.00 in 02/20/2025 Blood pressure systolic 110 mm Hg 02/20/2025 Weight 210 lbs 02/20/2025 BMI 34.94 kg/m2 02/20/2025 Encounters Encounter Location Date Provider Diagnosis [facility] [facility] [address] [facility] [address] [place] [address] 06/13/2024 Joseph Barnhartoza Generalized anxiety disorder F41.1 ; Post-traumatic stress disorder, chronic F43.12 ; Bipolar disorder with moderate depression F31.32 and Other long goods drier (current) drug therapy Z79.899 [facility] [address] [facility] [address] [place] [address] 09/12/2024 Yumiko Taylor [facility] [employer] [facility] [address] [place] [address] 02/20/2025 Joseph Garcia Generalized anxiety disorder F41.1 ; Post-traumatic stress disorder, chronic F43.12 ; Bipolar disorder with moderate depression F31.32 and Other long goods drier (current) drug therapy Z79.899 [facility] [address] [place] [address] 06/10/2024 Joseph Garcia Bipolar disorder wit h moderate depression F31.32 [facility] [address] [place] [address] 06/13/2024 Joseph Garcia [facility], [facility] [address] [place] [address] 09/12[facility] [address] [place] [address] 06/10/2024 [facility] [address] [place] [address] 06/10/2024 [facility] [address] [place] [address] 06/28/2024 [facility], [place] [address] [place] [address] 06/29/2024 [facility] [place] [address] [place] [address] 07/17/2024 [facility], [facility] [address] [place] [address] 08/02/2024 [facility], [place] [address] [place] [address] 02/07/2025 [facility] [address] [place] [address] 02/08/2025 [facility] [address] [place] [address] 02/08/2025 Joseph Garcia Assessments Encounter Date Diagnosis (ICD Code) Assessment Notes Treatment Notes Treatment Clinical Notes Section Notes 06/10/2024 Bipolar disorder with moderate depression (ICD-10 - F31.32) 06/13/2024 Generalized anxiety disorder (ICD-10 - F41.1) She is not adherent with medication , taking carbamazep ine, lithium, caplyta in the morning 02/20/2025 Generalized anxiety disorder (ICD-10 - F41.1) intermittent symptoms 02/20/2025 Post-traumatic stress disorder, chronic (ICD-10 - F43.12) participates in counseling 02/20/2025 Bipolar disorder with moderate depression (ICD-10 - F31.32) intermittent symptoms 06/13/2024 Post-traumatic stress disorder, chronic (ICD-10 - F43.12) She is not adherent with medication , taking carbamazep ine, lithium, caplyta in the morning 06/13/2024 Bipolar disorder with moderate depression (ICD-10 - F31.32) lithium er 450mg & 300mg bid, Caplyta 10.5mg, Carbamazepine 200mg bid, bupropion xl 300mg daily She is not adherent with medication , taking carbamazep ine, lithium, caplyta in the morning 02/20/2025 Other long goods drier (current) drug therapy (ICD-10 - Z79.899) 06/13/2024 Other long goods drier (current) drug therapy (ICD-10 - Z79.899) She is not adherent with medication , taking carbamazep ine, lithium, caplyta in the morning 06/13/2024 Other 1. 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 Anxiety and OCD: - Continue propranolol 20 mg in the morning Plan: - Encourage the use of a pill service planner for nighttime medications to improve adherence - Consider counseling for anxiety management and OCD 3. Hypothyroidism: - Continue Synthroid as prescribed - Monitor thyroid levels (T4: 0.8, TSH: 2.556) Plan: - Follow up with government relations director as needed 4. Abnormal lipid panel: Plan: - Encourage patient to follow up with primary care provider for further evaluation and management 5. Low testosterone and DHEA levels: Plan: - Follow up with government relations director as needed for further evaluation and management 6. Counseling: Plan: - Expedite scheduling for counseling services to address depression, anxiety, and OCD symptoms 7. 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 Anxiety and OCD symptoms Patient reports moderate anxiety and OCD symptoms persisting despite medication discontinuation. She describes compulsive hand washing up to 50 times and episodes of overwhelming anxiety combined with depression lasting 1-2 days. These episodes involve anxiety about homework with concentration difficulties. Patient has developed improved coping mechanisms including thinking things through and stepping back to assess situations rather than letting everything go viral. 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 Plan: - Start hydroxyzine 25 mg three times daily as needed for anxiety - Patient will attempt to work through anxiety episodes using coping skills before taking medication - Monitor mood and anxiety symptoms Medication discontinuation management Patient discontinued all psychiatric medications on January 22 after completing antibiotic course for strep throat. Reports feeling better off medications with improved sleep (no uncontrolled willy), better appetite, increased libido interest, and overall sense of normal functioning. Recent thyroid panel obtained by primary care provider showed normal results despite discontinuing thyroid medication. Patient demonstrates good insight into warning signs of mood deterioration such as sleep disturbances. Plan: - Continue current medication-free approach given patient's improved functioning - Monitor for mood changes and sleep disturbances as early warning signs - Patient educated on when to seek medical attention if symptoms worsen the note is transcribed using speech recognition software. It is a reflection of a visit with the patient. It might have some inaccuracy, including medication names and transcribing errors, though efforts have been made to correct them. Plan Of Treatment Future Test Test Name Order Date LITHIUM (613) 06/13/2024 Next Appt Details Provider Name:Joseph neff, 04/17/2025 09:00:00 AM, [address], [place], [address], Insurance Providers Payer Name Payer Address Payer Phone Subscriber Number Group Number Insured Name Patient Relationship to Insured Coverage Start Date Coverage End Date Medicare-I l Medicare [address] [place] [phone] [id number] PAUL MAIRN Self - patient is the insured Medicaid-I l Medicaid [address] [address] [place] [address] [id number] PAUL MARIN Self - patient is the insured [employer] [address] [address] [place] [address] [id number] PAUL MARIN Self - patient is the insured Medical [...]
[2025-03-30 09:37] LABS: BEDSIDEPREGUCG Negative (Negative)
--- OUTSIDE RECORDS SUMMARY | 2025-03-30 09:38 | XMS_ITS | CCD ---
Author Name Interface, [id number] lity Address [place], [place] [address] Organization [facility] Address Located Within [facility], [place] [address] Reason for Visit Social History Date Name Value 06/03/2022 Sex Female
== END 2025-03-30 09:43 | disposition home or self-care (01) ==
PROVIDERS: Emergency Provider Nurse Practitioner; PCP Nurse Practitioner Family
DX: N39.0 Urinary tract infection, site not specified (principal); Z32.02 Encounter for pregnancy test, result negative; Z86.16 Personal history of COVID-19
CPT/HCPCS: 81003; 81025; 87086; 99213; G0463

== ENCOUNTER 2025-04-10 08:47 | Emergency (ER) | payer MEDICARE, MEDICAID, SELFPAY ==
[2025-04-10 08:54] VITALS: BP 148/76; PULSE 97; RESP 20; TEMP 37.1; O2SAT 100
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
[2025-04-10 10:02] LABS: EDCOVIDSCREEN Negative (Negative); EDINFLUASCREEN Negative (Negative); EDINFLUBSCREEN Negative (Negative)
== END 2025-04-10 09:25 | disposition home or self-care (01) ==
PROVIDERS: Emergency Provider Registered Nurse; PCP Nurse Practitioner Family
DX: J06.9 Acute upper respiratory infection, unspecified (principal); R05.2 Subacute cough; Z20.822 Contact with and (suspected) exposure to COVID-19
CPT/HCPCS: 87426; 87804; 99213; G0463